=== PATIENT | male | born 1965 | race Caucasian/White ===

== ENCOUNTER 2021-09-01 22:22 | Inpatient (IN) ==
--- NOTE | 2021-09-01 23:35 | Emergency Department Note ---
History of Present Illness General Chief complaint: Fall Stated complaint: SHAKING, FALLING, NOT EATING Time Seen by Provider: 09/01/21 22:58 Source: patient and family Mode of arrival: wheelchair Limitations: no limitations History of Present Illness Provider complaint: Weakness, multiple falls Onset (ago): month(s) Maximum Pain Intensity: 7 Relieved By: + none Exacerbated By: + movement Associated symptoms: + headaches, + loss of appetite, + malaise, + nausea/vomiting, + syncope and + weakness; no chest pain, no fever/chills or no shortness of breath Treatments prior to arrival: NSAID This is a 56-year-old male presents emergency department complaining of [facility] ed weakness, multiple falls, back pain, poor appetite, abdominal pain. Family bedside states believe the symptoms began about a month ago, patient states he initially began to not feel well 3 months ago however got much worse a month ago. Patient relates he has low back pain in addition and falls frequently because his legs feel weak and "give out". Patient denies any prior history of back problems or prior surgery. Patient states he has struck his head on falling, is unsure if he has lost consciousness because he is fallen so many times he cannot recall. Patient denies any recent change in medications. Patient states he is also having accompanying diarrhea, he states he has seen blood once otherwise no recurrent bloody bowel movements. Denies melena. Patient states he is intermittently nauseated, however has not vomited. Family bedside states he has had diminishing oral intake which they felt was contributing to the weakness. Patient denies chest pain or trouble breathing. He states he has mild paresthesias in the lower extremities also, denies incontinence. Patient states he feels his low back pain radiates forward into the abdomen. Family states he has multiple bruises from falling. Patient states he feels that is making his knee pain worse. Pt seen during a time of high acuity and national emergency pandemic while wearing PPE. Home Medications Medication Instructions Recorded Confirmed Type No Known Home Medications 09/02/21 09/02/21 History Allergies Allergy/AdvReac Type Severity Reaction Status Date / Time No Known Allergies Allergy Verified 09/02/21 00:01 Past Med/Surg History Medical History Alcohol abuse Family History Mother Diabetes Father Diabetes Social History Smoking Status: Current every day smoker Preferred Language: Mongolian Communication Ability: confused [employer] Specialist Required: No Feels Safe at Home: Yes Assistive Devices: Glasses Review of Systems A total of 10 systems reviewed and were otherwise negative All systems reviewed & are unremarkable except as noted in HPI & below Physical Exam Vital Signs Vital Signs - 24 hr 09/02/21 05:59 Pulse Rate [Right Finger] 84 Respiratory Rate 18 Respiratory Effort / Characteristics Non-Labored Spontaneous Respiratory Depth Normal Respiratory Pattern Regular Blood Pressure [Right Arm] 130/79 Blood Pressure Mean [Right Arm] 96 Pulse Oximetry 96 Oxygen Delivery Method Room Air GENERAL: alert, ill appearing, well nourished, no distress, non-toxic, laying left lateral recumbent EYE EXAM: normal conjunctiva, PERRL and EOM's grossly intact OROPHARYNX: no exudate, no erythema, lips, buccal mucosa, and tongue normal and mucous membranes are dry NECK: supple, no nuchal rigidity, no adenopathy, non-tender LUNGS: Clear to auscultation. Normal chest wall mechanics, no w/r/r HEART: no murmurs, S1 normal and S2 normal ABDOMEN: abdomen soft, non-tender, normo-active bowel sounds, no masses, no rebound or guarding. Dull to percussion. BACK: Back is symmetrical on inspection and there is no deformity, midline tenderness at superior lumbar region, no CVA tenderness. No pain with palpation over the sacrum or PSIS bilaterally. SKIN: no rashes and no bruising UPPER EXTREMITIES: upper extremities are grossly normal. FROM, nml pulses b/l. LOWER EXTREMITIES: No pitting edema. FROM, nml pulses b/l. Multiple contusions noted bilateral knees and distal lower extremities. Ecchymotic areas in various stages of healing. Healing abrasion noted to the left anterior knee. Patient is able to raise his legs up off the bed without ataxia although states this makes his back pain worse and causes pain in bilateral thighs. NEURO EXAM: Normal sensorium, cranial nerves II-XII grossly intact, normal speec h, no gross weakness of arms, no gross weakness of legs. Gross sensation intact. Course Course 0420: Updated on results. States he has previously had hepatitis and was treated. Denies current alcohol use or frequent use of tylenol. 07: Discussed with Dr. Reid. Administered Medications Folic Acid (Folic Acid 1 Mg Tab) 1 mg PO QAM DEVON Stop: 10/02/21 08:59 Last Admin: 09/02/21 10:41 Dose: 1 mg Documented by: [id number] Thiamine HCl 500 mg/ Sodium (Chloride) 55 mls @ 220 mls/hr IV Q8H DEVON Stop: 09/04/21 09:44 Last Admin: 09/03/21 01:53 Dose: 220 mls/hr Documented by: [id number] Infusion: 09/02/21 19:16 Dose: 220 mls/hr Documented by: [id number] Admin: 09/02/21 18:41 Dose: 220 mls/hr Documented by: [id number] Infusion: 09/02/21 11:21 Dose: 0 mls/hr Documented by: [id number] Admin: 09/02/21 10:42 Dose: 220 mls/hr Documented by: [id number] Lorazepam (Ativan) 1 mg in 2 mls @ 2 mls/min IV ONE PRN; Protocol PRN Reason: EtoH Withdrawal AWSS 6-10 Stop: 10/02/21 09:32 Last Admin: 09/02/21 15:55 Dose: 2 mls/min Documented by: [id number] Nicotine (Nicotine 21 Mg/24 Hr Tdsy) 21 mg TD QAM DEVON Stop: 10/02/21 15:06 Last Admin: 09/02/21 16:02 Dose: 21 mg Documented by: [id number] Discontinued Medications Lactated Ringer's (Lr) 1,000 mls @ 250 mls/hr IV .Q4H DEVON Stop: 10/01/21 23:44 Last Admin: 09/02/21 16:09 Dose: Not Given Documented by: [id number] Infusion: 09/02/21 16:08 Dose: 0 mls/hr Documented by: [id number] Admin: 09/02/21 10:41 Dose: 250 mls/hr Documented by: [id number] Infusion: 09/02/21 08:58 Dose: 250 mls/hr Documented by: [id number] Admin: 09/02/21 04:58 Dose: 250 mls/hr Documented by: [id number] Infusion: 09/02/21 04:07 Dose: 0 mls/hr Documented by: [id number] Admin: 09/02/21 00:00 Dose: 250 mls/hr Documented by: [id number] Ceftriaxone Sodium (Rocephin) 2,000 mg in 70 mls @ 140 mls/hr IV NOW STA Stop: 09/02/21 01:52 Last Infusion: 09/02/21 04:08 Dose: 0 mls/hr Documented by: [id number] Admin: 09/02/21 01:45 Dose: 140 mls/hr Documented by: [id number] Folic Acid 1 mg/ Syringe 10 mls @ 5 mls/min IV NOW STA Stop: 09/02/21 14:36 Last Admin: 09/02/21 16:02 Dose: 5 mls/min Documented by: [id number] Ioversol (Optiray 320 100ml) 99 ml IV ONCE ONE Stop: 09/02/21 01:54 Last Admin: 09/02/21 01:53 Dose: 1 ml Documented by: [id number] Medical Decision Making Differential Diagnosis Differential Diagnosis includes but is not limited to dehydration, stroke, anemia, hypoglycemia, hyponatremia, hypernatremia, urinary tract infection, pneumonia, bronchitis, sepsis, gastroenteritis, additional abdominal pathology, metabolic abnormalities and infections. Medical Records Attestation: I reviewed the patient's medical records. Home Medications Current Medication List: was personally reviewed by me Laboratory Data Attestation: I reviewed the patient's lab results. Result diagrams: 09/01/21 22:55 09/01/21 22:55 Lab Results 09/01/21 09/01/21 09/01/21 Range/Units 22:55 22:55 22:55 WBC 8.37 (4.8-10.8) K/uL RBC 3.44 L (4.7-6.1) M/uL Hgb 14.1 (14.0-18.0) g/dL Hct 40.5 L (42-52) % MCV 117.7 H (80-100) fL MCH 41.0 H (25-34) pg MCHC 34.8 (32-36) g/dL RDW Std Deviation 59.5 H (36.4-46.3) fL RDW Coeff of Chrissy 13.9 (11.5-14.5) % Plt Count 137 (130-400) K/uL MPV 12.0 H (7.4-10.4) fL Immature Gran % (Auto) 0.4 % Neut % (Auto) 67.6 % Lymph % (Auto) 22.2 % [place] % (Auto) 8.6 % Eos % (Auto) 0.7 % Baso % (Auto) 0.5 % Neut # (Auto) 5.66 (1.4-6.5) K/uL Lymph # (Auto) 1.86 (1.2-3.4) K/uL [place] # (Auto) 0.72 H (0.11-0.59) K/uL Eos # (Auto) 0.06 (0-0.5) K/uL Baso # (Auto) 0.04 (0-0.2) K/uL Immature Gran # (Auto) 0.03 H (0.00-0.02) K/uL Macrocytosis Present PT 13.1 H (9.0-12.0) Seconds INR 1.3 H (0.9-1.1) Sodium 136 (136-145) mmol/L Potassium 3.2 L (3.5-5.1) mmol/L Chloride 93 L (98-107) mmol/L Carbon Dioxide 31 (21-32) mmol/L Anion Gap 12.0 H (3-11) BUN 15 (7-18) mg/dl Creatinine 1.36 (0.6-1.4) mg/dl Est Cr Clr Drug Dosing 63.1 ml/min Est GFR ( Amer) 66.0 ml/min Est GFR (Non-Af Amer) 57.0 ml/min BUN/Creatinine Ratio 11.3 (10-20) Glucose 112 H (70-99) mg/dl Calcium 8.3 L (8.5-10.1) mg/dl Magnesium 2.2 (1.8-2.4) mg/dl Total Bilirubin 3.2 H (0.2-1) mg/dl AST 115 H (15-37) U/L ALT 43 (12-78) U/L Alkaline Phosphatase 107 (45-117) U/L Troponin I < 0.015 (0-0.045) ng/ml NT-Pro-B Natriuret Pep 1739 H (0-900) pg/ml Total Protein 6.3 L (6.4-8.2) gm/dl Albumin 1.6 L (3.4-5.0) gm/dl Globulin 4.7 H (2.5-4.0) gm/dl Albumin/Globulin Ratio 0.3 L (0.9-2) Lipase 594 H (73-393) U/L TSH 3.780 (0.300-4.500) uIu/ml Urine Color Urine Appearance (Clear) Urine pH (4.5-7.5) Ur Specific [place] (1.000-1.030) Urine Protein (Negative) Urine Glucose (UA) (Negative) Urine Ketones (Negative) Urine Blood (Negative) Urine Nitrite (Negative) Urine Bilirubin (Negative) Urine Urobilinogen (Negative) Ur Leukocyte Esterase (Negative) Urine WBC (Auto) (0-5) /hpf Urine RBC (Auto) (0-4) /hpf U Hyaline Cast (Auto) (0-5) /lpf U Epithel Cells (Auto) (0-5) /lpf Urine Bacteria (Auto) (Negative) Urine Mucus (None Prsent) Urine Yeast Lyme Disease IgG Ab (Negative) Lyme Disease IgM Ab (Negative) SARS-CoV-2 (PCR) (Negative) 09/01/21 09/02/21 09/02/21 Range/Units 23:30 00:11 00:31 WBC (4.8-10.8) K/uL RBC (4.7-6.1) M/uL Hgb (14.0-18.0) g/dL Hct (42-52) % MCV (80-100) fL MCH (25-34) pg MCHC (32-36) g/dL RDW Std Deviation (36.4-46.3) fL RDW Coeff of Chrissy (11.5-14.5) % Plt Count (130-400) K/uL MPV (7.4-10.4) fL Immature Gran % (Auto) % Neut % (Auto) % Lymph % (Auto) % [place] % (Auto) % Eos % (Auto) % Baso % (Auto) % Neut # (Auto) (1.4-6.5) K/uL Lymph # (Auto) (1.2-3.4) K/uL [place] # (Auto) (0.11-0.59) K/uL Eos # (Auto) (0-0.5) K/uL Baso # (Auto) (0-0.2) K/uL Immature Gran # (Auto) (0.00-0.02) K/uL Macrocytosis PT (9.0-12.0) Seconds INR (0.9-1.1) Sodium (136-145) mmol/L Potassium (3.5-5.1) mmol/L Chloride (98-107) mmol/L Carbon Dioxide (21-32) mmol/L Anion Gap (3-11) BUN (7-18) mg/dl Creatinine (0.6-1.4) mg/dl Est Cr Clr Drug Dosing ml/min Est GFR ( Amer) ml/min Est GFR (Non-Af Amer) ml/min BUN/Creatinine Ratio (10-20) Glucose (70-99) mg/dl Calcium (8.5-10.1) mg/dl Magnesium (1.8-2.4) mg/dl Total Bilirubin (0.2-1) mg/dl AST (15-37) U/L ALT (12-78) U/L Alkaline Phosphatase (45-117) U/L Troponin I (0-0.045) ng/ml NT-Pro-B Natriuret Pep (0-900) pg/ml Total Protein (6.4-8.2) gm/dl Albumin (3.4-5.0) gm/dl Globulin (2.5-4.0) gm/dl Albumin/Globulin Ratio (0.9-2) Lipase (73-393) U/L TSH (0.300-4.500) uIu/ml Urine Color [place] Urine Appearance Cloudy A (Clear) Urine pH 5.5 (4.5-7.5) Ur Specific [place] 1.026 (1.000-1.030) Urine Protein 1+ H (Negative) Urine Glucose (UA) Negative (Negative) Urine Ketones Trace H (Negative) Urine Blood Negative (Negative) Urine Nitrite Positive A (Negative) Urine Bilirubin 3+ H (Negative) Urine Urobilinogen Positive H (Negative) Ur Leukocyte Esterase 1+ H (Negative) Urine WBC (Auto) 1-5 (0-5) /hpf Urine RBC (Auto) 0-4 (0-4) /hpf U Hyaline Cast (Auto) 10-30 H (0-5) /lpf U Epithel Cells (Auto) 10-20 H (0-5) /lpf Urine Bacteria (Auto) Negative (Negative) Urine Mucus Present A (None Prsent) Urine Yeast Not Reportable Lyme Disease IgG Ab Negative (Negative) Lyme Disease IgM Ab Negative (Negative) SARS-CoV-2 (PCR) NEGATIVE (Negative) Imaging Data Radiologist's Impression: Lumbar Spine CT 09/01/21 23:28 CT lumbar spine w con HISTORY: back pain, recent trauma TECHNIQUE: Multiaxial CT images the lumbar spine performed and reformatted in the sagittal and coronal plane following the intravenous administration of contrast COMPARISON STUDY: None. FINDINGS: There is no fracture or subluxation. No high-grade central canal stenosis by CT technique. Paraspinal soft tissues are unremarkable. Disc spaces are preserved for age. IMPRESSION: No fractures within the lumbar spine. ACT 112: Negative or not required by law. Electronically signed by: Layo Kapoor M.D. 09/02/2021 8:44 AM Lumbar Spine MRI 09/02/21 04:10 MRI OF THE LUMBAR SPINE WITHOUT CONTRAST CLINICAL HISTORY: leg weakness, incontinence COMPARISON STUDY: Lumbar spine CT September 02, 2021. TECHNIQUE: Utilizing a 1.5 Bhavna magnet and dedicated coil, multiplanar, multiecho imaging of the lumbar spine was performed without IV contrast. FINDINGS: For purposes of numbering on this exam, the L5-S1 disc space is assigned to axial image 23 of 25. Alignment of the lumbar spine is anatomic. Vertebral body heights are maintained. There is no marrow edema or marrow replacement. There is no fracture. Several small Schmorl's nodes are noted. There is no intracanalicular mass or fluid collection. The conus terminates at the L1-L2 level. Exam is mildly compromised by motion artifact but is diagnostic. Paravertebral soft tissues are unremarkable. L1-2: The central canal and neural foramen are patent. L2-3: The central canal and neural foramen are patent. L3-4: There is mild facet arthrosis. Central canal and neural foramen are patent L4-5: There is mild disc bulge with facet arthrosis. There is mild narrowing of the central canal, lateral recesses and neural foramen. L5-S1: There is mild disc bulge and mild facet arthrosis. Central canal is patent. There is mild narrowing of the left neural foramen. Right neural foramen is patent. IMPRESSION: 1. No acute process within the lumbar spine. 2. Mild multilevel degenerative disc disease and facet arthrosis, as described above. ACT 112: Negative or not required by law. Electronically signed by: William Anderson M.D. 09/02/2021 7:[address] head: No intracranial hemorrhage. No significant mass-effect or midline shift. No skull fracture. Incidental minimal parenchymal involutional changes and periventricular deep white matter hypodense changes noted. No significant overlying acute traumatic soft tissue abnormality. No radiopaque foreign body. The paranasal sinuses and mastoid air cells are well aerated. Radiologist: Sampson Baltazar MD CT C-spine: Motion artifact despite repeated imaging attempts. No definite acute osseous traumatic injury. No abnormal alignment. Incidental multilevel disc and facet hypertrophic changes results in minimal encroachment on the central canal and chronic appearing osseous neuroforaminal encroachment. Radiologist: Sampson Baltazar MD CT abdomen and pelvis with contrast: The intra-abdominal solid organs demonstrate no evidence for significant acute traumatic injury. Incidental similar hepatic steatosis when compared to the examination 01/27/2014. No traumatic bowel injury. No free intra peritoneal fluid or pneumoperitoneum. The retroperitoneal vascular structures are intact. No retroperitoneal hematoma. The bladder is mildly distended with diffuse mucosal prominence. No bladder stones. No acute osseous or significant overlying acute traumatic soft tissue abnormality. Radiologist: Sampson Baltazar MD CT L-spine: No acute osseous traumatic injury or abnormal alignment. Radiologist: Sampson Baltazar MD ECG Data Attestation: I personally reviewed and interpreted this ECG as follows: Indication: + weakness Rate (beats per minute): 77 Rhythm: + normal sinus ECG Intervals/blocks: + First degree AV block, + Normal QRS and + Prolonged QT ECG [place]: + Normal MDM Narrative This is an ill-appearing 56-year-old male brought in due to multiple falls, decreased oral intake, and worsening weakness. Patient with multiple complaints and positive symptoms on a review of systems. Patient was afebrile and hemodynamically stable. Labs drawn and sent with several abnormalities noted. Due to the various complaints patient sent for multiple images via CT as well as an accompanying chest x-ray. Due to additional consideration given his weakness and recurrent falls as well as increased low back pain, patient ultimately sent for a lumbar spine MRI as well. No evidence of cauda equina or acute spine pathology. Imaging reassuring, no acute trauma noted. Lyme and Covid negative. Patient states he did have a prior history of hepatitis that was treated. A repeat hepatitis panel was added. Ammonia level was added in addition although patient was oriented and conversational here. He was rehydrated as a precaution. Due to concern for worsening symptoms, inability to care for self, and concern for safety given the recurrent falls, case was discussed with hospitalist for additional evaluation and management. An order was placed for continuous cardiac monitoring. The monitor shows a rate of _86_ with _normal sinus__ rhythm. Impression & Plan Weakness, Abnormal LFTs, Acute UTI (urinary tract infection), Back pain Discharge Plan Visit Data Chief Complaint: Fall Stated Complaint: SHAKING, FALLING, NOT EATING ED Provider: Germaine Garcia Discharge Problem: Weakness, Abnormal LFTs, Acute UTI (urinary tract infection), Back pain Patient Disposition: Admitted As Inpatient Condition: Fair Discharge Instructions Interventions: ED Discharge Assessment Last Done: 09/02/21 09:04
[2021-09-01 23:42] LABS: Basophils # (auto) 0.04 K/uL (0-0.2); Basophils % (auto) 0.5 %; Eosinophils # (auto) 0.06 K/uL (0-0.5); Eosinophils % (auto) 0.7 %; Hematocrit (blood only) 40.5 % (42-52); Hemoglobin 14.1 g/dL (14.0-18.0); Immature Granulocytes # (auto) 0.03 K/uL (0.00-0.02); Immature Granulocytes % (auto) 0.4 %; Lymphocytes # (auto) 1.86 K/uL (1.2-3.4); Lymphocytes % (auto) 22.2 %; Mean Corpuscular Hgb Conc 34.8 g/dL (32-36); Mean Corpuscular Volume 117.7 fL (80-100); Monocytes # (auto) 0.72 K/uL (0.11-0.59); Monocytes % (auto) 8.6 %; Neutrophils # (auto) 5.66 K/uL (1.4-6.5); Neutrophils % (auto) 67.6 %; Platelet Count 137 K/uL (130-400); RDW Coefficient of Variation 13.9 % (11.5-14.5); RDW Standard Deviation 59.5 fL (36.4-46.3); Red Blood Count 3.44 M/uL (4.7-6.1); White Blood Count 8.37 K/uL (4.8-10.8)
[2021-09-01 23:50] LABS: Alanine Aminotransferase 43 U/L (12-78); Albumin Level 1.6 gm/dl (3.4-5.0); Aspartate Aminotransferase 115 U/L (15-37); BUN Creatinine Ratio 11.3 (10-20); Blood Urea Nitrogen 15 mg/dl (7-18); Calcium 8.3 mg/dl (8.5-10.1); Carbon Dioxide 31 mmol/L (21-32); Chloride 93 mmol/L (98-107); Creatinine Clr Calc Pharmacy 63.1 ml/min; Glucose 112 mg/dl (70-99); Lipase 594 U/L (73-393); Magnesium 2.2 mg/dl (1.8-2.4); Potassium 3.2 mmol/L (3.5-5.1); Sodium 136 mmol/L (136-145)
[2021-09-01 23:52] LABS: INR 1.3 (0.9-1.1); Prothrombin Time 13.1 Seconds (9.0-12.0)
[2021-09-02 00:01] LABS: Albumin Globulin Ratio 0.3 (0.9-2); Alkaline Phosphatase 107 U/L (45-117); Bilirubin,Total 3.2 mg/dl (0.2-1); Globulin 4.7 gm/dl (2.5-4.0); NT Pro B Type Natriuretic Pept 1739 pg/ml (0-900); Total Protein 6.3 gm/dl (6.4-8.2); Troponin I < 0.015 ng/ml (0-0.045)
[2021-09-02 00:05] LABS: Macrocytosis Present
[2021-09-02 00:46] LABS: Appearance Urine Cloudy (Clear); Bacteria Urine Automated Negative (Negative); Blood Urine Negative (Negative); Color Urine Orange; Glucose Urine UA Negative (Negative); Ketones Urine Trace (Negative); Leukocyte Esterase Urine 1+ (Negative); Nitrite Urine Positive (Negative); Protein Urine 1+ (Negative); RBC Urine Automated 0-4 /hpf (0-4); Specific Gravity Urine 1.026 (1.000-1.030); Urobilinogen Urine Positive (Negative); pH Urine 5.5 (4.5-7.5)
[2021-09-02 00:57] LABS: Bilirubin Urine 3+ (Negative)
[2021-09-02 00:58] LABS: Mucus Urine Present (None Prsent)
[2021-09-02] MEDS ORDERED: cefTRIAXone SODIUM 2,000 MG/70 ML BAG IV STA (01:23)
[2021-09-02] MEDS ORDERED: OPTIRAY 320 100ml IV ONE (01:53)
[2021-09-02 01:57] LABS: Lyme Ab IgG w/WB Rflx Negative (Negative); Lyme Ab IgM w/WB Rflx Negative (Negative)
[2021-09-02] MEDS: LACTATED RINGER'S 1,000 ML IV SCH ×4 (04:58→16:09)
--- NOTE | 2021-09-02 07:51 | Magnetic Resonance Report ---
MRI OF THE LUMBAR SPINE WITHOUT CONTRAST CLINICAL HISTORY: leg weakness, incontinence COMPARISON STUDY: Lumbar spine CT September 02, 2021. TECHNIQUE: Utilizing a 1.5 Bhavna magnet and dedicated coil, multiplanar, multiecho imaging of the [facility] spine was performed without IV contrast. FINDINGS: For purposes of numbering on this exam, the L5-S1 disc space is assigned to axial image 23 of 25. Ali gnment of the lumbar spine is anatomic. Vertebral body heights are maintained. There is no marrow reno ma or marrow replacement. There is no fracture. Several small Schmorl's nodes are noted. There is no intracanalicular mass or fluid collection. The conus terminates at the L1-L2 level. Exam is mildly co mpromised by motion artifact but is diagnostic. Paravertebral soft tissues are unremarkable. L1-2: The central canal and neural foramen are patent. L2-3: The central canal and neural foramen are patent. L3-4: There is mild facet arthrosis. Central canal and neural foramen are patent L4-5: There is mild disc bulge with facet arthrosis. There is mild narrowing of the central canal, la teral recesses and neural foramen. L5-S1: There is mild disc bulge and mild facet arthrosis. Central canal is patent. There is mild narr owing of the left neural foramen. Right neural foramen is patent. IMPRESSION: 1. No acute process within the lumbar spine. 2. Mild multilevel degenerative disc disease and facet arthrosis, as described above. ACT 112: Negative or not required by law. Electronically signed by: William Anderson M.D. 09/02/2021 7:49 AM
--- NOTE | 2021-09-02 08:45 | CT Scan Report ---
CT lumbar spine w con HISTORY: back pain, recent trauma TECHNIQUE: Multiaxial CT images the lumbar spine performed and reformatted in the sagittal and [place] l plane following the intravenous administration of contrast COMPARISON STUDY: None. FINDINGS: There is no fracture or subluxation. No high-grade central canal stenosis by CT technique. Paraspinal soft tissues are unremarkable. Disc spaces are preserved for age. IMPRESSION: No fractures within the lumbar spine. ACT 112: Negative or not required by law. Electronically signed by: Layo Kapoor M.D. 09/02/2021 8:44 AM
--- NOTE | 2021-09-02 09:13 | CT Scan Report ---
ABDOMEN AND PELVIS CT WITH IV CONTRAST CT DOSE: HISTORY: Generalized abdominal pain. Recent trauma. TECHNIQUE: Multiaxial CT images of the abdomen and pelvis were performed following the use of intrave nous contrast. A dose lowering technique was utilized adhering to the principles of ALARA. COMPARISON STUDY: Abdomen and pelvis CT 01/27/2014. FINDINGS: The lung bases are clear. No pneumoperitoneum. No pneumatosis. No acute fractures within th e visualized osseous structures. Hepatic steatosis. The gallbladder, pancreas, spleen, and right adre nal gland are unremarkable. The main portal vein is patent. There is a 1.5 cm cyst within the upper p ole the right kidney. There are are a few additional subcentimeter hypodense lesions within the kidne ys which are technically too small to characterize. A 1.5 cm left adrenal gland nodule. This remains stable and likely represents a benign adrenal adenoma. There is a 1.6 cm hypodense lesion within the upper pole the left kidney. This does not clearly represent a simple cyst. No retroperitoneal lymphad enopathy. Mild calcified plaque within the normal caliber abdominal aorta. Bladder wall thickening is likely due to underdistention. No pelvic free fluid. No bowel wall thickening or obstruction. Normal appendix. IMPRESSION: 1. No acute traumatic process within the abdomen or pelvis. 2. Hepatic steatosis. 3. A 1.5 cm hypodense lesion within the upper pole the left kidney. This does not clearly represent a simple cyst but could represent a hyperdense cyst. Dedicated follow-up nonemergent renal ultrasound or renal MRI is recommended for further evaluation. 4. Bladder wall thickening. This is likely due to underdistention. ACT 112: Positive. There are findings on this exam that require communication between the performing entity and the patient following Patient Test Result Information Act ([place] Act 112) guidelines. Electronically signed by: Layo Kapoor M.D. 09/02/2021 9:12 AM
[2021-09-02] MEDS ORDERED: LORazepam 1 MG/2 ML VIAL IV PRN (09:33)
--- NOTE | 2021-09-02 09:34 | Ultrasound Report ---
ABDOMINAL ULTRASOUND, RIGHT UPPER QUADRANT HISTORY: Abdominal pain. COMPARISON: Abdominal ultrasound January 28, 2014. CT of the abdomen and pelvis performed earlier toda y. FINDINGS: Hepatic echogenicity is increased. No hepatic lesions are identified although sensitivity i s diminished given suboptimal penetration. Gallbladder is largely filled with sludge. No definite gal lstones are noted. There is no gallbladder wall thickening. No pericholecystic fluid is present. No s onographic Menendez sign was elicited. There is no biliary ductal dilatation. Common bile duct measures 6 mm in caliber. The pancreas is largely obscured. There is no right hydronephrosis. IMPRESSION: 1. Hepatic steatosis. 2. Sludge within the gallbladder. No evidence for acute cholecystitis. 2. No biliary ductal dilatation. 4. Exam compromised by suboptimal penetration. Obscured pancreas. ACT 112: Negative or not required by law. Electronically signed by: William Anderson M.D. 09/02/2021 9:32 AM
[2021-09-02 09:49] LABS: Vitamin B12 > 2000 pg/ml (193-986)
--- NOTE | 2021-09-02 10:16 | CT Scan Report ---
HEAD CT NONCONTRAST CT DOSE: HISTORY: Fall. trauma TECHNIQUE: Multiaxial CT images of the head were performed without the use of intravenous contrast. A utomated exposure control was utilized for this study. A dose lowering technique was utilized adheri ng to the principles of ALARA. Comparison: Head CT 01/26/2014. Findings: The paranasal sinuses and mastoid air cells are clear. The calvarium and skull base are int act. There is no mass, hematoma, midline shift, acute infarct. White matter hypodensity is nonspecifi c but suggestive of microvascular ischemic change. The ventricles and sulci demonstrate mild age-rela kurtis involutional changes. Impression: No acute intracranial abnormality. ACT 112: Negative or not required by law. Electronically signed by: Layo Kapoor M.D. 09/02/2021 10:15 AM
--- NOTE | 2021-09-02 10:26 | CT Scan Report ---
CERVICAL SPINE CT CT DOSE: HISTORY: Fall. Neck pain. trauma TECHNIQUE: Multiaxial CT images of the cervical spine were performed and reformatted in the sagittal and coronal plane without the use of contrast. A dose lowering technique was utilized adhering to th e principles of ALARA. COMPARISON: None. FINDINGS: No fractures. No subluxation. Prevertebral soft tissues and the C1-C2 interval are intact. No pneumothorax. IMPRESSION: No fractures within the cervical spine. ACT 112: Negative or not required by law. Electronically signed by: Layo Kapoor M.D. 09/02/2021 10:25 AM
[2021-09-02] MEDS ORDERED: ONDANSETRON INJ 2 MG/ML 2 ML VIAL IV PRN (10:30)
[2021-09-02] MEDS: FOLIC ACID 1 MG TAB PO SCH (10:41)
[2021-09-02] MEDS: THIAMINE HCL 500 MG in SODIUM CHLORIDE 0.9% 50 ML IV SCH ×2 (10:42→18:41)
--- NOTE | 2021-09-02 10:57 | XRay Report ---
XR chest 1V portable CLINICAL HISTORY: trauma COMPARISON STUDY: Chest radiograph February 03, 2014. FINDINGS: Lung volumes are normal. Lungs are clear. There is no pneumothorax or pleural effusion. Car diac size is normal. Mediastinal contours are normal. There is no evidence for pulmonary edema. Sever al old left anterior rib fractures are noted. IMPRESSION: No acute cardiopulmonary findings. ACT 112: Negative or not required by law. Electronically signed by: William Anderson M.D. 09/02/2021 10:55 AM
--- NOTE | 2021-09-02 12:28 | Electrocardiogram Report ---
Test Reason : Blood Pressure : / mmHG Vent. Rate : 075 BPM Atrial Rate : 075 BPM P-R Int : 196 ms QRS Dur : 110 ms QT Int : 496 ms P-R-T Axes : 070 -11 044 degrees QTc Int : 553 ms Normal sinus rhythm Prolonged QT Abnormal ECG When compared with ECG of 01-SEP-2021 22:59, (unconfirmed) No significant change was found Confirmed by Mike Meneses ([id number]) on 09/02/2021 12:28:13 PM Referred By: REFERRED SELF Confirmed By:Jaswant Meneses
--- NOTE | 2021-09-02 12:28 | Electrocardiogram Report ---
Test Reason : Blood Pressure : / mmHG Vent. Rate : 077 BPM Atrial Rate : 077 BPM P-R Int : 204 ms QRS Dur : 106 ms QT Int : 486 ms P-R-T Axes : 053 -26 052 degrees QTc Int : 549 ms Normal sinus rhythm Nonspecific ST abnormality Prolonged QT Abnormal ECG When compared with ECG of 27-JAN-2014 07:11, ST no longer elevated in Anterior leads Nonspecific T wave abnormality now evident in Inferior leads T wave inversion now evident in Anterior leads QT has lengthened Confirmed by Mike Meneses ([id number]) on 09/02/2021 12:28:07 PM Referred By: REFERRED SELF Confirmed By:Jaswant Meneses
[2021-09-02] MEDS ORDERED: FOLIC ACID 1 MG in SYRINGE 9.8 ML IV STA (14:35)
--- NOTE | 2021-09-02 14:39 | History & Physical Report ---
Date of Service September 02, 2021 Assessment & Plan (1) Alcohol abuse: Plan: Only reports drinking ~4 drinks/day, but I do suspect that it could be more given his falls throughout the day. RUQ u/s on 09/02 showed hepatic steatosis. - JESSENIA protocol with PRN Ativan. -> Per patient, no present withdrawals and has been abstinent for 3-4 days, so hopefully will have fairly mild withdrawals. - Will give thiamine IV TID x 2 days, then switch to PO to avoid Wernicke's - Supplement folate as well given low level (2) Alcoholic hepatitis: Plan: AST/ALT only 115/43. Tbili 3.2. INR 1.3. Maddrey's DF is only 8 on admission. - Monitor; no role for steroids at present (3) Failure to thrive: Plan: Due to malnutrition and drinking. Lumbar MRI on 09/02 did not show any acute process. - PT/OT (4) Depression: Plan: Depressed over loss of job. - Consider SSRI if patient willing - Encourage outpatient therapy/counseling/AA (5) Urinary retention: Plan: On medical hx list. - Monitor (6) DVT prophylaxis: Plan: Lovenox 40 mg SQ daily Admission and Anticipated Discharge Date Admission Date: September 02, 2021 History of Present Illness Primary Care Provider: NO PCP 56yo M w/ [facility] of [facility] issue who presents with failure to thrive and falls due to alcohol use. He reports he lost his job about 6 months ago and has been eating less and drinking more over that time. He and family report poor PO intake as well as increased alcohol use. He reports he drinks 2 "[employer] [place]" beers per day which would be equivalent to ~4 alcoholic beverages (larger cans and ABV ~8%). Over the last few weeks, his falls have been worse, and he fell at least 3 times yesterday with one time striking his head. He has also been losing weight at home. He was brought in by family for evaluation for failure to thrive. He reports about 1 year prior he went through alcohol detox. He reports he "was told" he had a seizure at that time, but does not recall it. He reports his last drink was 3 days ago and denies any present withdrawal symptoms. He denies other substance use. Allergies Allergy/AdvReac Type Severity Reaction Status Date / Time No Known Allergies Allergy Verified 09/02/21 00:01 Home Medications Medication Instructions Recorded Confirmed Type No Known Home Medications 09/02/21 09/02/21 History Past Med/Surg History Medical History Alcohol abuse Family History Mother Diabetes Father Diabetes Social History Smoking Status: Current every day smoker Preferred Language: Panamanian Communication Ability: confused Special Education Case Manager Required: No Feels Safe at Home: Yes Review of Systems Review of Systems: All systems reviewed & are unremarkable except as noted in HPI & below Physical Exam Constitutional: WD/WN, vitals as above + thin Eyes: EOM intact bilaterally; no conjunctival abnormality ENMT: external ear and nose normal, oropharynx normal Neck: trachea midline, no thyromegaly normal visual inspection Respiratory: normal respiratory effort, lungs clear to auscultation no respiratory distress Cardiovascular: RRR, no murmur, no edema Gastrointestinal (Abdomen): Inspection/Auscultation: abdomen normal to inspection; abdomen not distended Musculoskeletal: no cyanosis or clubbing, extremities motor strength 5/5 Skin: no rashes, warm and dry Neurologic: moves all extremities and awake Psychiatric: Orientation: alert, oriented to person and cooperative Results & Data Results & Data ([facility]) Vital Signs (Past 12 Hours) Vital Signs Temp Pulse Resp BP Pulse Ox 09/02/21 10:30 36.3 C L 78 20 132/87 98 09/02/21 07:37 79 18 125/81 96 09/02/21 05:59 84 18 130/79 96 Code Status & VTE Plan VTE Prophylaxis Plan VTE Prophylaxis will be ordered: Yes PG Care Time/CCT Total # of Minutes Spent Total Time Spent with Patient: Total time spent is greater than 50% in coordination of care (as documented) at patient's floor/unit and/or counseling patient: Coding Level of Care Code 92334 Initial Inpt Care Lvl 3 Diagnoses Alcohol abuse F10.10 Alcoholic hepatitis K70.10 Depression F32.9 Urinary retention R33.9 DVT prophylaxis Z29.9 Failure to thrive
[2021-09-02] MEDS: NICOTINE 21 MG/24 HR TDSY TD SCH (16:02)
[2021-09-03] MEDS: THIAMINE HCL 500 MG in SODIUM CHLORIDE 0.9% 50 ML IV SCH ×3 (01:53→18:10)
[2021-09-03 09:04] LABS: Hepatitis B Surf Ag Rflx Conf Neg (Neg)
[2021-09-03 09:40] LABS: Hematocrit (blood only) 42.1 % (42-52); Hemoglobin 14.5 g/dL (14.0-18.0); Mean Corpuscular Hemoglobin 40.1 pg (25-34); Mean Corpuscular Hgb Conc 34.4 g/dL (32-36); Mean Corpuscular Volume 116.3 fL (80-100); Mean Platelet Volume 11.4 fL (7.4-10.4); Platelet Count 131 K/uL (130-400); RDW Coefficient of Variation 13.9 % (11.5-14.5); RDW Standard Deviation 59.5 fL (36.4-46.3); Red Blood Count 3.62 M/uL (4.7-6.1); White Blood Count 5.15 K/uL (4.8-10.8)
[2021-09-03] MEDS: NICOTINE 21 MG/24 HR TDSY TD SCH (09:51)
[2021-09-03] MEDS: FOLIC ACID 1 MG TAB PO SCH (09:52)
[2021-09-03] MEDS: ENOXAPARIN INJ 40 MG/0.4 ML SYR SQ SCH (09:53)
[2021-09-03 10:42] LABS: Albumin Globulin Ratio 0.3 (0.9-2); Albumin Level 1.7 gm/dl (3.4-5.0); BUN Creatinine Ratio 13.3 (10-20); Bilirubin,Total 3.2 mg/dl (0.2-1); Calcium 8.6 mg/dl (8.5-10.1); Creatinine Clr Calc Pharmacy 95.3 ml/min; Est GFR (African American) 108.7 ml/min; Est GFR (Non-African American) 93.8 ml/min; Globulin 5.1 gm/dl (2.5-4.0); Phosphorus 2.8 mg/dl (2.5-4.9); Total Protein 6.8 gm/dl (6.4-8.2)
[2021-09-03 11:39] LABS: Magnesium 2.2 mg/dl (1.8-2.4); Potassium 2.1 mmol/L (3.5-5.1)
--- NOTE | 2021-09-03 11:45 | Hospitalist Progress Note ---
Date of Service September 03, 2021 Assessment & Plan (1) Alcohol abuse: Plan: Only reports drinking ~4 drinks/day, but I do suspect that it could be more given his falls throughout the day. RUQ u/s on 09/02 showed hepatic steatosis. - JESSENIA protocol with PRN Ativan. -> Per patient, no present withdrawals and has been abstinent for 3-4 days, so hopefully will have fairly mild withdrawals. Has only needed a single dose of Ativan and no withdrawals this morning. - Will give thiamine IV TID x 2 days, then switch to PO to avoid Wernicke's - Supplement folate as well given low level - Encourage CM and rehab. (2) Alcoholic hepatitis: Plan: AST/ALT only 115/43. Tbili 3.2. INR 1.3. Maddrey's DF is only 8 on admission. - Monitor; no role for steroids at present. Improving. (3) Failure to thrive: Plan: Due to malnutrition and drinking. Lumbar MRI on 09/02 did not show any acute process. - PT/OT (4) Depression: Plan: Depressed over loss of job. - Consider SSRI if patient willing - Encourage outpatient therapy/counseling/AA (5) Urinary retention: Plan: On medical hx list. - Monitor (6) DVT prophylaxis: Plan: Lovenox 40 mg SQ daily Admission and Anticipated Discharge Date Admission Date: September 02, 2021 Subjective Doing well today. No major issues. No major withdrawal symptoms. Reports no fevers/chills, chest pain, shortness of breath, abdominal pain, nausea, or vomiting. Physical Exam Constitutional: WD/WN, vitals as above + thin Eyes: EOM intact bilaterally; no conjunctival abnormality ENMT: external ear and nose normal, oropharynx normal Neck: trachea midline, no thyromegaly normal visual inspection Respiratory: normal respiratory effort, lungs clear to auscultation no respiratory distress Cardiovascular: RRR, no murmur, no edema Gastrointestinal (Abdomen): Inspection/Auscultation: abdomen normal to inspection; abdomen not distended Musculoskeletal: no cyanosis or clubbing, extremities motor strength 5/5 Skin: no rashes, warm and dry Neurologic: moves all extremities and awake Psychiatric: Orientation: alert, oriented to person and cooperative Results & Data Results & [facility] ([facility]) Vital Signs (Past 12 Hours) Vital Signs Temp Pulse Resp BP Pulse Ox 09/03/21 07:54 36.8 C 76 19 142/87 H 100 09/03/21 04:56 36.1 C L 80 16 155/93 H 97 09/03/21 01:36 36.5 C 78 16 154/99 H 98 PG Care Time/CCT Total # of Minutes Spent Total Time Spent with Patient: Total time spent is greater than 50% in coordination of care (as documented) at patient's floor/unit and/or counseling patient: Coding Level of Care Code 73842 Subseq Hosp Care Lvl 2 Diagnoses Alcohol abuse F10.10 Alcoholic hepatitis K70.10 Failure to thrive Depression F32.9 Urinary retention R33.9 DVT prophylaxis Z29.9
[2021-09-03] MEDS: POTASSIUM CHLORIDE CRTAB 20 MEQ TABCR PO SCH ×2 (13:15→21:42)
[2021-09-03 18:09] LABS: BUN Creatinine Ratio 13.2 (10-20); Calcium 7.8 mg/dl (8.5-10.1); Creatinine Clr Calc Pharmacy 90.3 ml/min; Est GFR (African American) 101.9 ml/min; Est GFR (Non-African American) 87.9 ml/min; Potassium 2.4 mmol/L (3.5-5.1)
[2021-09-03] MEDS ORDERED: POTASSIUM CHLORIDE CRTAB 20 MEQ TABCR PO STA (18:32)
[2021-09-03 18:50] LABS: Magnesium 2.2 mg/dl (1.8-2.4); Phosphorus 2.2 mg/dl (2.5-4.9)
[2021-09-03] MEDS ORDERED: POTASSIUM PHOS 3 MMOL/1 ML INFUSION IV STA (20:51)
[2021-09-03] MEDS ORDERED: POTASSIUM PHOSPHATE 30 MMOL in SODIUM CHLORIDE 0.9% 500 ML IV ONE (21:00)
[2021-09-04] MEDS: THIAMINE HCL 500 MG in SODIUM CHLORIDE 0.9% 50 ML IV SCH (01:36)
[2021-09-04] MEDS: ACETAMINOPHEN 325 MG TAB PO PRN (02:03)
[2021-09-04 04:36] LABS: Hepatitis A Antibody IgM NON-REACTIVE (NON-REACTIVE); Hepatitis B Core Antibody IgM NON-REACTIVE (NON-REACTIVE)
[2021-09-04 07:40] LABS: Hematocrit (blood only) 35.7 % (42-52); Hemoglobin 12.1 g/dL (14.0-18.0); Mean Corpuscular Hemoglobin 40.3 pg (25-34); Mean Corpuscular Hgb Conc 33.9 g/dL (32-36); Mean Platelet Volume 11.8 fL (7.4-10.4); Platelet Count 107 K/uL (130-400); RDW Coefficient of Variation 14.2 % (11.5-14.5); White Blood Count 5.71 K/uL (4.8-10.8)
[2021-09-04 08:06] LABS: Albumin Globulin Ratio 0.3 (0.9-2); Albumin Level 1.2 gm/dl (3.4-5.0); BUN Creatinine Ratio 12.6 (10-20); Bilirubin,Total 2.2 mg/dl (0.2-1); Calcium 7.4 mg/dl (8.5-10.1); Creatinine Clr Calc Pharmacy 92.2 ml/min; Est GFR (African American) 104.5 ml/min; Est GFR (Non-African American) 90.2 ml/min; Globulin 4.1 gm/dl (2.5-4.0); Magnesium 2.2 mg/dl (1.8-2.4); Phosphorus 3.4 mg/dl (2.5-4.9); Total Protein 5.3 gm/dl (6.4-8.2)
[2021-09-04] MEDS: FOLIC ACID 1 MG TAB PO SCH (09:17)
[2021-09-04] MEDS: ENOXAPARIN INJ 40 MG/0.4 ML SYR SQ SCH (09:18)
[2021-09-04] MEDS: NICOTINE 21 MG/24 HR TDSY TD SCH (09:18)
[2021-09-04] MEDS: POTASSIUM CHLORIDE CRTAB 20 MEQ TABCR PO SCH ×2 (09:59→20:34)
--- NOTE | 2021-09-04 10:44 | Hospitalist Progress Note ---
Date of Service September 04, 2021 Assessment & Plan (1) Alcohol abuse: Plan: Only reports drinking ~4 drinks/day, but I do suspect that it could be more given his falls throughout the day. RUQ u/s on 09/02 showed hepatic steatosis. - No major withdrawal symptoms. He only needed a single dose of Ativan. - Will give thiamine IV TID x 2 days, then switch to PO to avoid Wernicke's - Supplement folate as well given low level - Encourage CM and rehab. (2) Alcoholic hepatitis: Plan: AST/ALT only 115/43. Tbili 3.2. INR 1.3. Maddrey's DF is only 8 on admission. - Monitor; no role for steroids at present. Improving. (3) Failure to thrive: Plan: Due to malnutrition and drinking. Lumbar MRI on 09/02 did not show any acute process. - PT/OT -> Plan for rehab. Patient willing today. (4) Depression: Plan: Depressed over loss of job. - Consider SSRI if patient willing - Encourage outpatient therapy/counseling/AA (5) Urinary retention: Plan: On medical hx list. - Monitor (6) DVT prophylaxis: Plan: Lovenox 40 mg SQ daily Admission and Anticipated Discharge Date Admission Date: September 02, 2021 Subjective Doing well. No major issues. Reports no fevers/chills, chest pain, shortness of breath, abdominal pain, nausea, or vomiting. Physical Exam Constitutional: WD/WN, vitals as above + thin Eyes: EOM intact bilaterally; no conjunctival abnormality ENMT: external ear and nose normal, oropharynx normal Neck: trachea midline, no thyromegaly normal visual inspection Respiratory: normal respiratory effort, lungs clear to auscultation no respiratory distress Cardiovascular: RRR, no murmur, no edema Gastrointestinal (Abdomen): Inspection/Auscultation: abdomen normal to inspection; abdomen not distended Musculoskeletal: no cyanosis or clubbing, extremities motor strength 5/5 Skin: no rashes, warm and dry Neurologic: moves all extremities and awake Psychiatric: Orientation: alert, oriented to person and cooperative Results & Data Results & Data ([facility]) Vital Signs (Past 12 Hours) Vital Signs Temp Pulse Resp BP Pulse Ox 09/04/21 07:40 36.7 C 78 18 118/74 95 09/03/21 23:04 36.9 C 86 18 115/73 96 PG Care Time/CCT Total # of Minutes Spent Total Time Spent with Patient: Total time spent is greater than 50% in coordination of care (as documented) at patient's floor/unit and/or counseling patient: Coding Level of Care Code 26696 Subseq Hosp Care Lvl 2 Diagnoses Alcohol abuse F10.10 Alcoholic hepatitis K70.10 Failure to thrive Depression F32.9 Urinary retention R33.9 DVT prophylaxis Z29.9
[2021-09-05 06:50] LABS: Hematocrit (blood only) 36.9 % (42-52); Hemoglobin 12.2 g/dL (14.0-18.0); Mean Corpuscular Hemoglobin 40.3 pg (25-34); Mean Corpuscular Hgb Conc 33.1 g/dL (32-36); Mean Corpuscular Volume 121.8 fL (80-100); Mean Platelet Volume 11.7 fL (7.4-10.4); Platelet Count 108 K/uL (130-400); RDW Coefficient of Variation 14.3 % (11.5-14.5); RDW Standard Deviation 63.6 fL (36.4-46.3); Red Blood Count 3.03 M/uL (4.7-6.1); White Blood Count 5.79 K/uL (4.8-10.8)
[2021-09-05 07:05] LABS: INR 1.3 (0.9-1.1); Partial Thromboplastin Time 27.6 Seconds (21.0-31.0); Prothrombin Time 12.6 Seconds (9.0-12.0)
[2021-09-05 07:22] LABS: Albumin Level 1.3 gm/dl (3.4-5.0); BUN Creatinine Ratio 12.9 (10-20); Calcium 7.8 mg/dl (8.5-10.1); Creatinine Clr Calc Pharmacy 92.2 ml/min; Est GFR (African American) 104.5 ml/min; Est GFR (Non-African American) 90.2 ml/min; Magnesium 2.1 mg/dl (1.8-2.4); Potassium 3.3 mmol/L (3.5-5.1)
[2021-09-05 07:25] LABS: Albumin Globulin Ratio 0.3 (0.9-2); Globulin 4.3 gm/dl (2.5-4.0); Phosphorus 2.5 mg/dl (2.5-4.9); Total Protein 5.6 gm/dl (6.4-8.2)
[2021-09-05] MEDS: ENOXAPARIN INJ 40 MG/0.4 ML SYR SQ SCH (08:23)
[2021-09-05] MEDS: NICOTINE 21 MG/24 HR TDSY TD SCH (08:24)
[2021-09-05] MEDS: FOLIC ACID 1 MG TAB PO SCH (08:24)
[2021-09-05] MEDS: POTASSIUM CHLORIDE CRTAB 20 MEQ TABCR PO SCH ×2 (08:24→20:51)
--- NOTE | 2021-09-05 13:41 | Hospitalist Progress Note ---
Date of Service September 05, 2021 Assessment & Plan (1) Alcohol abuse: Plan: Only reports drinking ~4 drinks/day, but I do suspect that it could be more given his falls throughout the day. RUQ u/s on 09/02 showed hepatic steatosis. - No major withdrawal symptoms. He only needed a single dose of Ativan. - Gave thiamine IV TID x 2 days, then switch to PO to avoid Wernicke's - Supplement folate as well given low level - Encourage CM and rehab. (2) Alcoholic hepatitis: Plan: AST/ALT only 115/43. Tbili 3.2. INR 1.3. Maddrey's DF is only 8 on admission. - Monitor; no role for steroids at present. Improving. (3) Failure to thrive: Plan: Due to malnutrition and drinking. Lumbar MRI on 09/02 did not show any acute process. - PT/OT -> Plan for rehab. Patient willing today. (4) Depression: Plan: Depressed over loss of job. - Consider SSRI if patient willing - Encourage outpatient therapy/counseling/AA (5) Urinary retention: Plan: On medical hx list. - Monitor (6) DVT prophylaxis: Plan: Lovenox 40 mg SQ daily Admission and Anticipated Discharge Date Admission Date: September 02, 2021 Subjective Doing well today. Had a BM today. Reports no fevers/chills, chest pain, shortness of breath, abdominal pain, nausea, or vomiting. Physical Exam Constitutional: WD/WN, vitals as above + thin Eyes: EOM intact bilaterally; no conjunctival abnormality ENMT: external ear and nose normal, oropharynx normal Neck: trachea midline, no thyromegaly normal visual inspection Respiratory: normal respiratory effort, lungs clear to auscultation no respiratory distress Cardiovascular: RRR, no murmur, no edema Gastrointestinal (Abdomen): Inspection/Auscultation: abdomen normal to inspection; abdomen not distended Musculoskeletal: no cyanosis or clubbing, extremities motor strength 5/5 Skin: no rashes, warm and dry Neurologic: moves all extremities and awake Psychiatric: Orientation: alert, oriented to person and cooperative Results & Data Results & Data ([facility]) Vital Signs (Past 12 Hours) Vital Signs Temp Pulse Resp BP Pulse Ox 09/05/21 07:52 36.7 C 94 H 19 100/63 94 PG Care Time/CCT Total # of Minutes Spent Total Time Spent with Patient: Total time spent is greater than 50% in coordination of care (as documented) at patient's floor/unit and/or counseling patient: Coding Level of Care Code 33536 Subseq Hosp Care Lvl 2 Diagnoses Alcohol abuse F10.10 Alcoholic hepatitis K70.10 Failure to thrive Depression F32.9 Urinary retention R33.9 DVT prophylaxis Z29.9
[2021-09-05] MEDS: ACETAMINOPHEN 325 MG TAB PO PRN (20:51)
[2021-09-06] MEDS: ENOXAPARIN INJ 40 MG/0.4 ML SYR SQ SCH (08:17)
[2021-09-06] MEDS: NICOTINE 21 MG/24 HR TDSY TD SCH (08:17)
[2021-09-06] MEDS: FOLIC ACID 1 MG TAB PO SCH (08:18)
[2021-09-06] MEDS: THIAMINE HCL 100 MG TAB PO SCH (08:18)
[2021-09-06 09:52] LABS: Hematocrit (blood only) 38.6 % (42-52); Mean Corpuscular Hgb Conc 33.7 g/dL (32-36); Mean Corpuscular Volume 121.8 fL (80-100); Mean Platelet Volume 12.1 fL (7.4-10.4); Platelet Count 129 K/uL (130-400); RDW Standard Deviation 62.6 fL (36.4-46.3); Red Blood Count 3.17 M/uL (4.7-6.1); White Blood Count 5.65 K/uL (4.8-10.8)
[2021-09-06 09:53] LABS: Platelet Estimate Decreased (Normal)
[2021-09-06 10:08] LABS: Albumin Globulin Ratio 0.3 (0.9-2); Albumin Level 1.4 gm/dl (3.4-5.0); BUN Creatinine Ratio 15.2 (10-20); Bilirubin,Total 2.4 mg/dl (0.2-1); Calcium 8.2 mg/dl (8.5-10.1); Creatinine Clr Calc Pharmacy 115.9 ml/min; Est GFR (African American) 117.8 ml/min; Est GFR (Non-African American) 101.7 ml/min; Globulin 4.7 gm/dl (2.5-4.0); Magnesium 2.1 mg/dl (1.8-2.4); Phosphorus 2.6 mg/dl (2.5-4.9); Potassium 4.6 mmol/L (3.5-5.1); Total Protein 6.1 gm/dl (6.4-8.2)
--- NOTE | 2021-09-06 22:15 | Hospitalist Progress Note ---
Date of Service September 06, 2021 Assessment & Plan (1) Alcohol abuse: Plan: Only reports drinking ~4 drinks/day, but I do suspect that it could be more given his falls throughout the day. RUQ u/s on 09/02 showed hepatic steatosis. - No major withdrawal symptoms. He only needed a single dose of Ativan. - Gave thiamine IV TID x 2 days, then switch to PO to avoid Wernicke's - Supplement folate as well given low level - Encourage CM and rehab. (2) Alcoholic hepatitis: Plan: AST/ALT only 115/43. Tbili 3.2. INR 1.3. Maddrey's DF is only 8 on admission. - Monitor; no role for steroids at present. Improving. (3) Failure to thrive: Plan: Due to malnutrition and drinking. Lumbar MRI on 09/02 did not show any acute process. - PT/OT -> Plan for rehab. Patient willing today. (4) Depression: Plan: Depressed over loss of job. - Consider SSRI if patient willing - Encourage outpatient therapy/counseling/AA (5) Urinary retention: Plan: On medical hx list. - Monitor (6) DVT prophylaxis: Plan: Lovenox 40 mg SQ daily Admission and Anticipated Discharge Date Admission Date: September 02, 2021 Subjective Patient reports no new symptoms. Review of Systems Review of Systems: All systems reviewed & are unremarkable except as noted in HPI & below Physical Exam Physical Exam: Constitutional: WD/WN, vitals as above + thin Eyes: EOM intact bilaterally; no conjunctival abnormality ENMT: external ear and nose normal, oropharynx normal Neck: trachea midline, no thyromegaly normal visual inspection Respiratory: normal respiratory effort, lungs clear to auscultation no respiratory distress Cardiovascular: RRR, no murmur, no edema Gastrointestinal (Abdomen): Inspection/Auscultation: abdomen normal to inspection; abdomen not distended Musculoskeletal: no cyanosis or clubbing, extremities motor strength 5/5 Skin: no rashes, warm and dry Neurologic: moves all extremities and awake Psychiatric: Orientation: alert, oriented to person and cooperative Results & Data Results & Data ([facility]) Vital Signs (Past 12 Hours) Vital Signs Temp Pulse Resp BP Pulse Ox 09/06/21 14:55 36.4 C L 92 H 17 115/75 97 PG Care Time/CCT Total # of Minutes Spent Total Time Spent with Patient: Total time spent is greater than 50% in coordination of care (as documented) at patient's floor/unit and/or counseling patient: Coding Level of Care Code 06063 Subseq Hosp Care Lvl 2 Diagnoses Alcohol abuse F10.10 Alcoholic hepatitis K70.10 Failure to thrive Depression F32.9 Urinary retention R33.9 DVT prophylaxis Z29.9
[2021-09-07] MEDS: THIAMINE HCL 100 MG TAB PO SCH (09:11)
[2021-09-07] MEDS: FOLIC ACID 1 MG TAB PO SCH (09:11)
[2021-09-07] MEDS: ENOXAPARIN INJ 40 MG/0.4 ML SYR SQ SCH ×2 (09:12→09:52)
[2021-09-07] MEDS: NICOTINE 21 MG/24 HR TDSY TD SCH (09:12)
--- NOTE | 2021-09-07 21:02 | Hospitalist Progress Note ---
Date of Service September 07, 2021 Assessment & Plan (1) Alcohol abuse: Plan: Only reports drinking ~4 drinks/day, but I do suspect that it could be more given his falls throughout the day. RUQ u/s on 09/02 showed hepatic steatosis. - No major withdrawal symptoms. He only needed a single dose of Ativan. - Gave thiamine IV TID x 2 days, then switched to PO to avoid Wernicke's - Supplement folate as well given low level - Encourage CM and rehab. (2) Alcoholic hepatitis: Plan: AST/ALT only 115/43. Tbili 3.2. INR 1.3. Maddrey's DF is only 8 on admission. - Monitor; no role for steroids at present. Improving. (3) Failure to thrive: Plan: Due to malnutrition and drinking. Lumbar MRI on 09/02 did not show any acute process. - PT/OT -> Plan for rehab. Patient willing today. (4) Depression: Plan: Depressed over loss of job. - Consider SSRI if patient willing - Encourage outpatient therapy/counseling/AA (5) Urinary retention: Plan: On medical hx list. - Monitor (6) DVT prophylaxis: Plan: Lovenox 40 mg SQ daily Admission and Anticipated Discharge Date Admission Date: September 02, 2021 Subjective 56 yo m reports no new symptoms. Review of Systems Review of Systems: All systems reviewed & are unremarkable except as noted in HPI & below Physical Exam Physical Exam: Constitutional: WD/WN, vitals as above + thin Eyes: EOM intact bilaterally; no conjunctival abnormality ENMT: external ear and nose normal, oropharynx normal Neck: trachea midline, no thyromegaly normal visual inspection Respiratory: normal respiratory effort, lungs clear to auscultation no respiratory distress Cardiovascular: RRR, no murmur, no edema Gastrointestinal (Abdomen): Inspection/Auscultation: abdomen normal to inspection; abdomen not distended Musculoskeletal: no cyanosis or clubbing, extremities motor strength 5/5 Skin: no rashes, warm and dry Neurologic: moves all extremities and awake Psychiatric: Orientation: alert, oriented to person and cooperative Results & Data Results & Data ([facility]) Vital Signs (Past 12 Hours) Vital Signs Temp Pulse Resp BP Pulse Ox 09/07/21 15:41 36.4 C L 85 18 138/88 95 PG Care Time/CCT Total # of Minutes Spent Total Time Spent with Patient: Total time spent is greater than 50% in coordination of care (as documented) at patient's floor/unit and/or counseling patient: Coding Level of Care Code 50279 Subseq Hosp Care Lvl 1 Diagnoses Alcohol abuse F10.10 Alcoholic hepatitis K70.10 Failure to thrive Depression F32.9 Urinary retention R33.9 DVT prophylaxis Z29.9
[2021-09-07] MEDS: ACETAMINOPHEN 325 MG TAB PO PRN (22:48)
[2021-09-08] MEDS: ALUMINUM/MAGNESIUM SUSP 30 ML UDC PO PRN ×2 (00:15→16:07)
[2021-09-08] MEDS: NICOTINE 21 MG/24 HR TDSY TD SCH (09:04)
[2021-09-08] MEDS: THIAMINE HCL 100 MG TAB PO SCH (09:05)
[2021-09-08] MEDS: ENOXAPARIN INJ 40 MG/0.4 ML SYR SQ SCH (09:05)
[2021-09-08] MEDS: FOLIC ACID 1 MG TAB PO SCH (09:05)
[2021-09-08 09:30] LABS: Hematocrit (blood only) 39.5 % (42-52); Mean Corpuscular Hgb Conc 32.9 g/dL (32-36); Mean Corpuscular Volume 121.5 fL (80-100); Mean Platelet Volume 11.5 fL (7.4-10.4); Platelet Count 140 K/uL (130-400); RDW Coefficient of Variation 13.9 % (11.5-14.5); RDW Standard Deviation 62.4 fL (36.4-46.3); Red Blood Count 3.25 M/uL (4.7-6.1); White Blood Count 5.08 K/uL (4.8-10.8)
[2021-09-08 10:00] LABS: Albumin Globulin Ratio 0.3 (0.9-2); Albumin Level 1.6 gm/dl (3.4-5.0); BUN Creatinine Ratio 15.6 (10-20); Bilirubin,Total 1.9 mg/dl (0.2-1); Calcium 8.4 mg/dl (8.5-10.1); Creatinine Clr Calc Pharmacy 114.3 ml/min; Est GFR (African American) 117.2 ml/min; Est GFR (Non-African American) 101.1 ml/min; Globulin 4.6 gm/dl (2.5-4.0); Potassium 3.9 mmol/L (3.5-5.1); Total Protein 6.2 gm/dl (6.4-8.2)
--- NOTE | 2021-09-08 22:53 | Hospitalist Progress Note ---
Date of Service September 08, 2021 Assessment & Plan (1) Alcohol abuse: Plan: Only reports drinking ~4 drinks/day, but I do suspect that it could be more given his falls throughout the day. RUQ u/s on 09/02 showed hepatic steatosis. - No major withdrawal symptoms. He only needed a single dose of Ativan. - Gave thiamine IV TID x 2 days, then switched to PO to avoid Wernicke's - Supplement folate as well given low level - Encourage CM and rehab. (2) Alcoholic hepatitis: Plan: AST/ALT only 115/43. Tbili 3.2. INR 1.3. Maddrey's DF is only 8 on admission. - Monitor; no role for steroids at present. Improving. (3) Failure to thrive: Plan: Due to malnutrition and drinking. Lumbar MRI on 09/02 did not show any acute process. - PT/OT -> Plan for rehab. Patient willing today. (4) Depression: Plan: Depressed over loss of job. - Consider SSRI if patient willing - Encourage outpatient therapy/counseling/AA (5) Urinary retention: Plan: On medical hx list. - Monitor (6) DVT prophylaxis: Plan: Lovenox 40 mg SQ daily Admission and Anticipated Discharge Date Admission Date: September 02, 2021 Subjective 56 yo male is reports no new symptoms. Review of Systems Review of Systems: All systems reviewed & are unremarkable except as noted in HPI & below Physical Exam Physical Exam: Constitutional: WD/WN, vitals as above + thin Eyes: EOM intact bilaterally; no conjunctival abnormality ENMT: external ear and nose normal, oropharynx normal Neck: trachea midline, no thyromegaly normal visual inspection Respiratory: normal respiratory effort, lungs clear to auscultation no respiratory distress Cardiovascular: RRR, no murmur, no edema Gastrointestinal (Abdomen): Inspection/Auscultation: abdomen normal to inspection; abdomen not distended Musculoskeletal: no cyanosis or clubbing, extremities motor strength 5/5 Skin: no rashes, warm and dry Neurologic: moves all extremities and awake Psychiatric: Orientation: alert, oriented to person and cooperative Results & Data Results & Data ([facility]) Vital Signs (Past 12 Hours) Vital Signs Temp Pulse Resp BP Pulse Ox 09/08/21 18:35 130/83 09/08/21 17:57 36.3 C L 93 H 18 141/91 H 97 PG Care Time/CCT Total # of Minutes Spent Total Time Spent with Patient: Total time spent is greater than 50% in coordination of care (as documented) at patient's floor/unit and/or counseling patient: Coding Level of Care Code 95260 Subseq Hosp Care Lvl 1 Diagnoses Alcohol abuse F10.10 Alcoholic hepatitis K70.10 Failure to thrive Depression F32.9 Urinary retention R33.9 DVT prophylaxis Z29.9
[2021-09-09] MEDS: ENOXAPARIN INJ 40 MG/0.4 ML SYR SQ SCH (08:45)
[2021-09-09] MEDS: NICOTINE 21 MG/24 HR TDSY TD SCH (08:46)
[2021-09-09] MEDS: THIAMINE HCL 100 MG TAB PO SCH (08:46)
[2021-09-09] MEDS: FOLIC ACID 1 MG TAB PO SCH (08:46)
[2021-09-11 09:56] LABS: Hepatitis C Vira RNA (Log) PCR 3.96 Log IU/mL (NOT DETECTED)
--- NOTE | 2021-09-12 21:12 | Discharge Summary ---
Date of Service September 09, 2021 Admission HPI Per Admitting Provider 56yo M w/ hx of [facility] [place] who presents with failure to thrive and falls due to alcohol use. He reports he lost his job about 6 months ago and has been eating less and drinking more over that time. He and family report poor PO intake as well as increased alcohol use. He reports he drinks 2 "[employer]" beers per day which would be equivalent to ~4 alcoholic beverages (larger cans and ABV ~8%). Over the last few weeks, his falls have been worse, and he fell at least 3 times yesterday with one time striking his head. He has also been losing weight at home. He was brought in by family for evaluation for failure to thrive. He reports about 1 year prior he went through alcohol detox. He reports he "was told" he had a seizure at that time, but does not recall it. He reports his last drink was 3 days ago and denies any present withdrawal symptoms. He denies other substance use. Principal Diagnosis Alcohol abuse Discharge Exam Constitutional: WD/WN, vitals as above + thin Eyes: EOM intact bilaterally; no conjunctival abnormality ENMT: external ear and nose normal, oropharynx normal Neck: trachea midline, no thyromegaly normal visual inspection Respiratory: normal respiratory effort, lungs clear to auscultation no respiratory distress Cardiovascular: RRR, no murmur, no edema Gastrointestinal (Abdomen): Inspection/Auscultation: abdomen normal to inspection; abdomen not distended Musculoskeletal: no cyanosis or clubbing, extremities motor strength 5/5 Skin: no rashes, warm and dry Neurologic: moves all extremities and awake Psychiatric: Orientation: alert, oriented to person and cooperative Discharge Data Allergies Allergy/AdvReac Type Severity Reaction Status Date / Time No Known Allergies Allergy Verified 09/02/21 00:01 Consultations 09/02/21 07:23 ED Decision to Admit Stat Ordered Studies 09/01/21 23:28 CT abd pelvis IV con only Urgent CT cervical spine wo con Urgent CT head/brain wo con Urgent CT lumbar spine w con Urgent 09/02/21 04:10 MR lumbar spine wo con Stat 09/02/21 07:26 US abdomen limited Urgent Hospital Course (1) Alcohol abuse: Only reports drinking ~4 drinks/day, but I do suspect that it could be more given his falls throughout the day. RUQ u/s on 09/02 showed hepatic steatosis. - No major withdrawal symptoms. He only needed a single dose of Ativan. - Gave thiamine IV TID x 2 days, then switched to PO to avoid Wernicke's - Supplement folate as well given low level - Encourage CM and rehab. Patient refusing alcohol rehab. Patient wants to be discharged home, as patient refuses alcohol rehab and cannot go to (regular) rehab due to lack of insurance, and patient does not want to pay out of pocket. Patient will be discharged home. Information of alcohol support systems given to patient. (2) Alcoholic hepatitis: AST/ALT only 115/43. Tbili 3.2. INR 1.3. Maddrey's DF is only 8 on admission. - Monitor; no role for steroids at present. Improving. (3) Failure to thrive: Due to malnutrition and drinking. Lumbar MRI on 09/02 did not show any acute process. - PT/OT -> Plan for rehab. Patient willing today. (4) Depression: Depressed over loss of job. - Consider SSRI if patient willing - Encourage outpatient therapy/counseling/AA (5) Urinary retention: On medical hx list. - Monitor (6) DVT prophylaxis: Lovenox 40 mg SQ daily Total Time Total Time Spent Total Time Spent (In Minutes): 32 Discharge Plan Discharge Items Patient Disposition: Home - Self-Care Reason For Visit: WEAKNESS Discharge Diagnosis: al Condition on Discharge: Fair Activity: Resume your previous activity Non-emergency contact: Primary Care Provider Call non-emergency contact if: you have any medication questions Follow-up/Referrals: PCP,NO [Primary Care Provider] - (MANNY REID WILL SET UP APPT A NEW PATIENT WITH [facility] PROVIDERS; THE PATIENT HAS REQUESTED.) Diet: Regular Addtl Attending Provider Instructions: Please followup with PCP in 1-2 weeks. Please limit alcohol intake. Alcohol rehabs and education on quitting was provided to you while you were here. Pending Studies at Discharge: No Stand-Alone Forms: My [employer], Smoking Cessation Medications and DC Order Prescriptions: New thiamine HCl (vitamin B1) [Vitamin B-1] 100 mg Tablet 100 mg PO QAM Qty: 30 RF: 0 nicotine [Nicoderm CQ] 21 mg/24 hr Patch 24 Hour 21 mg transdermal QAM Qty: 30 RF: 0 folic acid 1 mg Tablet 1 mg PO QAM Qty: 30 RF: 0 Discharge Orders: Discharge Order (Routine); Ordered 09/09/21 Ordered By: Esvin Tobias Admission Data Admit Date/Time: 09/02/21 07:24 Attending Provider: Esvin Tobias Admit Provider: Marcio Reid Primary Care Provider: PCP,NO Other Providers: Marcio Reid ; [facility] Other Interventions: Discharge Summary Assessment (RN) Last Done: 09/09/21 13:20 Coding Level of Care Code D/C DAY MANAGEMENT >30 MINS Diagnoses Alcohol abuse F10.10 Alcoholic hepatitis K70.10 Failure to thrive Depression F32.9 Urinary retention R33.9 DVT prophylaxis Z29.9
== END 2021-09-09 15:55 | disposition home or self-care (01) | DRG 897 ==
LOC: ED 22:22 → SUATTDRO 09-02 07:24 → 3N 09-02 07:24

== ENCOUNTER 2022-01-25 15:41 | Inpatient (IN) ==
[~2022-01-25 15:41] MED LIST: FOLIC ACID 1 MG TAB PO SCH
[2022-01-25] MEDS ORDERED: FAMOTIDINE 20MG IV PUSH 20 MG/5 ML SYR IV STA (16:14)
[2022-01-25] MEDS ORDERED: THIAMINE HCL 200 MG in SODIUM CHLORIDE 0.9% 50 ML IV STA (16:14)
[2022-01-25] MEDS ORDERED: PANTOprazole 40 MG in SYRINGE 0 ML IV ONE (16:14)
[2022-01-25] MEDS ORDERED: SODIUM CHLORIDE 0.9% 500 ML IV STA (16:14)
--- NOTE | 2022-01-25 16:21 | Emergency Department Note ---
Impression & Plan Chest pain, Esophagitis, Acute upper gastrointestinal bleeding, Abdominal ascites ED Provider Note NAME: MUSTAPHA GARCES AGE: 56 SEX: M : 1965 ARRIVES VIA: Walk-In INFORMANT: Patient, ED PROVIDER(S): Gonzalo Bates DO CHIEF COMPLAINT: Chest pain HPI: The patient is a 56-year-old male who has a history of chronic alcohol abuse who presented to the emergency department for an evaluation of chest pain nausea and vomiting. The patient states he started having symptoms over the last few days. He has a history of alcoholic hepatitis and is noticed that his abdomen is becoming very distended. He denies having any fever. He has had no black or bloody bowel movements. He has noticed that his abdomen is very swolle n and he has noticed swelling in his legs. He has been having shortness of breath especially with exertion. He denies having any fever. He has no changes to his medications. He tried to see his family doctor but was unable to get an appointment so he came to the emergency department today. He states he has not had an alcoholic drink in over a month. ROS: See above HPI for pertinent positives & negatives. A total of 10 systems reviewed and were otherwise negative. PAST MEDICAL HISTORY: See Below PAST SURGICAL HISTORY: See Below FAMILY HISTORY: See Below SOCIAL HISTORY: See Below HOME MEDICATIONS: See Below ALLERGIES: See Below VITALS: See Below PHYSICAL EXAMINATION: GENERAL: Patient is awake and alert. He is somewhat anxious appearing. EYES: The conjunctivae are clear. The pupils are round and reactive. EARS, NOSE, MOUTH AND THROAT: The nose is without any evidence of any deformity. Mucous members are dry. NECK: The neck is nontender and supple. RESPIRATORY: Diminished breath sounds are noted at both bases. There is mild tachypnea. CARDIOVASCULAR: Tachycardic rate with regular rhythm was noted. There is no definite murmur. GASTROINTESTINAL: The abdomen was very distended and diffusely tender. MUSCULOSKELETAL/EXTREMITIES: There is no evidence of gross deformity full range of motion is noted in the hips and shoulders. SKIN: Skin is warm and dry. Pedal edema is noted bilaterally. NEUROLOGIC: Patient is awake alert and oriented x3. MEDICAL DECISION MAKING: The patient is a 56-year-old male who presented to the emergency department for an evaluation of chest pain. The patient was having episodes of emesis. The patient does have a history of chronic alcohol use but he is not use any alcohol in approximately a month. He started noticing abdominal distention and appears to have significant ascites on physical exam as well as radiographic studies. I discussed patient's laboratory and radiographic studies with him. He appears to have some signs of esophagitis noted on CT. Because of his tachycardia it is possible this represents an early mediastinitis so the patient was treated with IV antibiotics. I discussed his condition with the on-call [facility] hospitalist. They have agreed to evaluate the patient in the emergency department for further management and disposition. Triage Nursing notes reviewed. Prior medical records reviewed Vital Signs: reviewed and remarkable for tachycardia. Differential diagnosis: Gastroenteritis, food borne illness, infections, appendicitis, diverticulitis, inflammatory bowel disease, obstruction, GI bleed, biliary pathology, volvulus, as well as other pathologies. ER treatment provided: See below Diagnostics interpreted by me: ECG: EKG was obtained in the emergency department. My interpretation is sinus tachycardia 113 bpm. Anterior and inferior Q waves are noted. Poor R wave progression was noted. Low voltage was noted throughout. This was compared to a tracing from August 29, 2021. EKG changes are new compared to previous tracing. Cardiac Monitoring: An order was placed for continuous cardiac monitoring. The monitor shows a rate of 118 bpm with sinus tachycardia. Laboratory studies: As stated above and show below. Imaging studies: See below Consultation(s): I discussed this case with Dr. Gaspar who is on-call for the [facility]. Past Med/Surg History Medical History (Updated 01/26/22 @ 08:49 by RHEA Vieyra) Abnormal LFTs Alcohol abuse Alcoholic hepatitis Back pain Depression Failure to thrive Reflux esophagitis Seizure Urinary retention Surgical History H/O rotator cuff surgery Family History Mother Diabetes Father Diabetes Social History Smoking Status: Current every day smoker Tobacco Type: Cigarettes Hx Alcohol Use: Yes Alcohol type: beer Alcohol Intake Frequency: 4 or More x per/Week Alcohol Intake Frequency Comment: 6 pack per day Hx Substance Use: No Preferred Language: Indonesian Communication Ability: Effective Manager Community Outreach Required: No Beliefs That Will Affect Care: None Current Living Situation: Family Other Information That Helps Us Care for You: No Feels Safe at Home: Yes Safety Concerns: Feels Safe At This Time Assistive Devices: None Allergies Allergies Allergy/AdvReac Type Severity Reaction Status Date / Time No Known Allergies Allergy Verified 01/25/22 16:26 Home Meds Home Medications Medication Instructions Recorded Confirmed No Known Home Medications 01/25/22 01/25/22 Results & Data (ED) Vital Signs Vital Signs - 24 hr 01/25/22 15:43 01/25/22 16:14 01/25/22 18:00 Temperature 37.0 C Temperature Source Temporal Artery Scan Pulse Rate 128 H 120 H Pulse Rate [Apical] 110 H 118 H Pulse Rhythm [Apical] Regular Pulse Strength [Apical] Normal Respiratory Rate 20 22 20 Respiratory Effort / Characteristics Non-Labored Spontaneous Respiratory Depth Normal Normal Respiratory Pattern Regular Blood Pressure 137/103 H Blood Pressure [Right Arm] 124/81 125/75 Blood Pressure Mean 114 Blood Pressure Mean [Right Arm] 95 91 Blood Pressure Position Sitting Pulse Oximetry 96 98 98 Oxygen Delivery Method Room Air Room Air Room Air Fraction of Inspired Oxygen 96 Sepsis Recent Fever Within 48 Hours No Sepsis New/Unexplained Change in Mental Status No Sepsis Action Taken by Nursing No Action Required Home Medications Current Medication List: was personally reviewed by me Laboratory Data Attestation: I reviewed the patient's lab results. Result diagrams: 01/27/22 07:02 01/27/22 07:02 Lab Results 01/25/22 01/25/22 01/25/22 Range/Units 16:50 16:50 16:50 WBC 12.55 H (4.8-10.8) K/uL RBC 4.27 L (4.7-6.1) M/uL Hgb 14.4 (14.0-18.0) g/dL Hct 42.9 (42-52) % MCV 100.5 H (80-100) fL MCH 33.7 (25-34) pg MCHC 33.6 (32-36) g/dL RDW Std Deviation 52.8 H (36.4-46.3) fL RDW Coeff of Chrissy 14.5 (11.5-14.5) % Plt Count 350 (130-400) K/uL MPV 10.8 H (7.4-10.4) fL Immature Gran % (Auto) 0.2 % Neut % (Auto) 78.0 % Lymph % (Auto) 9.6 % Glades % (Auto) 11.6 % Eos % (Auto) 0.4 % Baso % (Auto) 0.2 % Neut # (Auto) 9.79 H (1.4-6.5) K/uL Lymph # (Auto) 1.21 (1.2-3.4) K/uL Glades # (Auto) 1.45 H (0.11-0.59) K/uL Eos # (Auto) 0.05 (0-0.5) K/uL Baso # (Auto) 0.03 (0-0.2) K/uL Immature Gran # (Auto) 0.02 (0.00-0.02) K/uL PT 12.2 H (9.0-12.0) Seconds INR 1.2 H (0.9-1.1) APTT 24.5 (21.0-31.0) Seconds PTT Ratio 0.9 Sodium 139 (136-145) mmol/L Potassium TNP Chloride 104 (98-107) mmol/L Carbon Dioxide 23 (21-32) mmol/L Anion Gap 12 H (3-11) BUN 6 (6-23) mg/dl Creatinine 0.68 (0.6-1.4) mg/dl Est Cr Clr Drug Dosing 126.1 ml/min Est GFR ( Amer) 122.0 ml/min Est GFR (Non-Af Amer) 105.3 ml/min BUN/Creatinine Ratio 8.8 L (10-20) Glucose 118 H (70-99(Fasting)) mg/dl Calcium 8.8 (8.5-10.1) mg/dl Total Bilirubin 1.2 H (0.2-1.0) mg/dl Direct Bilirubin TNP AST TNP ALT 11 (7-52) U/L Alkaline Phosphatase 61 (34-104) U/L Troponin I High Sens 5.6 (0-20) pg/ml Total Protein 7.7 (6.0-8.3) gm/dl Albumin 2.5 L (3.4-5.0) gm/dl Globulin 5.2 H (2.5-4.0) gm/dl Albumin/Globulin Ratio 0.5 L (0.9-2) Lipase 36 (11-82) U/L Ethyl Alcohol mg/dL (<10.0) mg/dl SARS-CoV-2, RNA, NAAT (NEGATIVE) 01/25/22 01/25/22 01/25/22 Range/Units 17:21 17:21 20:31 WBC (4.8-10.8) K/uL RBC (4.7-6.1) M/uL Hgb (14.0-18.0) g/dL Hct (42-52) % MCV (80-100) fL MCH (25-34) pg MCHC (32-36) g/dL RDW Std Deviation (36.4-46.3) fL RDW Coeff of Chrissy (11.5-14.5) % Plt Count (130-400) K/uL MPV (7.4-10.4) fL Immature Gran % (Auto) % Neut % (Auto) % Lymph % (Auto) % Glades % (Auto) % Eos % (Auto) % Baso % (Auto) % Neut # (Auto) (1.4-6.5) K/uL Lymph # (Auto) (1.2-3.4) K/uL Glades # (Auto) (0.11-0.59) K/uL Eos # (Auto) (0-0.5) K/uL Baso # (Auto) (0-0.2) K/uL Immature Gran # (Auto) (0.00-0.02) K/uL PT (9.0-12.0) Seconds INR (0.9-1.1) APTT (21.0-31.0) Seconds PTT Ratio Sodium (136-145) mmol/L Potassium 3.2 L Chloride (98-107) mmol/L Carbon Dioxide (21-32) mmol/L Anion Gap (3-11) BUN (6-23) mg/dl Creatinine (0.6-1.4) mg/dl Est Cr Clr Drug Dosing ml/min Est GFR ( Amer) ml/min Est GFR (Non-Af Amer) ml/min BUN/Creatinine Ratio (10-20) Glucose (70-99(Fasting)) mg/dl Calcium (8.5-10.1) mg/dl Total Bilirubin (0.2-1.0) mg/dl Direct Bilirubin 0.4 H AST 24 ALT (7-52) U/L Alkaline Phosphatase (34-104) U/L Troponin I High Sens (0-20) pg/ml Total Protein (6.0-8.3) gm/dl Albumin (3.4-5.0) gm/dl Globulin (2.5-4.0) gm/dl Albumin/Globulin Ratio (0.9-2) Lipase (11-82) U/L Ethyl Alcohol mg/dL < 10.0 (<10.0) mg/dl SARS-CoV-2, RNA, NAAT NEGATIVE (NEGATIVE) Administered Medications Al Hydrox/Mg Hydrox/Simethicone (Aluminum/Magnesium/Simeth (Maalox Max) 30 Ml Udc) 30 ml PO Q6H PRN PRN Reason: severe heartburn Stop: 02/24/22 22:43 Last Admin: 01/25/22 23:03 Dose: 30 ml Documented by: [id number] Folic Acid (Folic Acid 1 Mg Tab) 1 mg PO [facility] Stop: 02/24/22 22:59 Last Admin: 01/27/22 12:30 Dose: 1 mg Documented by: [id number] Admin: 01/26/22 10:42 Dose: 1 mg Documented by: [id number] Admin: 01/26/22 00:10 Dose: 1 mg Documented by: [id number] Furosemide (Furosemide 40 Mg Tab) 40 mg PO [facility] Stop: 02/26/22 08:59 Last Admin: 01/27/22 12:31 Dose: 40 mg Documented by: [id number] Ceftriaxone Sodium 1,000 mg/ (Dextrose) 50 mls @ 100 mls/hr IV Q24H [facility]; Protocol Stop: 02/05/22 00:00 Last Infusion: 01/27/22 23:58 Dose: 0 mls/hr Documented by: [id number] Admin: 01/27/22 23:25 Dose: 100 mls/hr Documented by: [id number] Infusion: 01/27/22 03:05 Dose: 0 mls/hr Documented by: [id number] Admin: 01/27/22 02:32 Dose: 100 mls/hr Documented by: [id number] Infusion: 01/25/22 23:27 Dose: 0 mls/hr Documented by: [id number] Admin: 01/25/22 23:00 Dose: 100 mls/hr Documented by: [id number] Melatonin (Melatonin 3 Mg Tab) 3 mg PO HS PRN PRN Reason: Sleep Stop: 02/25/22 20:00 Last Admin: 01/26/22 21:29 Dose: 3 mg Documented by: [id number] Miscellaneous (Remove Nicoderm Patch) 1 ea N/A DAILY@[id number] [facility] Stop: 02/25/22 08:58 Last Admin: 01/27/22 08:16 Dose: 1 ea Documented by: [id number] Admin: 01/26/22 10:42 Dose: Not Given Documented by: [id number] Nicotine (Nicotine 21 Mg/24 Hr Tdsy) 21 mg TD QAM [facility] Stop: 02/25/22 08:59 Last Admin: 01/27/22 08:16 Dose: Not Given Documented by: [id number] Admin: 01/26/22 10:43 Dose: 21 mg Documented by: [id number] Ondansetron HCl (Ondansetron Inj 2 Mg/Ml 2 Ml Vial) 4 mg IV Q6H PRN PRN Reason: Nausea Stop: 02/24/22 21:55 Last Admin: 01/25/22 23:28 Dose: 4 mg Documented by: [id number] Pantoprazole Sodium (Pantoprazole 40 Mg Tab) 40 mg PO BID [facility] Stop: 02/26/22 08:59 Last Admin: 01/27/22 19:50 Dose: 40 mg Documented by: [id number] Admin: 01/27/22 12:30 Dose: 40 mg Documented by: [id number] Propranolol HCl (Propranolol Hcl 20 Mg Tab) 20 mg PO BID [facility] Stop: 02/24/22 22:59 Last Admin: 01/27/22 19:50 Dose: 20 mg Documented by: [id number] Admin: 01/27/22 12:31 Dose: 20 mg Documented by: [id number] Admin: 01/26/22 20:08 Dose: Not Given Documented by: [id number] Admin: 01/26/22 10:45 Dose: Not Given Documented by: [id number] Admin: 01/26/22 00:09 Dose: 20 mg Documented by: [id number] Saccharomyces Boulardii (Saccharomyces Boulardii 250 Mg Cap) 250 mg PO BID [facility] Stop: 02/26/22 20:59 Last Admin: 01/27/22 21:27 Dose: 250 mg Documented by: [id number] Spironolactone (Spironolactone 100 Mg Tab) 100 mg PO [facility] Stop: 02/26/22 08:59 Last Admin: 01/27/22 12:31 Dose: 100 mg Documented by: [id number] Thiamine HCl (Thiamine Hcl 100 Mg Tab) [facility] Stop: 02/24/22 22:59 Last Admin: 01/27/22 12:30 Dose: 100 mg Documented by: [id number] Admin: 01/26/22 10:45 Dose: 100 mg Documented by: [id number] Admin: 01/26/22 00:09 Dose: 100 mg Documented by: [id number] Discontinued Medications Al Hydrox/Mg Hydrox/Simethicone (Aluminum/Magnesium Susp 30 Ml Udc) 30 ml PO NOW STA Stop: 01/25/22 20:22 Last Admin: 01/25/22 20:31 Dose: 30 ml Documented by: [id number] Glycopyrrolate (Glycopyrrolate 0.2 Mg/Ml Vial) Confirm Administered Dose 0.4 mg .ROUTE .STK-MED ONE Stop: 01/27/22 10:58 Last Admin: 01/27/22 12:12 Dose: Not Given Documented by: [id number] Sodium Chloride (Nss) 500 mls @ 999 mls/hr IV .Q31M STA Stop: 01/25/22 16:44 Last Infusion: 01/25/22 17:53 Dose: 0 mls/hr Documented by: [id number] Admin: 01/25/22 17:25 Dose: 999 mls/hr Documented by: [id number] Pantoprazole Sodium 40 mg/ (Syringe) 10 mls @ 5 mls/min IV NOW ONE Stop: 01/25/22 16:15 Last Admin: 01/25/22 17:37 Dose: 5 mls/min Documented by: [id number] Famotidine (Pepcid 20mg Iv Push) 20 mg in 5 mls @ 2.5 mls/min IV NOW STA Stop: 01/25/22 16:15 Last Admin: 01/25/22 17:24 Dose: 2.5 mls/min Documented by: [id number] Thiamine HCl 200 mg/ Sodium (Chloride) 52 mls @ 208 mls/hr IV NOW STA Stop: 01/25/22 16:15 Last Infusion: 04/19/22 17:53 Dose: 0 mls/hr Documented by: [id number] Admin: 01/25/22 17:37 Dose: 208 mls/hr Documented by: [id number] Piperacillin Sod/Tazobactam Sod (Zosyn) 4.5 gm in 120 mls @ 240 mls/hr IV NOW ONE Stop: 01/25/22 20:50 Last Infusion: 01/25/22 21:12 Dose: 0 mls/hr Documented by: [id number] Admin: 01/25/22 20:31 Dose: 240 mls/hr Documented by: [id number] Pantoprazole Sodium 40 mg/ (Dextrose) 100 mls @ 20 mls/hr IV Q5H [facility] Stop: 02/24/22 22:59 Last Infusion: 01/27/22 01:03 Dose: 0 mg/hr, 0 mls/hr Documented by: [id number] Admin: 01/26/22 23:41 Dose: 8 mg/hr, 20 mls/hr Documented by: [id number] Infusion: 01/26/22 23:41 Dose: 8 mg/hr, 20 mls/hr Documented by: [id number] Admin: 01/26/22 19:15 Dose: 8 mg/hr, 20 mls/hr Documented by: [id number] Infusion: 01/26/22 18:57 Dose: 8 mg/hr, 20 mls/hr Documented by: [id number] Admin: 01/26/22 13:57 Dose: 8 mg/hr, 20 mls/hr Documented by: [id number] Infusion: 01/26/22 13:11 Dose: 8 mg/hr, 20 mls/hr Documented by: [id number] Admin: 01/26/22 08:11 Dose: 8 mg/hr, 20 mls/hr Documented by: [id number] Infusion: 01/26/22 08:11 Dose: 8 mg/hr, 20 mls/hr Documented by: [id number] Admin: 01/26/22 03:44 Dose: 8 mg/hr, 20 mls/hr Documented by: [id number] Infusion: 01/26/22 03:44 Dose: 8 mg/hr, 20 mls/hr Documented by: [id number] Admin: 01/25/22 23:42 Dose: 8 mg/hr, 20 mls/hr Documented by: [id number] Octreotide Acetate 500 mcg/ (Dextrose) 100.5 mls @ 10.05 mls/hr IV .Q10H [facility] Stop: 02/24/22 23:14 Last Infusion: 01/27/22 01:03 Dose: 0 mcg/hr, 0 mls/hr Documented by: [id number] Admin: 01/26/22 19:43 Dose: 50 mcg/hr, 10.1 mls/hr Documented by: [id number] Infusion: 01/26/22 18:16 Dose: 0 mcg/hr, 0 mls/hr Documented by: [id number] Admin: 01/26/22 08:11 Dose: 50 mcg/hr, 10.1 mls/hr Documented by: [id number] Infusion: 01/26/22 08:11 Dose: 50 mcg/hr, 10.1 mls/hr Documented by: [id number] Admin: 01/25/22 23:33 Dose: 50 mcg/hr, 10.1 mls/hr Documented by: [id number] Sodium Chloride (Nss 1000ml) 500 mls @ 999 mls/hr IV .Q31M ONE Stop: 01/25/22 23:24 Last Infusion: 01/25/22 23:45 Dose: 0 mls/hr Documented by: [id number] Admin: 01/25/22 23:10 Dose: 999 mls/hr Documented by: [id number] Albumin Human (Albumin 25% 100 Ml) 25 gm in 100 mls @ 50 mls/hr IV ONE ONE Stop: 01/26/22 11:29 Last Infusion: 01/26/22 12:50 Dose: 0 mls/hr Documented by: [id number] Admin: 01/26/22 10:50 Dose: 50 mls/hr Documented by: [id number] Albumin Human (Albumin 25% 100 Ml) 25 gm in 100 mls @ 50 mls/hr IV ONE ONE Stop: 01/26/22 17:59 Last Infusion: 01/26/22 19:16 Dose: 0 mls/hr Documented by: [id number] Admin: 01/26/22 17:26 Dose: 50 mls/hr Documented by: [id number] Albumin Human (Albumin 25% 100 Ml) 25 gm in 100 mls @ 50 mls/hr IV ONE ONE Stop: 01/27/22 07:59 Last Infusion: 01/27/22 07:58 Dose: 0 mls/hr Documented by: [id number] Admin: 01/27/22 05:55 Dose: 50 mls/hr Documented by: [id number] Albumin Human (Albumin 25% 100 Ml) 25 gm in 100 mls @ 50 mls/hr IV ONE ONE Stop: 01/27/22 17:29 Last Infusion: 01/27/22 17:26 Dose: 0 mls/hr Documented by: [id number] Admin: 01/27/22 15:12 Dose: 50 mls/hr Documented by: [id number] Albumin Human (Albumin 25% 100 Ml) 25 gm in 100 mls @ 50 mls/hr IV ONE ONE Stop: 01/27/22 01:48 Last Infusion: 01/27/22 02:28 Dose: 0 mls/hr Documented by: [id number] Admin: 01/27/22 00:15 Dose: 50 mls/hr Documented by: [id number] Magnesium Sulfate/Dextrose (Magnesium Sulfate / D5w) 1 gm in 100 mls @ 50 mls/hr IV ONE ONE Stop: 01/27/22 01:49 Last Infusion: 01/27/22 02:28 Dose: 0 mls/hr Documented by: [id number] Admin: 01/27/22 00:15 Dose: 50 mls/hr Documented by: [id number] Lidocaine HCl (Lidocaine 2% 2 Ml Vial/Amp(20mg/Ml)) Confirm Administered Dose 4 ml INFIL .STK-MED ONE Stop: 01/27/22 10:58 Last Admin: 01/27/22 12:12 Dose: Not Given Documented by: [id number] Ondansetron HCl (Ondansetron Inj 2 Mg/Ml 2 Ml Vial) Confirm Administered Dose 4 mg .ROUTE .STK-MED ONE Stop: 01/27/22 10:58 Last Admin: 01/27/22 12:12 Dose: Not Given Documented by: [id number] Phenylephrine HCl (Phenylephrine Hcl 10 Mg/Ml Vial) Confirm Administered Dose 10 mg .ROUTE .STK-MED ONE Stop: 01/27/22 11:12 Last Admin: 01/27/22 12:12 Dose: Not Given Documented by: [id number] Potassium Chloride (Potassium Chloride Crtab 20 Meq Tabcr) 40 meq PO NOW STA Stop: 01/25/22 23:08 Last Admin: 01/26/22 00:09 Dose: 20 meq Documented by: [id number] Potassium Chloride (Potassium Chloride Crtab 20 Meq Tabcr) 40 meq PO NOW STA Stop: 01/26/22 13:20 Last Admin: 01/26/22 13:54 Dose: 40 meq Documented by: [id number] Potassium Chloride (Potassium Chloride Crtab 20 Meq Tabcr) 40 meq PO NOW STA Stop: 01/26/22 23:51 Last Admin: 01/27/22 00:30 Dose: 20 meq Documented by: [id number] Potassium Chloride (Potassium Chloride Crtab 20 Meq Tabcr) 40 meq PO NOW STA Stop: 01/27/22 00:48 Last Admin: 01/27/22 00:59 Dose: Not Given Documented by: [id number] Propofol (Propofol Iv Emulsion 10 Mg/Ml 20 Ml Vial) Confirm Administered Dose 200 mg IV .STK-MED ONE Stop: 01/27/22 10:58 Last Admin: 01/27/22 12:12 Dose: Not Given Documented by: [id number] Imaging Data Radiologist's Impression: Chest X-Ray 01/25/22 16:14 XR chest 1V portable CLINICAL HISTORY: Atypical chest pain. COMPARISON STUDY: Chest radiograph September 01, 2021. FINDINGS: Linear bibasilar opacities favor atelectasis. There is moderate elevation the right hemidiaphragm. No evidence for pulmonary edema or pneumonia. Cardiac size is normal. Mediastinal contours are normal. IMPRESSION: Moderate elevation of the right hemidiaphragm. Bibasilar opacities favor atelectasis. ACT 112: Negative or not required by law. Electronically signed by: William Anderson M.D. 01/25/2022 5:21 PM KUB X-Ray 01/25/22 16:14 KUB CLINICAL HISTORY: Abdominal pain. COMPARISON STUDY: CT of the abdomen and pelvis September 02, 2021. FINDINGS: Single loop of mildly dilated gas-filled small bowel is noted. Abdomen and pelvis is relatively gasless. No urinary calculi are identified. Although suboptimally assessed by radiography, there is possible ascites. IMPRESSION: 1. Single loop of mildly dilated gas-filled small bowel. Although nonspecific, the findings are not highly suggestive of a small bowel obstruction. 2. Possible ascites, suboptimally assessed by radiography. Ultrasound could be obtained. ACT 112: Negative or not required by law. Electronically signed by: William Anderson M.D. 01/25/2022 5:24 PM Abdomen/Pelvis CT 01/25/22 19:09 CT OF THE ABDOMEN AND PELVIS WITHOUT CONTRAST CLINICAL HISTORY: Vomiting. COMPARISON STUDY: CT of the abdomen and pelvis and right upper quadrant ultrasound September 02, 2021. TECHNIQUE: Axial images of the abdomen and pelvis were obtained without IV contrast. Images were reviewed in the axial, sagittal, and coronal planes. Automated exposure control was utilized for the study. A dose lowering technique was utilized adhering to the principles of ALARA. FINDINGS: Please note that the chest CT will be reported separately. Distal esophageal wall thickening with adjacent stranding and fluid is better depicted on that exam. Please see that report for further description. There is moderate elevation the right hemidiaphragm. Evaluation of the abdomen and pelvis is suboptimal on this unenhanced exam. No pneumatosis, free air or portal venous gas is present. The liver is somewhat small. The liver is decreased in size since CT. There may be slight nodularity of the liver surface. Findings suggest cirrhosis. No hepatic lesions are identified although sensitivity is diminished on this unenhanced exam. There is hyperdense material within the gallbladder. No biliary or pancreatic ductal dilatation is present. Size of the spleen is normal. Unenhanced images of the adrenal glands, kidneys and pancreas are unremarkable. No peripancreatic infiltration. Multiple mildly enlarged upper abdominal lymph nodes measure up to 1.5 cm in short axis diameter. These may be related to liver disease. Large volume abdominal and pelvic ascites is noted. No evidence for a bowel obstruction. There is no hydronephrosis. No acute fracture or suspicious lesion is identified within the visualized skeletal structures. Ascites within a ventral hernia is incidentally noted. IMPRESSION: 1. Large volume abdominal and pelvic ascites. 2. Suspected cirrhosis. Suboptimal evaluation of the liver on this unenhanced exam. 3. Distal esophageal wall thickening which is nonspecific but may reflect esophagitis. Trace adjacent stranding and fluid. 4. Several mildly enlarged upper abdominal lymph nodes which are nonspecific although may be related to liver disease. ACT 112: Negative or not required by law. Electronically signed by: William Anderson M.D. 01/25/2022 8:[address] 01/25/22 19:09 CT OF THE CHEST WITHOUT IV CONTRAST CLINICAL HISTORY: Chest pain. Vomiting. COMPARISON STUDY: Chest CT January 30, 2014. Chest radiograph performed earlier today. TECHNIQUE: Axial images of the chest were obtained without IV contrast. Images were reviewed in the axial, sagittal, and coronal planes. IV contrast was not administered for this examination. Automated exposure control was utilized for the study. A dose lowering technique was utilized adhering to the principles of ALARA. FINDINGS: Size of the heart is normal. There is no pericardial effusion. There are multiple prominent mediastinal nodes. Index right paratracheal lymph node measures 8 mm in short axis to a rib. These are slightly increased in size since CT of January 30, 2014. There is moderate circumferential wall thickening of the distal esophagus with adjacent stranding and trace fluid. There is no pneumomediastinum. The esophagus is mildly dilated and fluid-filled. Abdomen and pelvis will be reported separately. Large volume ascites is better depicted on that exam. Moderate elevation the right hemidiaphragm is present. Subpleural opacities within lungs favor atelectasis. No consolidation to suggest pneumonia. No pneumothorax or pleural effusion is present. IMPRESSION: 1. Moderate circumferential wall thickening of the distal esophagus with adjacent stranding and trace fluid. This wall thickening is nonspecific although may reflect esophagitis. Nonemergent endoscopy is recommended to exclude the possibility of an underlying mucosal lesion. 2. Large volume ascites, better depicted on the CT of the abdomen and pelvis. Moderate elevation of the right hemidiaphragm. 3. Subpleural opacities within lungs consistent with atelectasis. No consolidation to suggest pneumonia. 4. Prominent mediastinal lymph nodes, slightly increased in size since CT of January 30, 2014. These are probably benign. A follow-up chest CT in 6 months to ensure stability is recommended. ACT 112: Negative or not required by law. Electronically signed by: William Anderson M.D. 01/25/2022 8:21 PM Discharge Plan Visit Data Chief Complaint: Chest Pain Stated Complaint: CHEST PAINS, SWOLLEN ABDOMEN ED Provider: Gonzalo Bates Discharge Problem: Chest pain, Esophagitis, Acute upper gastrointestinal bleeding, Abdominal asc ites Patient Disposition: Admitted As Inpatient Discharge Instructions Interventions: ED Discharge Assessment Last Done: 01/25/22 21:42 Discharge Problem: Chest pain Qualifiers: Chest pain type: unspecified Qualified Code(s): R07.9 - Chest pain, unspecified Abdominal ascites Qualifiers: Ascites type: due to alcoholic hepatitis Qualified Code(s): K70.11 - Alcoholic hepatitis with ascites
[2022-01-25 17:06] LABS: Basophils # (auto) 0.03 K/uL (0-0.2); Basophils % (auto) 0.2 %; Eosinophils # (auto) 0.05 K/uL (0-0.5); Eosinophils % (auto) 0.4 %; Hematocrit (blood only) 42.9 % (42-52); Hemoglobin 14.4 g/dL (14.0-18.0); Immature Granulocytes # (auto) 0.02 K/uL (0.00-0.02); Immature Granulocytes % (auto) 0.2 %; Lymphocytes # (auto) 1.21 K/uL (1.2-3.4); Lymphocytes % (auto) 9.6 %; Mean Corpuscular Hemoglobin 33.7 pg (25-34); Mean Corpuscular Hgb Conc 33.6 g/dL (32-36); Mean Corpuscular Volume 100.5 fL (80-100); Mean Platelet Volume 10.8 fL (7.4-10.4); Monocytes # (auto) 1.45 K/uL (0.11-0.59); Monocytes % (auto) 11.6 %; Neutrophils # (auto) 9.79 K/uL (1.4-6.5); Platelet Count 350 K/uL (130-400); RDW Coefficient of Variation 14.5 % (11.5-14.5); RDW Standard Deviation 52.8 fL (36.4-46.3); Red Blood Count 4.27 M/uL (4.7-6.1); White Blood Count 12.55 K/uL (4.8-10.8)
--- NOTE | 2022-01-25 17:22 | XRay Report ---
XR chest 1V portable CLINICAL HISTORY: Atypical chest pain. COMPARISON STUDY: Chest radiograph September 01, 2021. FINDINGS: Linear bibasilar opacities favor atelectasis. There is moderate elevation the right hemidia phragm. No evidence for pulmonary edema or pneumonia. Cardiac size is normal. Mediastinal contours ar e normal. IMPRESSION: Moderate elevation of the right hemidiaphragm. Bibasilar opacities favor atelectasis. ACT 112: Negative or not required by law. Electronically signed by: William Anderson M.D. 01/25/2022 5:21 PM
--- NOTE | 2022-01-25 17:25 | XRay Report ---
KUB CLINICAL HISTORY: Abdominal pain. COMPARISON STUDY: CT of the abdomen and pelvis September 02, 2021. FINDINGS: Single loop of mildly dilated gas-filled small bowel is noted. Abdomen and pelvis is relati vely gasless. No urinary calculi are identified. Although suboptimally assessed by radiography, ther e is possible ascites. IMPRESSION: 1. Single loop of mildly dilated gas-filled small bowel. Although nonspecific, the findings are not h ighly suggestive of a small bowel obstruction. 2. Possible ascites, suboptimally assessed by radiography. Ultrasound could be obtained. ACT 112: Negative or not required by law. Electronically signed by: William Anderson M.D. 01/25/2022 5:24 PM
[2022-01-25 17:36] LABS: Troponin I High Sensitivity 5.6 pg/ml (0-20)
[2022-01-25 17:42] LABS: INR 1.2 (0.9-1.1); Partial Thromboplastin Ratio 0.9; Partial Thromboplastin Time 24.5 Seconds (21.0-31.0); Prothrombin Time 12.2 Seconds (9.0-12.0)
[2022-01-25 17:54] LABS: Alanine Aminotransferase 11 U/L (7-52); Albumin Globulin Ratio 0.5 (0.9-2); Albumin Level 2.5 gm/dl (3.4-5.0); Alkaline Phosphatase 61 U/L (34-104); Anion Gap 12 (3-11); BUN Creatinine Ratio 8.8 (10-20); Bilirubin,Total 1.2 mg/dl (0.2-1.0); Blood Urea Nitrogen 6 mg/dl (6-23); Calcium 8.8 mg/dl (8.5-10.1); Carbon Dioxide 23 mmol/L (21-32); Chloride 104 mmol/L (98-107); Creatinine Clr Calc Pharmacy 126.1 ml/min; Est GFR (Non-African American) 105.3 ml/min; Globulin 5.2 gm/dl (2.5-4.0); Glucose 118 mg/dl (70-99(Fasting)); Lipase 36 U/L (11-82); Sodium 139 mmol/L (136-145); Total Protein 7.7 gm/dl (6.0-8.3)
[2022-01-25 19:15] LABS: Bilirubin Direct 0.4 mg/dl (0-0.2); Potassium 3.2 mmol/L (3.5-5.1)
[2022-01-25] MEDS ORDERED: PIPERACILLIN/TAZOBACTAM 4.5 GM/120 ML BAG IV ONE (20:21)
[2022-01-25] MEDS ORDERED: ALUMINUM/MAGNESIUM SUSP 30 ML UDC PO STA (20:21)
[2022-01-25] MEDS ORDERED: PIPERACILL/TAZOBAC CONSULT ACTIVE PRN (20:21)
--- NOTE | 2022-01-25 20:23 | CT Scan Report ---
CT OF THE CHEST WITHOUT IV CONTRAST CLINICAL HISTORY: Chest pain. Vomiting. COMPARISON STUDY: Chest CT January 30, 2014. Chest radiograph performed earlier today. TECHNIQUE: Axial images of the chest were obtained without IV contrast. Images were reviewed in the axial, sagittal, and coronal planes. IV contrast was not administered for this examination. Automat ed exposure control was utilized for the study. A dose lowering technique was utilized adhering to t he principles of ALARA. FINDINGS: Size of the heart is normal. There is no pericardial effusion. There are multiple prominen t mediastinal nodes. Index right paratracheal lymph node measures 8 mm in short axis to a rib. These are slightly increased in size since CT of January 30, 2014. There is moderate circumferential wall thi ckening of the distal esophagus with adjacent stranding and trace fluid. There is no pneumomediastinu m. The esophagus is mildly dilated and fluid-filled. Abdomen and pelvis will be reported separately. Large volume ascites is better depicted on that exam. Moderate elevation the right hemidiaphragm is p resent. Subpleural opacities within lungs favor atelectasis. No consolidation to suggest pneumonia. N o pneumothorax or pleural effusion is present. IMPRESSION: 1. Moderate circumferential wall thickening of the distal esophagus with adjacent stranding and trace fluid. This wall thickening is nonspecific although may reflect esophagitis. Nonemergent endoscopy i s recommended to exclude the possibility of an underlying mucosal lesion. 2. Large volume ascites, better depicted on the CT of the abdomen and pelvis. Moderate elevation of t he right hemidiaphragm. 3. Subpleural opacities within lungs consistent with atelectasis. No consolidation to suggest pneumon ia. 4. Prominent mediastinal lymph nodes, slightly increased in size since CT of January 30, 2014. These ar e probably benign. A follow-up chest CT in 6 months to ensure stability is recommended. ACT 112: Negative or not required by law. Electronically signed by: William Anderson M.D. 01/25/2022 8:21 PM
--- NOTE | 2022-01-25 20:56 | CT Scan Report ---
CT OF THE ABDOMEN AND PELVIS WITHOUT CONTRAST CLINICAL HISTORY: Vomiting. COMPARISON STUDY: CT of the abdomen and pelvis and right upper quadrant ultrasound September 02, 2021 . TECHNIQUE: Axial images of the abdomen and pelvis were obtained without IV contrast. Images were revi ewed in the axial, sagittal, and coronal planes. Automated exposure control was utilized for the chen dy. A dose lowering technique was utilized adhering to the principles of ALARA. FINDINGS: Please note that the chest CT will be reported separately. Distal esophageal wall thickenin g with adjacent stranding and fluid is better depicted on that exam. Please see that report for furth er description. There is moderate elevation the right hemidiaphragm. Evaluation of the abdomen and pe lvis is suboptimal on this unenhanced exam. No pneumatosis, free air or portal venous gas is present. The liver is somewhat small. The liver is decreased in size since CT. There may be slight nodularity of the liver surface. Findings suggest cirrhosis. No hepatic lesions are identified although sensiti vity is diminished on this unenhanced exam. There is hyperdense material within the gallbladder. No b iliary or pancreatic ductal dilatation is present. Size of the spleen is normal. Unenhanced images of the adrenal glands, kidneys and pancreas are unremarkable. No peripancreatic infiltration. Multiple mildly enlarged upper abdominal lymph nodes measure up to 1.5 cm in short axis diameter. These may be related to liver disease. Large volume abdominal and pelvic ascites is noted. No evidence for a gabriella l obstruction. There is no hydronephrosis. No acute fracture or suspicious lesion is identified withi n the visualized skeletal structures. Ascites within a ventral hernia is incidentally noted. IMPRESSION: 1. Large volume abdominal and pelvic ascites. 2. Suspected cirrhosis. Suboptimal evaluation of the liver on this unenhanced exam. 3. Distal esophageal wall thickening which is nonspecific but may reflect esophagitis. Trace adjacent stranding and fluid. 4. Several mildly enlarged upper abdominal lymph nodes which are nonspecific although may be related to liver disease. ACT 112: Negative or not required by law. Electronically signed by: William Anderson M.D. 01/25/2022 8:53 PM
--- NOTE | 2022-01-25 21:38 | History & Physical Report ---
Date of Service January 25, 2022 Assessment & Plan (1) Esophageal bleeding: Plan: Patient presented with dark red vomitus and has resting tachycardia. He is a chronic drinker of alcohol and smokers cigarettes daily. He takes NSAIDs consistently for chronic back pain. There is a concern for variceal bleeding here given this presentation, and he has not yet been evaluated with endoscopy. H/H is normal, however, CT chest reveals concerning wall thickening at the d istal esophagus with adjacent stranding and trace fluid. Differential diagnosis includes but not limited to bleeding, neoplasm, ulceration and esophagitis. Further evaluation with endoscopy may be warranted. Given the presentation he was placed on a protonix and octreotide infusion as well as started on propranolol pending GI consultation in am. Small additional bolus of IVF was given to improve hemodynamics. Cont monitoring on telemetry. (2) Decompensation of cirrhosis of liver: Plan: Ascites present--therapeutic/diag paracentesis ordered for am under us guidance. Radiology aware of this request. Would continue to monitor urinary and bowel habits once this pressure is relieved. Additional important screenings were discussed with him such as aFP screening and RUQ US every 6 months. May consider spironolactone 50mg daily and Furosemide 20 daily at time of discharge to keep ascites down. With current possible infection and hypokalemia, this was not added now. (3) Alcohol abuse: Plan: chronic, long-standing drinker of beer. Tachycardia may be reflective of some component of withdrawal from alcohol, however, patient states that he has not drank in two weeks. (4) Chronic back pain: Plan: chronic, with progressive weakness of legs. This was not seen on limited exam at bedside. Further evaluation with PT/OT may be helpful. Noted reviewed MRI L- Spine last Aug 29 with some degenerative changes noted. (5) Urinary retention: Plan: able to spontaneously void this evening, hope this to improve after paracentesis. (6) Smoker: Plan: nitocitne patch, encouraged to quit. (7) DVT prophylaxis: Plan: SCDs-holding chemoprophylaxis given possible bleed and procedures in am. Full code Dispo-PCU, pending further GI consultation and plans and clinical improvement post-paracentesis. Pt states that he lives with his and son and both are aware he is here. Gwen Gaspar DO [facility] History of Present Illness Chief Complaint: abdominal pain Primary Care Provider: David Adler The patient is a 56 yo alcoholic cirrhotic who is still drinking, with last drink reported two weeks ago. He reports presenting to the [facility] of vomiting a dark red substance and having worsening severe pain throughout the day today. He reports a new diagnosis of cirrhosis approximately 3 months ago and has significant ascites that is making him very uncomfortable. He reports difficulty urinating and bowel incontinence in the last month, possibly related to the pressure from his protuberant abdomen. He does have chronic back pain and reports progressive subjective leg weakness especially when trying to move upstairs. He was a farm laborer lifelong and reports chronic back pain and shoulder cuff injuries related to repetitive heavy lifitng throughout his life. He smokes actively and reports taking NSAIDs OTC for his back consistently but not daily. He continues to drink a 6 pack per day. He has not been to see a GI doctor yet and denies ever using diuretics. He reports taking no medications. He reports improvement in his symptoms from the Maalox given to him in the ER. He otherwise denies any fevers, chill, chest pain, SOB. He reports a daily cough and an occasional headache when he awakens that goes away spontaneously. He reports typically being a good eater but lately has early satiety where he can drink one glass of water and feel full. Labwork reveals a mild leukocytosis with a WBC 12K, normal H/H (14.4/43), elevated MCV, INR 1.2, K 3.2, normal creat, tot bili 1.2, AST 24, ALT 11, alb 2.5, lipase 36. CT imaging reveals large volume abdominal and pelvic ascites, distal esophageal wall thickening with trace adjacent stranding and gluid and several mildly enlarged upper abdominal lymph nodes which are nonspecific although may be related to liver disease. Allergies Allergy/AdvReac Type Severity Reaction Status Date / Time No Known Allergies Allergy Verified 01/25/22 16:26 Home Medications Medication Instructions Recorded Confirmed Type No Known Home Medications 01/25/22 01/25/22 History Past Med/Surg History Medical History (Updated 01/25/22 @ 23:16 by Gwen Gaspar, ) Abnormal LFTs Alcohol abuse Alcoholic hepatitis Back pain Depression Failure to thrive Reflux esophagitis Seizure Urinary retention Surgical History H/O rotator cuff surgery Family History Mother Diabetes Father Diabetes Social History Smoking Status: Current every day smoker Tobacco Type: Cigarettes Hx Alcohol Use: Yes Alcohol type: beer Alcohol Intake Frequency: 4 or More x per/Week Alcohol Intake Frequency Comment: 6 pack per day Preferred Language: Maltese Communication Ability: Effective Terminal Clerk Required: No Feels Safe at Home: Yes Assistive Devices: None Review of Systems Review of Systems: All systems were reviewed and negative except as indicated above. Physical Exam Physical Exam: CONSTITUTIONAL: thin, appears malnourished, vitals as above, generally NAD EYES: normal conjunctivae, no scleral icterus ENT: external ear and nose normal, MMM NECK: trachea midline RESPIRATORY: clear to auscultation bilaterally, no crackles, rales or wheezes, normal respiratory effort CARDIOVASCULAR: tachy rate and rhythm, S1 and 2 heard without murmurs, gallops or rubs, no JVD, no peripheral edema CHEST: inspection of chest was normal GASTROINTESTINAL: protuberant, soft, nontender, no guarding. MUSCULOSKELETAL: strength 5/5 in bilateral legs, gait not assessed 2/2 fall ri sk and patient discomfort, head is normocephalic and atraumatic SKIN: warm and dry NEUROLOGIC: patellar DTRs 2+ bilat. CN 2-12 grossly intact aside from strabismus in left eye, no sensory deficit, normal cognition, normal speech, no tremor PSYCHIATRIC: alert cooperative and oriented to person, place and time. Results & Data Results & Data ([facility]) Vital Signs (Past 12 Hours) Vital Signs Temp Pulse Pulse Resp BP BP Pulse Ox 01/25/22 18:00 118 H 20 125/75 98 01/25/22 16:14 120 H 110 H 22 124/81 98 01/25/22 15:43 37.0 C 128 H 20 137/103 H 96 Laboratory Results Short CBC 01/25/22 Range/Units 16:50 WBC 12.55 H (4.8-10.8) K/uL Hgb 14.4 (14.0-18.0) g/dL Hct 42.9 (42-52) % Plt Count 350 (130-400) K/uL BMP 01/25/22 01/25/22 16:50 17:21 Sodium 139 Potassium TNP 3.2 L Chloride 104 Carbon Dioxide 23 BUN 6 Creatinine 0.68 Glucose 118 H Calcium 8.8 Liver Function 01/25/22 01/25/22 Range/Units 16:50 17:21 Total Bilirubin 1.2 H (0.2-1.0) mg/dl Direct Bilirubin TNP 0.4 H AST TNP 24 ALT 11 (7-52) U/L Alkaline Phosphatase 61 (34-104) U/L Albumin 2.5 L (3.4-5.0) gm/dl Diagnostic Findings Chest X-Ray 01/25/22 16:14 XR chest 1V portable CLINICAL HISTORY: Atypical chest pain. COMPARISON STUDY: Chest radiograph September 01, 2021. FINDINGS: Linear bibasilar opacities favor atelectasis. There is moderate elevation the right hemidiaphragm. No evidence for pulmonary edema or pneumonia. Cardiac size is normal. Mediastinal contours are normal. IMPRESSION: Moderate elevation of the right hemidiaphragm. Bibasilar opacities favor atelectasis. ACT 112: Negative or not required by law. Electronically signed by: William Anderson M.D. 01/25/2022 5:21 PM KUB X-Ray 01/25/22 16:14 KUB CLINICAL HISTORY: Abdominal pain. COMPARISON STUDY: CT of the abdomen and pelvis September 02, 2021. FINDINGS: Single loop of mildly dilated gas-filled small bowel is noted. Abdomen and pelvis is relatively gasless. No urinary calculi are identified. Although suboptimally assessed by radiography, there is possible ascites. IMPRESSION: 1. Single loop of mildly dilated gas-filled small bowel. Although nonspecific, the findings are not highly suggestive of a small bowel obstruction. 2. Possible ascites, suboptimally assessed by radiography. Ultrasound could be obtained. ACT 112: Negative or not required by law. Electronically signed by: William Anderson M.D. 01/25/2022 5:24 PM Abdomen/Pelvis CT 01/25/22 19:09 CT OF THE ABDOMEN AND PELVIS WITHOUT CONTRAST CLINICAL HISTORY: Vomiting. COMPARISON STUDY: CT of the abdomen and pelvis and right upper quadrant ultrasound September 02, 2021. TECHNIQUE: Axial images of the abdomen and pelvis were obtained without IV contrast. Images were reviewed in the axial, sagittal, and coronal planes. Automated exposure control was utilized for the study. A dose lowering liza hnique was utilized adhering to the principles of ALARA. FINDINGS: Please note that the chest CT will be reported separately. Distal esophageal wall thickening with adjacent stranding and fluid is better depicted on that exam. Please see that report for further description. There is moderate elevation the right hemidiaphragm. Evaluation of the abdomen and pelvis is suboptimal on this unenhanced exam. No pneumatosis, free air or portal venous gas is present. The liver is somewhat small. The liver is decreased in size since CT. There may be slight nodularity of the liver surface. Findings suggest cirrhosis. No hepatic lesions are identified although sensitivity is diminished on this unenhanced exam. There is hyperdense material within the gallbladder. No biliary or pancreatic ductal dilatation is present. Size of the spleen is normal. Unenhanced images of the adrenal glands, kidneys and pancreas are unremarkable. No peripancreatic infiltration. Multiple mildly enlarged upper abdominal lymph nodes measure up to 1.5 cm in short axis diameter. These may be related to liver disease. Large volume abdominal and pelvic ascites is noted. No evidence for a bowel obstruction. There is no hydronephrosis. No acute fracture or suspicious lesion is identified within the visualized skeletal structures. Ascites within a ventral hernia is incidentally noted. IMPRESSION: 1. Large volume abdominal and pelvic ascites. 2. Suspected cirrhosis. Suboptimal evaluation of the liver on this unenhanced exam. 3. Distal esophageal wall thickening which is nonspecific but may reflect esopha gitis. Trace adjacent stranding and fluid. 4. Several mildly enlarged upper abdominal lymph nodes which are nonspecific although may be related to liver disease. ACT 112: Negative or not required by law. Electronically signed by: William Anderson M.D. 01/25/2022 8:[address] 01/25/22 19:09 CT OF THE CHEST WITHOUT IV CONTRAST CLINICAL HISTORY: Chest pain. Vomiting. COMPARISON STUDY: Chest CT January 30, 2014. Chest radiograph performed earlier today. TECHNIQUE: Axial images of the chest were obtained without IV contrast. Images were reviewed in the axial, sagittal, and coronal planes. IV contrast was not administered for this examination. Automated exposure control was utilized for the study. A dose lowering technique was utilized adhering to the principles of ALARA. FINDINGS: Size of the heart is normal. There is no pericardial effusion. There are multiple prominent mediastinal nodes. Index right paratracheal lymph node measures 8 mm in short axis to a rib. These are slightly increased in size since CT of January 30, 2014. There is moderate circumferential wall thickening of the distal esophagus with adjacent stranding and trace fluid. There is no pneumomediastinum. The esophagus is mildly dilated and fluid-filled. Abdomen and pelvis will be reported separately. Large volume ascites is better depicted on that exam. Moderate elevation the right hemidiaphragm is present. Subpleural opacities within lungs favor atelectasis. No consolidation to suggest pneumonia. No pneumothorax or pleural effusion is present. IMPRESSION: 1. Moderate circumferential wall thickening of the distal esophagus with adjacent stranding and trace fluid. This wall thickening is nonspecific although may reflect esophagitis. Nonemergent endoscopy is recommended to exclude the possibility of an underlying mucosal lesion. 2. Large volume ascites, better depicted on the CT of the abdomen and pelvis. Moderate elevation of the right hemidiaphragm. 3. Subpleural opacities within lungs consistent with atelectasis. No consolidation to suggest pneumonia. 4. Prominent mediastinal lymph nodes, slightly increased in size since CT of Ap 2013. These are probably benign. A follow-up chest CT in 6 months to ensure stability is recommended. ACT 112: Negative or not required by law. Electronically signed by: William Anderson M.D. 01/25/2022 8:21 PM Code Status & VTE Plan VTE Prophylaxis Plan VTE Prophylaxis will be ordered: Yes
[2022-01-25] MEDS ORDERED: ACETAMINOPHEN 500 MG TAB PO PRN (21:56)
[2022-01-25] MEDS ORDERED: ONDANSETRON INJ 2 MG/ML 2 ML VIAL IV PRN (21:56)
[2022-01-25] MEDS ORDERED: POLYETHYLENE (MIRALAX) 17 GM PACK PO PRN (21:56)
[2022-01-25] MEDS ORDERED: ALUMINUM/MAGNESIUM/SIMETH (MAALOX MAX) 30 ML UDC PO PRN (22:44)
[2022-01-25] MEDS ORDERED: STAT IV STA (22:45)
[2022-01-25] MEDS ORDERED: SODIUM CHLORIDE 0.9% 1000ML 500 ML IV ONE (22:54)
[2022-01-25] MEDS ORDERED: LORazepam 1 MG TAB PO PRN (22:54)
[2022-01-25] MEDS: cefTRIAXone SODIUM 1,000 MG in DEXTROSE 5% 50 ML IV SCH (23:00)
[2022-01-25] MEDS ORDERED: POTASSIUM CHLORIDE CRTAB 20 MEQ TABCR PO STA (23:07)
[2022-01-25] MEDS: OCTREOTIDE ACETATE 500 MCG in DEXTROSE 5% 100 ML IV SCH (23:33)
[2022-01-25] MEDS: PANTOprazole 40 MG in DEXTROSE 5% 100 ML IV SCH (23:42)
[2022-01-26] MEDS: THIAMINE HCL 100 MG TAB PO SCH ×2 (00:09→10:45)
[2022-01-26] MEDS: PROPRANOLOL HCL 20 MG TAB PO SCH ×3 (00:09→20:08)
[2022-01-26] MEDS: FOLIC ACID 1 MG TAB PO SCH ×2 (00:10→10:42)
[2022-01-26] MEDS: PANTOprazole 40 MG in DEXTROSE 5% 100 ML IV SCH ×5 (03:44→23:41)
[2022-01-26 03:52] LABS: Appearance Urine Clear (Clear); Bilirubin Urine Negative (Negative); Blood Urine Negative (Negative); Color Urine Yellow; Glucose Urine UA Negative (Negative); Ketones Urine Negative (Negative); Leukocyte Esterase Urine Negative (Negative); Nitrite Urine Negative (Negative); Protein Urine Negative (Negative); Specific Gravity Urine 1.014 (1.000-1.030); Urobilinogen Urine Negative (Negative)
[2022-01-26 04:33] LABS: Amphetamines+Metham, Urine Neg (Neg); Barbiturates, Urine Neg (Neg); Benzodiazepine, Urine Neg (Neg); Cocaine, Urine Neg (Neg); MDMA (Ecstacy), Urine Neg (Neg); Methadone, Urine Neg (Neg); Opiate, Urine Neg (Neg); Phencyclidine, Urine Neg (Neg)
--- NOTE | 2022-01-26 07:31 | Hospitalist Progress Note ---
Date of Service January 26, 2022 Assessment & Plan (1) Esophageal bleeding: Plan: Patient presented with dark red vomitus and resting tachycardia. He is a chronic drinker of alcohol and smokers cigarettes daily. He takes NSAIDs consistently for chronic back pain. There is a concern for variceal bleeding here given this presentation, and he has not yet been evaluated with endoscopy. H/H normal initially on admission, now Hgb down to 10 - will repeat H&H now CT chest on admission reveals concerning wall thickening at the distal esophagus with adjacent stranding and trace fluid. Differential diagnosis includes but not limited to bleeding, neoplasm, ulcera tion and esophagitis. Further evaluation with endoscopy may be warranted. Given the presentation he was placed on a protonix and octreotide infusion as well as started on propranolol pending GI consultation in am. Cont monitoring on telemetry. GI consulted, plan for EGD tomorrow (01/27) (2) Decompensation of cirrhosis of liver: Plan: Ascites present--therapeutic/diag paracentesis ordered for under us guidance. Continue to monitor urinary and bowel habits once this pressure is relieved. Additional important screenings were discussed with him such as aFP screening and RUQ US every 6 months. May consider spironolactone 50mg daily and Furosemide 20 daily at time of discharge to keep ascites down. 01/26 -patient status post paracentesis, 5 L of fluid removed. Albumin given. Per GI, recommend hepatic Doppler 1. Exam mildly compromised but main portal vein patent with appropriately directed flow. 2. Cirrhosis. Perihepatic ascites. 3. Sludge or nonshadowing stones within the gallbladder. No evidence for acute cholecystitis. May need to remove additional fluid by paracentesis prior to EGD Diuretics ordered by GI Urine prot/ Cr ratio ordered w/ AM labs (3) Alcohol abuse: Plan: chronic, long-standing drinker of beer. Tachycardia may be reflective of some component of withdrawal from alcohol, however, patient states that he has not drank in two weeks. (4) Chronic back pain: Plan: chronic, with progressive weakness of legs. This was not seen on limited exam at bedside. Further evaluation with PT/OT may be helpful. Noted reviewed MRI L- Spine last Aug 29 with some degenerative changes noted. (5) Urinary retention: Plan: able to spontaneously void , this should also improve after paracentesis. (6) Smoker: Plan: nitocitne patch, encouraged to quit. (7) DVT prophylaxis: Plan: SCDs-holding chemoprophylaxis given possible bleed and procedures in am. Full code Dispo-PCU, pending further GI consultation and plans and clinical improvement post-paracentesis. Pt states that he lives with his and son and both are aware he is here. Admission and Anticipated Discharge Date Admission Date: January 25, 2022 Subjective Pt seen in follow up of abd. pain/ distention, ? hematemesis Pt underwent paracentesis earlier today w/ removal of 5L of fluid Currently laying in bed and reports feeling much better Abd. discomfort much improved Denies any fever, chills. chest pain, shortness of breath Review of Systems Review of Systems: All systems reviewed & are unremarkable except as noted in Subjective Physical Exam Physical Exam: CONSTITUTIONAL: thin, appears malnourished, in NAD EYES: normal conjunctivae, no scleral icterus ENT: external ear and nose normal, MMM NECK: supple RESPIRATORY: clear to auscultation bilaterally, no crackles, rales or wheezes, normal respiratory effort CARDIOVASCULAR: rrr, S1 and 2 heard without murmurs, gallops or rubs, no JVD, no peripheral edema CHEST: inspection of chest was normal GASTROINTESTINAL: protuberant, soft, nontender, no guarding. MUSCULOSKELETAL: strength 5/5 in bilateral legs, head is normocephalic and atraumatic SKIN: warm and dry NEURO/PSYCH:alert and oriented and answering questions appropriately, speech fluent, no facial asymmetry, moves extremities Results & Data Results & Data ([facility]) Vital Signs (Past 12 Hours) Vital Signs Temp Pulse Pulse Resp BP Pulse Ox 01/26/22 07:28 81 01/26/22 03:46 36.5 C 78 18 95/61 L 93 01/25/22 23:35 109 H 01/25/22 22:20 37.1 C 116 H 18 131/75 95 Laboratory Results 01/26/22 01/26/22 01/26/22 Range/Units Unknown Unknown 06:56 WBC (4.8-10.8) K/uL RBC (4.7-6.1) M/uL Hgb (14.0-18.0) g/dL Hct (42-52) % MCV (80-100) fL MCH (25-34) pg MCHC (32-36) g/dL RDW Std Deviation (36.4-46.3) fL RDW Coeff of Chrissy (11.5-14.5) % Plt Count (130-400) K/uL MPV (7.4-10.4) fL Immature Gran % (Auto) % Neut % (Auto) % Lymph % (Auto) % Wake % (Auto) % Eos % (Auto) % Baso % (Auto) % Neut # (Auto) (1.4-6.5) K/uL Lymph # (Auto) (1.2-3.4) K/uL Wake # (Auto) (0.11-0.59) K/uL Eos # (Auto) (0-0.5) K/uL Baso # (Auto) (0-0.2) K/uL Immature Gran # (Auto) (0.00-0.02) K/uL PT (9.0-12.0) Seconds INR (0.9-1.1) APTT (21.0-31.0) Seconds PTT Ratio Sodium (136-145) mmol/L Potassium Chloride (98-107) mmol/L Carbon Dioxide (21-32) mmol/L Anion Gap (3-11) BUN (6-23) mg/dl Creatinine (0.6-1.4) mg/dl Est Cr Clr Drug Dosing ml/min Est GFR ( Amer) ml/min Est GFR (Non-Af Amer) ml/min BUN/Creatinine Ratio (10-20) Glucose (70-99(Fasting)) mg/dl Calcium (8.5-10.1) mg/dl Magnesium (1.7-2.4) mg/dl Total Bilirubin (0.2-1.0) mg/dl Direct Bilirubin AST ALT (7-52) U/L Alkaline Phosphatase (34-104) U/L Troponin I High Sens (0-20) pg/ml Total Protein (6.0-8.3) gm/dl Albumin (3.4-5.0) gm/dl Globulin (2.5-4.0) gm/dl Albumin/Globulin Ratio (0.9-2) Lipase (11-82) U/L Urine Color Urine Appearance (Clear) Urine pH (4.5-7.5) Ur Specific [place] (1.000-1.030) Urine Protein (Negative) Urine Glucose (UA) (Negative) Urine Ketones (Negative) Urine Blood (Negative) Urine Nitrite (Negative) Urine Bilirubin (Negative) Urine Urobilinogen (Negative) Ur Leukocyte Esterase (Negative) Fluid Neutrophils % 15 % Fluid Lymphocytes % 24 % Fluid Eosinophils % 2 % Fluid Basophils % 0 % Fluid Meso/Macro/Wake % 59 % Fluid Comment Peritoneal Color PALE YELLOW Peritoneal Appearance CLEAR Peritoneal WBC 145 (0-300) /ul Peritoneal RBC < 3000 /uL Peritoneal Tot Protein < 3.0 gm/dl Peritoneal Albumin < 1.5 gm/dl Urine Opiates Screen (Neg) Ur Methadone, Qual (Neg) Urine Barbiturates (Neg) Ur Phencyclidine (PCP) (Neg) U Amphetamin/Meth Scrn (Neg) MDMA (Ecstasy) Screen (Neg) U Benzodiazepines Scrn (Neg) Ur Cocaine Metabolite (Neg) U Marijuana (THC) Screen (Neg) Ethyl Alcohol mg/dL (<10.0) mg/dl Hepatitis C Ab (EIA) Pending Hep C Ab Signal/Cutoff Pending SARS-CoV-2, RNA, NAAT (NEGATIVE) 01/26/22 01/26/22 01/26/22 Range/Units 06:56 06:56 06:56 WBC 12.70 H (4.8-10.8) K/uL RBC 3.15 L (4.7-6.1) M/uL Hgb 10.4 L D (14.0-18.0) g/dL Hct 32.0 L (42-52) % MCV 101.6 H (80-100) fL MCH 33.0 (25-34) pg MCHC 32.5 (32-36) g/dL RDW Std Deviation 53.7 H (36.4-46.3) fL RDW Coeff of Chrissy 14.6 H (11.5-14.5) % Plt Count 321 (130-400) K/uL MPV 10.4 (7.4-10.4) fL Immature Gran % (Auto) % Neut % (Auto) % Lymph % (Auto) % Wake % (Auto) % Eos % (Auto) % Baso % (Auto) % Neut # (Auto) (1.4-6.5) K/uL Lymph # (Auto) (1.2-3.4) K/uL Wake # (Auto) (0.11-0.59) K/uL Eos # (Auto) (0-0.5) K/uL Baso # (Auto) (0-0.2) K/uL Immature Gran # (Auto) (0.00-0.02) K/uL PT 13.5 H (9.0-12.0) Seconds INR 1.3 H (0.9-1.1) APTT (21.0-31.0) Seconds PTT Ratio Sodium 140 (136-145) mmol/L Potassium 3.3 L Chloride 110 H (98-107) mmol/L Carbon Dioxide 25 (21-32) mmol/L Anion Gap 5 (3-11) BUN 6 (6-23) mg/dl Creatinine 0.80 (0.6-1.4) mg/dl Est Cr Clr Drug Dosing 107.2 ml/min Est GFR ( Amer) 114.1 ml/min Est GFR (Non-Af Amer) 98.5 ml/min BUN/Creatinine Ratio 7.5 L (10-20) Glucose 117 H (70-99(Fasting)) mg/dl Calcium 7.7 L (8.5-10.1) mg/dl Magnesium 1.8 (1.7-2.4) mg/dl Total Bilirubin 1.0 (0.2-1.0) mg/dl Direct Bilirubin AST 16 ALT 7 (7-52) U/L Alkaline Phosphatase 45 (34-104) U/L Troponin I High Sens (0-20) pg/ml Total Protein 5.4 L D (6.0-8.3) gm/dl Albumin 1.8 L (3.4-5.0) gm/dl Globulin 3.6 (2.5-4.0) gm/dl Albumin/Globulin Ratio 0.5 L (0.9-2) Lipase (11-82) U/L Urine Color Urine Appearance (Clear) Urine pH (4.5-7.5) Ur Specific [place] (1.000-1.030) Urine Protein (Negative) Urine Glucose (UA) (Negative) Urine Ketones (Negative) Urine Blood (Negative) Urine Nitrite (Negative) Urine Bilirubin (Negative) Urine Urobilinogen (Negative) Ur Leukocyte Esterase (Negative) Fluid Neutrophils % % Fluid Lymphocytes % % Fluid Eosinophils % % Fluid Basophils % % Fluid Meso/Macro/Wake % % Fluid Comment Peritoneal Color Peritoneal Appearance Peritoneal WBC (0-300) /ul Peritoneal RBC /uL Peritoneal Tot Protein gm/dl Peritoneal Albumin gm/dl Urine Opiates Screen (Neg) Ur Methadone, Qual (Neg) Urine Barbiturates (Neg) Ur Phencyclidine (PCP) (Neg) U Amphetamin/Meth Scrn (Neg) MDMA (Ecstasy) Screen (Neg) U Benzodiazepines Scrn (Neg) Ur Cocaine Metabolite (Neg) U Marijuana (THC) Screen (Neg) Ethyl Alcohol mg/dL (<10.0) mg/dl Hepatitis C Ab (EIA) Hep C Ab Signal/Cutoff SARS-CoV-2, RNA, NAAT (NEGATIVE) 01/26/22 01/26/22 01/25/22 Range/Units 03:19 03:19 20:31 WBC (4.8-10.8) K/uL RBC (4.7-6.1) M/uL Hgb (14.0-18.0) g/dL Hct (42-52) % MCV (80-100) fL MCH (25-34) pg MCHC (32-36) g/dL RDW Std Deviation (36.4-46.3) fL RDW Coeff of Chrissy (11.5-14.5) % Plt Count (130-400) K/uL MPV (7.4-10.4) fL Immature Gran % (Auto) % Neut % (Auto) % Lymph % (Auto) % Wake % (Auto) % Eos % (Auto) % Baso % (Auto) % Neut # (Auto) (1.4-6.5) K/uL Lymph # (Auto) (1.2-3.4) K/uL Wake # (Auto) (0.11-0.59) K/uL Eos # (Auto) (0-0.5) K/uL Baso # (Auto) (0-0.2) K/uL Immature Gran # (Auto) (0.00-0.02) K/uL PT (9.0-12.0) Seconds INR (0.9-1.1) APTT (21.0-31.0) Seconds PTT Ratio Sodium (136-145) mmol/L Potassium Chloride (98-107) mmol/L Carbon Dioxide (21-32) mmol/L Anion Gap (3-11) BUN (6-23) mg/dl Creatinine (0.6-1.4) mg/dl Est Cr Clr Drug Dosing ml/min Est GFR ( Amer) ml/min Est GFR (Non-Af Amer) ml/min BUN/Creatinine Ratio (10-20) Glucose (70-99(Fasting)) mg/dl Calcium (8.5-10.1) mg/dl Magnesium (1.7-2.4) mg/dl Total Bilirubin (0.2-1.0) mg/dl Direct Bilirubin AST ALT (7-52) U/L Alkaline Phosphatase (34-104) U/L Troponin I High Sens (0-20) pg/ml Total Protein (6.0-8.3) gm/dl Albumin (3.4-5.0) gm/dl Globulin (2.5-4.0) gm/dl Albumin/Globulin Ratio (0.9-2) Lipase (11-82) U/L Urine Color Yellow Urine Appearance Clear (Clear) Urine pH 5.0 (4.5-7.5) Ur Specific [place] 1.014 (1.000-1.030) Urine Protein Negative (Negative) Urine Glucose (UA) Negative (Negative) Urine Ketones Negative (Negative) Urine Blood Negative (Negative) Urine Nitrite Negative (Negative) Urine Bilirubin Negative (Negative) Urine Urobilinogen Negative (Negative) Ur Leukocyte Esterase Negative (Negative) Fluid Neutrophils % % Fluid Lymphocytes % % Fluid Eosinophils % % Fluid Basophils % % Fluid Meso/Macro/Wake % % Fluid Comment Peritoneal Color Peritoneal Appearance Peritoneal WBC (0-300) /ul Peritoneal RBC /uL Peritoneal Tot Protein gm/dl Peritoneal Albumin gm/dl Urine Opiates Screen Neg (Neg) Ur Methadone, Qual Neg (Neg) Urine Barbiturates Neg (Neg) Ur Phencyclidine (PCP) Neg (Neg) U Amphetamin/Meth Scrn Neg (Neg) MDMA (Ecstasy) Screen Neg (Neg) U Benzodiazepines Scrn Neg (Neg) Ur Cocaine Metabolite Neg (Neg) U Marijuana (THC) Screen Neg (Neg) Ethyl Alcohol mg/dL (<10.0) mg/dl Hepatitis C Ab (EIA) Hep C Ab Signal/Cutoff SARS-CoV-2, RNA, NAAT NEGATIVE (NEGATIVE) 01/25/22 01/25/22 01/25/22 Range/Units 17:21 17:21 16:50 WBC (4.8-10.8) K/uL RBC (4.7-6.1) M/uL Hgb (14.0-18.0) g/dL Hct (42-52) % MCV (80-100) fL MCH (25-34) pg MCHC (32-36) g/dL RDW Std Deviation (36.4-46.3) fL RDW Coeff of Chrissy (11.5-14.5) % Plt Count (130-400) K/uL MPV (7.4-10.4) fL Immature Gran % (Auto) % Neut % (Auto) % Lymph % (Auto) % Wake % (Auto) % Eos % (Auto) % Baso % (Auto) % Neut # (Auto) (1.4-6.5) K/uL Lymph # (Auto) (1.2-3.4) K/uL Wake # (Auto) (0.11-0.59) K/uL Eos # (Auto) (0-0.5) K/uL Baso # (Auto) (0-0.2) K/uL Immature Gran # (Auto) (0.00-0.02) K/uL PT 12.2 H (9.0-12.0) Seconds INR 1.2 H (0.9-1.1) APTT 24.5 (21.0-31.0) Seconds PTT Ratio 0.9 Sodium (136-145) mmol/L Potassium 3.2 L Chloride (98-107) mmol/L Carbon Dioxide (21-32) mmol/L Anion Gap (3-11) BUN (6-23) mg/dl Creatinine (0.6-1.4) mg/dl Est Cr Clr Drug Dosing ml/min Est GFR ( Amer) ml/min Est GFR (Non-Af Amer) ml/min BUN/Creatinine Ratio (10-20) Glucose (70-99(Fasting)) mg/dl Calcium (8.5-10.1) mg/dl Magnesium (1.7-2.4) mg/dl Total Bilirubin (0.2-1.0) mg/dl Direct Bilirubin 0.4 H AST 24 ALT (7-52) U/L Alkaline Phosphatase (34-104) U/L Troponin I High Sens (0-20) pg/ml Total Protein (6.0-8.3) gm/dl Albumin (3.4-5.0) gm/dl Globulin (2.5-4.0) gm/dl Albumin/Globulin Ratio (0.9-2) Lipase (11-82) U/L Urine Color Urine Appearance (Clear) Urine pH (4.5-7.5) Ur Specific [place] (1.000-1.030) Urine Protein (Negative) Urine Glucose (UA) (Negative) Urine Ketones (Negative) Urine Blood (Negative) Urine Nitrite (Negative) Urine Bilirubin (Negative) Urine Urobilinogen (Negative) Ur Leukocyte Esterase (Negative) Fluid Neutrophils % % Fluid Lymphocytes % % Fluid Eosinophils % % Fluid Basophils % % Fluid Meso/Macro/Wake % % Fluid Comment Peritoneal Color Peritoneal Appearance Peritoneal WBC (0-300) /ul Peritoneal RBC /uL Peritoneal Tot Protein gm/dl Peritoneal Albumin gm/dl Urine Opiates Screen (Neg) Ur Methadone, Qual (Neg) Urine Barbiturates (Neg) Ur Phencyclidine (PCP) (Neg) U Amphetamin/Meth Scrn (Neg) MDMA (Ecstasy) Screen (Neg) U Benzodiazepines Scrn (Neg) Ur Cocaine Metabolite (Neg) U Marijuana (THC) Screen (Neg) Ethyl Alcohol mg/dL < 10.0 (<10.0) mg/dl Hepatitis C Ab (EIA) Hep C Ab Signal/Cutoff SARS-CoV-2, RNA, NAAT (NEGATIVE) 01/25/22 01/25/22 Range/Units 16:50 16:50 WBC 12.55 H (4.8-10.8) K/uL RBC 4.27 L (4.7-6.1) M/uL Hgb 14.4 (14.0-18.0) g/dL Hct 42.9 (42-52) % MCV 100.5 H (80-100) fL MCH 33.7 (25-34) pg MCHC 33.6 (32-36) g/dL RDW Std Deviation 52.8 H (36.4-46.3) fL RDW Coeff of Chrissy 14.5 (11.5-14.5) % Plt Count 350 (130-400) K/uL MPV 10.8 H (7.4-10.4) fL Immature Gran % (Auto) 0.2 % Neut % (Auto) 78.0 % Lymph % (Auto) 9.6 % Wake % (Auto) 11.6 % Eos % (Auto) 0.4 % Baso % (Auto) 0.2 % Neut # (Auto) 9.79 H (1.4-6.5) K/uL Lymph # (Auto) 1.21 (1.2-3.4) K/uL Wake # (Auto) 1.45 H (0.11-0.59) K/uL Eos # (Auto) 0.05 (0-0.5) K/uL Baso # (Auto) 0.03 (0-0.2) K/uL Immature Gran # (Auto) 0.02 (0.00-0.02) K/uL PT (9.0-12.0) Seconds INR (0.9-1.1) APTT (21.0-31.0) Seconds PTT Ratio Sodium 139 (136-145) mmol/L Potassium TNP Chloride 104 (98-107) mmol/L Carbon Dioxide 23 (21-32) mmol/L Anion Gap 12 H (3-11) BUN 6 (6-23) mg/dl Creatinine 0.68 (0.6-1.4) mg/dl Est Cr Clr Drug Dosing 126.1 ml/min Est GFR ( Amer) 122.0 ml/min Est GFR (Non-Af Amer) 105.3 ml/min BUN/Creatinine Ratio 8.8 L (10-20) Glucose 118 H (70-99(Fasting)) mg/dl Calcium 8.8 (8.5-10.1) mg/dl Magnesium (1.7-2.4) mg/dl Total Bilirubin 1.2 H (0.2-1.0) mg/dl Direct Bilirubin TNP AST TNP ALT 11 (7-52) U/L Alkaline Phosphatase 61 (34-104) U/L Troponin I High Sens 5.6 (0-20) pg/ml Total Protein 7.7 (6.0-8.3) gm/dl Albumin 2.5 L (3.4-5.0) gm/dl Globulin 5.2 H (2.5-4.0) gm/dl Albumin/Globulin Ratio 0.5 L (0.9-2) Lipase 36 (11-82) U/L Urine Color Urine Appearance (Clear) Urine pH (4.5-7.5) Ur Specific [place] (1.000-1.030) Urine Protein (Negative) Urine Glucose (UA) (Negative) Urine Ketones (Negative) Urine Blood (Negative) Urine Nitrite (Negative) Urine Bilirubin (Negative) Urine Urobilinogen (Negative) Ur Leukocyte Esterase (Negative) Fluid Neutrophils % % Fluid Lymphocytes % % Fluid Eosinophils % % Fluid Basophils % % Fluid Meso/Macro/Wake % % Fluid Comment Peritoneal Color Peritoneal Appearance Peritoneal WBC (0-300) /ul Peritoneal RBC /uL Peritoneal Tot Protein gm/dl Peritoneal Albumin gm/dl Urine Opiates Screen (Neg) Ur Methadone, Qual (Neg) Urine Barbiturates (Neg) Ur Phencyclidine (PCP) (Neg) U Amphetamin/Meth Scrn (Neg) MDMA (Ecstasy) Screen (Neg) U Benzodiazepines Scrn (Neg) Ur Cocaine Metabolite (Neg) U Marijuana (THC) Screen (Neg) Ethyl Alcohol mg/dL (<10.0) mg/dl Hepatitis C Ab (EIA) Hep C Ab Signal/Cutoff SARS-CoV-2, RNA, NAAT (NEGATIVE)
[2022-01-26] MEDS: OCTREOTIDE ACETATE 500 MCG in DEXTROSE 5% 100 ML IV SCH ×2 (08:11→19:43)
[2022-01-26 08:45] LABS: Albumin Globulin Ratio 0.5 (0.9-2); Albumin Level 1.8 gm/dl (3.4-5.0); BUN Creatinine Ratio 7.5 (10-20); Calcium 7.7 mg/dl (8.5-10.1); Creatinine Clr Calc Pharmacy 107.2 ml/min; Est GFR (African American) 114.1 ml/min; Est GFR (Non-African American) 98.5 ml/min; Globulin 3.6 gm/dl (2.5-4.0); Magnesium 1.8 mg/dl (1.7-2.4); Potassium 3.3 mmol/L (3.5-5.1); Total Protein 5.4 gm/dl (6.0-8.3)
--- NOTE | 2022-01-26 08:50 | Gastrointestinal Consultation ---
Date of Consultation January 26, 2022 Assessment & Plan (1) Coffee ground emesis: (2) Cirrhosis: 56 year old male with history of ETOH abuse, ongoing use, admitted with nausea/vomiting, report of coffee ground emesis at ?hematemesis. Imaging concerning for both cirrhosis and esophagitis. NPO EGD today Oral twice daily PPI ETOH withdrawal protocol ETOH cessation Diagnosed and therapeutic paracentesis OP Follow up to establish for cirrhosis management No NSAIDs Less than 2g sodium Less than 2g tylenol Thank you for allowing us to participate in the care of this patient. Please call with any acute changes, questions or concerns. Please see addendum below with additional recommendation from my supervising physician. Supervising Physician Co-Signing Physician Notes Attg add: Pt is 56 yo M with h/o alcohol abuse admit with ? hematemesis, ascites. Pt reports 1 month h/o of vomiting of coffee ground material. He reports abd distention for [address] on imaging showed marked ascites. Hgb 15 --> 10, BUn WNL, MCV 102, transaminases WNL, plts WNL albumin 1.8. F/u studies from tap, r/o PVT. Echo. UA and urine prot/creat r/o nephrosis, given marked hypoalbuminemia Begin diuretics - lasix 40 + aldactone 100 mg. Likely esophagitis is a cause of bleeding, plan EGD tomorrow. Oral twice daily PPI. History of Present Illness Reason for Consultation: upper gi bleed Requesting Physician: Albert Attending Physician: Festus Price MD History of Present Illness 56 year old male with history of cirrhosis on imaging, ETOH abuse, depression others below admitted through the ED w/ chest pain, nausea/vomiting - GI asked to evaluate for report of hematemesis. He is a poor historian. Suggestst hat he has had upper abd pain/pressure nausea/vomiting x 1 week or so. He had seen intermittent small volume coffee ground appearing emesis. In the ED it was reported he had olu colored emesis. Pt does not recall this and thought his emesis was green. Today, no pain, further vomiting. His HGB is 14. BUN 6 CTAP 2021: Large volume abdominal and pelvic ascites.Suspected cirrhosis. Suboptimal evaluation of the liver on this unenhanced exam. Distal esophageal wall thickening which is nonspecific but may reflect esophagitis. Trace adjacent stranding and fluid. Several mildly enlarged upper abdominal lymph nodes which are nonspecific although may be related to liver disease. Allergies Allergy/AdvReac Type Severity Reaction Status Date / Time No Known Allergies Allergy Verified 01/25/22 16:26 Home Medications Medication Instructions Recorded Confirmed Type No Known Home Medications 01/25/22 01/25/22 History Patient History Medical History (Updated 01/26/22 @ 08:49 by RHEA Vieyra) Abnormal LFTs Alcohol abuse Alcoholic hepatitis Back pain Depression Failure to thrive Reflux esophagitis Seizure Urinary retention Surgical History H/O rotator cuff surgery Family History Mother Diabetes Father Diabetes Social History Smoking Status: Current every day smoker Tobacco Type: Cigarettes Hx Alcohol Use: Yes Alcohol type: beer Alcohol Intake Frequency: 4 or More x per/Week Alcohol Intake Frequency Comment: 6 pack per day Hx Substance Use: No Preferred Language: [place] Communication Ability: Effective 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 Beliefs That Will Affect Care: None Current Living Situation: Family Other Information That Helps Us Care for You: No Feels Safe at Home: Yes Safety Concerns: Feels Safe At This Time Assistive Devices: None Review of Systems Review of Systems: All systems reviewed & are unremarkable except as noted in HPI & below Physical Exam Constitutional: WD/WN, vitals as above Neck: trachea midline, no thyromegaly Respiratory: normal respiratory effort, lungs clear to auscultation Cardiovascular: Rate/Rhythm: regular rate and regular rhythm Gastrointestinal (Abdomen): normal bowel sounds, soft, nontender, no hepatosplenomegaly Skin: no rashes, warm and dry Results & Data ([facility]) Vital Signs (Past 12 Hours) Vital Signs Temp Pulse Pulse Resp BP Pulse Ox 01/26/22 07:55 97/63 L 01/26/22 07:28 81 01/26/22 07:20 36.8 C 75 18 90 01/26/22 03:46 36.5 C 78 18 95/61 L 93 01/25/22 23:35 109 H 01/25/22 22:20 37.1 C 116 H 18 131/75 95 Laboratory Results 01/26/22 01/26/22 01/26/22 Range/Units 06:56 06:56 06:56 WBC (4.8-10.8) K/uL RBC (4.7-6.1) M/uL Hgb (14.0-18.0) g/dL Hct (42-52) % MCV (80-100) fL MCH (25-34) pg MCHC (32-36) g/dL RDW Std Deviation (36.4-46.3) fL RDW Coeff of Chrissy (11.5-14.5) % Plt Count (130-400) K/uL MPV (7.4-10.4) fL Immature Gran % (Auto) % Neut % (Auto) % Lymph % (Auto) % Amelia % (Auto) % Eos % (Auto) % Baso % (Auto) % Neut # (Auto) (1.4-6.5) K/uL Lymph # (Auto) (1.2-3.4) K/uL Amelia # (Auto) (0.11-0.59) K/uL Eos # (Auto) (0-0.5) K/uL Baso # (Auto) (0-0.2) K/uL Immature Gran # (Auto) (0.00-0.02) K/uL PT Pending (9.0-12.0) Seconds INR Pending (0.9-1.1) APTT (21.0-31.0) Seconds PTT Ratio Sodium 140 (136-145) mmol/L Potassium 3.3 L Chloride 110 H (98-107) mmol/L Carbon Dioxide 25 (21-32) mmol/L Anion Gap 5 (3-11) BUN 6 (6-23) mg/dl Creatinine 0.80 (0.6-1.4) mg/dl Est Cr Clr Drug Dosing 107.2 ml/min Est GFR ( Amer) 114.1 ml/min Est GFR (Non-Af Amer) 98.5 ml/min BUN/Creatinine Ratio 7.5 L (10-20) Glucose 117 H (70-99(Fasting)) mg/dl Calcium 7.7 L (8.5-10.1) mg/dl Magnesium 1.8 (1.7-2.4) mg/dl Total Bilirubin 1.0 (0.2-1.0) mg/dl Direct Bilirubin AST 16 ALT 7 (7-52) U/L Alkaline Phosphatase 45 (34-104) U/L Troponin I High Sens (0-20) pg/ml Total Protein 5.4 L D (6.0-8.3) gm/dl Albumin 1.8 L (3.4-5.0) gm/dl Globulin 3.6 (2.5-4.0) gm/dl Albumin/Globulin Ratio 0.5 L (0.9-2) Lipase (11-82) U/L Urine Color Urine Appearance (Clear) Urine pH (4.5-7.5) Ur Specific [place] (1.000-1.030) Urine Protein (Negative) Urine Glucose (UA) (Negative) Urine Ketones (Negative) Urine Blood (Negative) Urine Nitrite (Negative) Urine Bilirubin (Negative) Urine Urobilinogen (Negative) Ur Leukocyte Esterase (Negative) Urine Opiates Screen (Neg) Ur Methadone, Qual (Neg) Urine Barbiturates (Neg) Ur Phencyclidine (PCP) (Neg) U Amphetamin/Meth Scrn (Neg) MDMA (Ecstasy) Screen (Neg) U Benzodiazepines Scrn (Neg) Ur Cocaine Metabolite (Neg) U Marijuana (THC) Screen (Neg) Ethyl Alcohol mg/dL (<10.0) mg/dl Hepatitis C Ab (EIA) Pending Hep C Ab Signal/Cutoff Pending SARS-CoV-2, RNA, NAAT (NEGATIVE) 01/26/22 01/26/22 01/26/22 Range/Units 06:56 03:19 03:19 WBC Pending (4.8-10.8) K/uL RBC Pending (4.7-6.1) M/uL Hgb Pending (14.0-18.0) g/dL Hct Pending (42-52) % MCV Pending (80-100) fL MCH Pending (25-34) pg MCHC Pending (32-36) g/dL RDW Std Deviation (36.4-46.3) fL RDW Coeff of Chrissy (11.5-14.5) % Plt Count Pending (130-400) K/uL MPV (7.4-10.4) fL Immature Gran % (Auto) % Neut % (Auto) % Lymph % (Auto) % Amelia % (Auto) % Eos % (Auto) % Baso % (Auto) % Neut # (Auto) (1.4-6.5) K/uL Lymph # (Auto) (1.2-3.4) K/uL Amelia # (Auto) (0.11-0.59) K/uL Eos # (Auto) (0-0.5) K/uL Baso # (Auto) (0-0.2) K/uL Immature Gran # (Auto) (0.00-0.02) K/uL PT (9.0-12.0) Seconds INR (0.9-1.1) APTT (21.0-31.0) Seconds PTT Ratio Sodium (136-145) mmol/L Potassium Chloride (98-107) mmol/L Carbon Dioxide (21-32) mmol/L Anion Gap (3-11) BUN (6-23) mg/dl Creatinine (0.6-1.4) mg/dl Est Cr Clr Drug Dosing ml/min Est GFR ( Amer) ml/min Est GFR (Non-Af Amer) ml/min BUN/Creatinine Ratio (10-20) Glucose (70-99(Fasting)) mg/dl Calcium (8.5-10.1) mg/dl Magnesium (1.7-2.4) mg/dl Total Bilirubin (0.2-1.0) mg/dl Direct Bilirubin AST ALT (7-52) U/L Alkaline Phosphatase (34-104) U/L Troponin I High Sens (0-20) pg/ml Total Protein (6.0-8.3) gm/dl Albumin (3.4-5.0) gm/dl Globulin (2.5-4.0) gm/dl Albumin/Globulin Ratio (0.9-2) Lipase (11-82) U/L Urine Color Yellow Urine Appearance Clear (Clear) Urine pH 5.0 (4.5-7.5) Ur Specific [place] 1.014 (1.000-1.030) Urine Protein Negative (Negative) Urine Glucose (UA) Negative (Negative) Urine Ketones Negative (Negative) Urine Blood Negative (Negative) Urine Nitrite Negative (Negative) Urine Bilirubin Negative (Negative) Urine Urobilinogen Negative (Negative) Ur Leukocyte Esterase Negative (Negative) Urine Opiates Screen Neg (Neg) Ur Methadone, Qual Neg (Neg) Urine Barbiturates Neg (Neg) Ur Phencyclidine (PCP) Neg (Neg) U Amphetamin/Meth Scrn Neg (Neg) MDMA (Ecstasy) Screen Neg (Neg) U Benzodiazepines Scrn Neg (Neg) Ur Cocaine Metabolite Neg (Neg) U Marijuana (THC) Screen Neg (Neg) Ethyl Alcohol mg/dL (<10.0) mg/dl Hepatitis C Ab (EIA) Hep C Ab Signal/Cutoff SARS-CoV-2, RNA, NAAT (NEGATIVE) 01/25/22 01/25/22 01/25/22 Range/Units 20:31 17:21 17:21 WBC (4.8-10.8) K/uL RBC (4.7-6.1) M/uL Hgb (14.0-18.0) g/dL Hct (42-52) % MCV (80-100) fL MCH (25-34) pg MCHC (32-36) g/dL RDW Std Deviation (36.4-46.3) fL RDW Coeff of Chrissy (11.5-14.5) % Plt Count (130-400) K/uL MPV (7.4-10.4) fL Immature Gran % (Auto) % Neut % (Auto) % Lymph % (Auto) % Amelia % (Auto) % Eos % (Auto) % Baso % (Auto) % Neut # (Auto) (1.4-6.5) K/uL Lymph # (Auto) (1.2-3.4) K/uL Amelia # (Auto) (0.11-0.59) K/uL Eos # (Auto) (0-0.5) K/uL Baso # (Auto) (0-0.2) K/uL Immature Gran # (Auto) (0.00-0.02) K/uL PT (9.0-12.0) Seconds INR (0.9-1.1) APTT (21.0-31.0) Seconds PTT Ratio Sodium (136-145) mmol/L Potassium 3.2 L Chloride (98-107) mmol/L Carbon Dioxide (21-32) mmol/L Anion Gap (3-11) BUN (6-23) mg/dl Creatinine (0.6-1.4) mg/dl Est Cr Clr Drug Dosing ml/min Est GFR ( Amer) ml/min Est GFR (Non-Af Amer) ml/min BUN/Creatinine Ratio (10-20) Glucose (70-99(Fasting)) mg/dl Calcium (8.5-10.1) mg/dl Magnesium (1.7-2.4) mg/dl Total Bilirubin (0.2-1.0) mg/dl Direct Bilirubin 0.4 H AST 24 ALT (7-52) U/L Alkaline Phosphatase (34-104) U/L Troponin I High Sens (0-20) pg/ml Total Protein (6.0-8.3) gm/dl Albumin (3.4-5.0) gm/dl Globulin (2.5-4.0) gm/dl Albumin/Globulin Ratio (0.9-2) Lipase (11-82) U/L Urine Color Urine Appearance (Clear) Urine pH (4.5-7.5) Ur Specific [place] (1.000-1.030) Urine Protein (Negative) Urine Glucose (UA) (Negative) Urine Ketones (Negative) Urine Blood (Negative) Urine Nitrite (Negative) Urine Bilirubin (Negative) Urine Urobilinogen (Negative) Ur Leukocyte Esterase (Negative) Urine Opiates Screen (Neg) Ur Methadone, Qual (Neg) Urine Barbiturates (Neg) Ur Phencyclidine (PCP) (Neg) U Amphetamin/Meth Scrn (Neg) MDMA (Ecstasy) Screen (Neg) U Benzodiazepines Scrn (Neg) Ur Cocaine Metabolite (Neg) U Marijuana (THC) Screen (Neg) Ethyl Alcohol mg/dL < 10.0 (<10.0) mg/dl Hepatitis C Ab (EIA) Hep C Ab Signal/Cutoff SARS-CoV-2, RNA, NAAT NEGATIVE (NEGATIVE) 01/25/22 01/25/22 01/25/22 Range/Units 16:50 16:50 16:50 WBC 12.55 H (4.8-10.8) K/uL RBC 4.27 L (4.7-6.1) M/uL Hgb 14.4 (14.0-18.0) g/dL Hct 42.9 (42-52) % MCV 100.5 H (80-100) fL MCH 33.7 (25-34) pg MCHC 33.6 (32-36) g/dL RDW Std Deviation 52.8 H (36.4-46.3) fL RDW Coeff of Chrissy 14.5 (11.5-14.5) % Plt Count 350 (130-400) K/uL MPV 10.8 H (7.4-10.4) fL Immature Gran % (Auto) 0.2 % Neut % (Auto) 78.0 % Lymph % (Auto) 9.6 % Amelia % (Auto) 11.6 % Eos % (Auto) 0.4 % Baso % (Auto) 0.2 % Neut # (Auto) 9.79 H (1.4-6.5) K/uL Lymph # (Auto) 1.21 (1.2-3.4) K/uL Amelia # (Auto) 1.45 H (0.11-0.59) K/uL Eos # (Auto) 0.05 (0-0.5) K/uL Baso # (Auto) 0.03 (0-0.2) K/uL Immature Gran # (Auto) 0.02 (0.00-0.02) K/uL PT 12.2 H (9.0-12.0) Seconds INR 1.2 H (0.9-1.1) APTT 24.5 (21.0-31.0) Seconds PTT Ratio 0.9 Sodium 139 (136-145) mmol/L Potassium TNP Chloride 104 (98-107) mmol/L Carbon Dioxide 23 (21-32) mmol/L Anion Gap 12 H (3-11) BUN 6 (6-23) mg/dl Creatinine 0.68 (0.6-1.4) mg/dl Est Cr Clr Drug Dosing 126.1 ml/min Est GFR ( Amer) 122.0 ml/min Est GFR (Non-Af Amer) 105.3 ml/min BUN/Creatinine Ratio 8.8 L (10-20) Glucose 118 H (70-99(Fasting)) mg/dl Calcium 8.8 (8.5-10.1) mg/dl Magnesium (1.7-2.4) mg/dl Total Bilirubin 1.2 H (0.2-1.0) mg/dl Direct Bilirubin TNP AST TNP ALT 11 (7-52) U/L Alkaline Phosphatase 61 (34-104) U/L Troponin I High Sens 5.6 (0-20) pg/ml Total Protein 7.7 (6.0-8.3) gm/dl Albumin 2.5 L (3.4-5.0) gm/dl Globulin 5.2 H (2.5-4.0) gm/dl Albumin/Globulin Ratio 0.5 L (0.9-2) Lipase 36 (11-82) U/L Urine Color Urine Appearance (Clear) Urine pH (4.5-7.5) Ur Specific [place] (1.000-1.030) Urine Protein (Negative) Urine Glucose (UA) (Negative) Urine Ketones (Negative) Urine Blood (Negative) Urine Nitrite (Negative) Urine Bilirubin (Negative) Urine Urobilinogen (Negative) Ur Leukocyte Esterase (Negative) Urine Opiates Screen (Neg) Ur Methadone, Qual (Neg) Urine Barbiturates (Neg) Ur Phencyclidine (PCP) (Neg) U Amphetamin/Meth Scrn (Neg) MDMA (Ecstasy) Screen (Neg) U Benzodiazepines Scrn (Neg) Ur Cocaine Metabolite (Neg) U Marijuana (THC) Screen (Neg) Ethyl Alcohol mg/dL (<10.0) mg/dl Hepatitis C Ab (EIA) Hep C Ab Signal/Cutoff SARS-CoV-2, RNA, NAAT (NEGATIVE)
[2022-01-26 08:54] LABS: INR 1.3 (0.9-1.1); Prothrombin Time 13.5 Seconds (9.0-12.0)
--- NOTE | 2022-01-26 09:12 | Electrocardiogram Report ---
Test Reason : Blood Pressure : / mmHG Vent. Rate : 131 BPM Atrial Rate : 131 BPM P-R Int : 140 ms QRS Dur : 084 ms QT Int : 336 ms P-R-T Axes : 014 -34 070 degrees QTc Int : 496 ms Poor data quality, interpretation may be adversely affected Sinus tachycardia Left axis deviation Inferior infarct , age undetermined Possible Anterior infarct , age undetermined Abnormal ECG When compared with ECG of 01-SEP-2021 23:55, Vent. rate has increased BY 56 BPM Questionable change in QRS duration Borderline criteria for Anterior infarct are now Present Confirmed by Mike Meneses ([id number]) on 01/26/2022 9:11:43 AM Referred By: REFERRED SELF Confirmed By:Jaswant Meneses
[2022-01-26] MEDS ORDERED: ALBUMIN 25% 100 mL 25 GM/100 ML VIAL IV ONE ×3 (09:30→23:49)
[2022-01-26 10:09] LABS: Hemoglobin 10.4 g/dL (14.0-18.0); Mean Corpuscular Hgb Conc 32.5 g/dL (32-36); Mean Corpuscular Volume 101.6 fL (80-100); Mean Platelet Volume 10.4 fL (7.4-10.4); Platelet Count 321 K/uL (130-400); RDW Coefficient of Variation 14.6 % (11.5-14.5); RDW Standard Deviation 53.7 fL (36.4-46.3); Red Blood Count 3.15 M/uL (4.7-6.1)
--- NOTE | 2022-01-26 10:32 | Ultrasound Report ---
ULTRASOUND GUIDED DIAGNOSTIC AND THERAPEUTIC PARACENTESIS CLINICAL HISTORY: decompensated cirrhosis with ascites COMPARISON STUDY: CT of the abdomen and pelvis January 25, 2022. PROCEDURE: The risks, benefits, and alternatives to the procedure were discussed with the patient inc luding the risk of bleeding, infection and injury to adjacent structures. The patient agreed to the procedure and informed written consent was obtained. Following real-time ultrasound localization, the skin of the right lower quadrant was prepped and draped. Following local anesthesia with Xylocaine, the sheath paracentesis needle was inserted and approximately 5 liters of straw-colored fluid was rem dustin by vacuum suction. The patient tolerated the procedure well and no immediate complications were evident. IMPRESSION: Ultrasound-guided paracentesis with removal of 5 liters of ascites. 1 L of ascites was s ent to the laboratory for analysis as ordered. ACT 112: Negative or not required by law. Electronically signed by: William Anderson M.D. 01/26/2022 10:30 AM
[2022-01-26] MEDS: NICOTINE 21 MG/24 HR TDSY TD SCH (10:43)
--- NOTE | 2022-01-26 10:46 | Ultrasound Report ---
US duplex portal hepatic veins CLINICAL HISTORY: Cirrhosis. Evaluate for portal vein thrombosis. COMPARISON STUDY: CT of the abdomen and pelvis January 25, 2022. TECHNIQUE: Color and duplex Doppler sonography of the major hepatic vessels was performed. FINDINGS: Hepatic echogenicity is increased. There is slight nodularity of the liver surface indicati ve of cirrhosis. Please note that a dedicated hepatic ultrasound was not performed. The main, left an d right portal veins are patent with appropriately directed flow. However, the right portal vein was partially obscured. Hepatic veins appear patent. Nonshadowing echogenic material within the gallbladd er is noted. There is no gallbladder wall thickening. IMPRESSION: 1. Exam mildly compromised but main portal vein patent with appropriately directed flow. 2. Cirrhosis. Perihepatic ascites. 3. Sludge or nonshadowing stones within the gallbladder. No evidence for acute cholecystitis. ACT 112: Negative or not required by law. Electronically signed by: William Anderson M.D. 01/26/2022 10:44 AM
[2022-01-26 10:50] LABS: Albumin Peritoneal Fluid < 1.5 gm/dl; Total Protein Peritoneal Fluid < 3.0 gm/dl
[2022-01-26 11:33] LABS: Appearance Peritoneal Fluid CLEAR; Basophils, Fluid 0 %; Color Peritoneal Fluid PALE YELLOW; Eosinophils, Fluid 2 %; Lymphocytes, Fluid 24 %; Mono,Macrophage,Mesothelial 59 %; Neutrophils, Fluid 15 %; RBC Peritoneal Fluid (A) < 3000 /uL; WBC Peritoneal Fluid (A) 145 /ul (0-300)
[2022-01-26] MEDS ORDERED: POTASSIUM CHLORIDE CRTAB 20 MEQ TABCR PO STA ×2 (13:19→23:50)
[2022-01-26 14:22] LABS: Hematocrit (blood only) 31.4 % (42-52); Hemoglobin 9.9 g/dL (14.0-18.0)
[2022-01-26] MEDS: MELATONIN 3 MG TAB PO PRN ×2 (20:06→21:29)
[2022-01-26] MEDS ORDERED: MAGNESIUM SULFATE / D5W 1 GM/100 ML BAG IV ONE (23:50)
[2022-01-27 00:27] LABS: BUN Creatinine Ratio 6.1 (10-20); Calcium 7.6 mg/dl (8.5-10.1); Creatinine Clr Calc Pharmacy 104.6 ml/min; Est GFR (Non-African American) 97.5 ml/min; Potassium 3.3 mmol/L (3.5-5.1)
[2022-01-27] MEDS ORDERED: POTASSIUM CHLORIDE CRTAB 20 MEQ TABCR PO STA (00:47)
[2022-01-27 01:38] LABS: Troponin I High Sensitivity 6.9 pg/ml (0-20)
[2022-01-27 01:42] LABS: Magnesium 1.8 mg/dl (1.7-2.4)
[2022-01-27 02:20] LABS: Hematocrit (blood only) 28.9 % (42-52); Hemoglobin 9.4 g/dL (14.0-18.0)
[2022-01-27] MEDS: cefTRIAXone SODIUM 1,000 MG in DEXTROSE 5% 50 ML IV SCH ×2 (02:32→23:25)
[2022-01-27 03:18] LABS: Partial Thromboplastin Ratio 1.3; Partial Thromboplastin Time 36.1 Seconds (21.0-31.0)
[2022-01-27] MEDS ORDERED: ALBUMIN 25% 100 mL 25 GM/100 ML VIAL IV ONE ×2 (06:00→15:30)
[2022-01-27 07:29] LABS: Hematocrit (blood only) 30.9 % (42-52); Hemoglobin 10.1 g/dL (14.0-18.0); Mean Corpuscular Hemoglobin 33.3 pg (25-34); Mean Corpuscular Hgb Conc 32.7 g/dL (32-36); Mean Platelet Volume 10.3 fL (7.4-10.4); Platelet Count 265 K/uL (130-400); RDW Coefficient of Variation 14.6 % (11.5-14.5); RDW Standard Deviation 54.3 fL (36.4-46.3); Red Blood Count 3.03 M/uL (4.7-6.1); White Blood Count 7.34 K/uL (4.8-10.8)
[2022-01-27 08:12] LABS: Albumin Level 2.4 gm/dl (3.4-5.0); BUN Creatinine Ratio 6.1 (10-20); Bilirubin,Total 1.1 mg/dl (0.2-1.0); Calcium 7.8 mg/dl (8.5-10.1); Creatinine Clr Calc Pharmacy 104.6 ml/min; Est GFR (Non-African American) 97.5 ml/min; Globulin 2.5 gm/dl (2.5-4.0); Magnesium 2.1 mg/dl (1.7-2.4); Phosphorus 2.8 mg/dl (2.5-4.9); Potassium 3.7 mmol/L (3.5-5.1); Total Protein 4.9 gm/dl (6.0-8.3)
[2022-01-27] MEDS: NICOTINE 21 MG/24 HR TDSY TD SCH (08:16)
--- NOTE | 2022-01-27 09:02 | Gastroenterology Progress Note ---
Date of Service January 27, 2022 Assessment & Plan (1) Coffee ground emesis: (2) Cirrhosis: Plan: 56 year old male with history of ETOH abuse, ongoing use, admitted with nausea/vomiting, report of coffee ground emesis at ?hematemesis. Imaging concerning for both cirrhosis and esophagitis. S/P paracentesis with 5L off, started lasix/Aldactone, still with moderate ascites, to go for repeat para this AM. Cytology pending, fluid studies not necessarily indicative of portal HTN NPO Repeat paracentesis Continue [id number] Consider urinary studies to rule out nephrosis EGD today Oral twice daily PPI ETOH withdrawal protocol ETOH cessation Diagnosed and therapeutic paracentesis OP Follow up to establish for cirrhosis management No NSAIDs Less than 2g sodium Less than 2g tylenol Thank you for allowing us to participate in the care of this patient. Please call with any acute changes, questions or concerns. Please see addendum below with additional recommendation from my supervising physician. Admission and Anticipated Discharge Date Admission Date: January 25, 2022 Supervising Physician Co-Signing Physician Notes Attg add: I interviewed and examined pt, reviewed chart and labs. pt without complaints. EGD today. Subjective Pt was seen and evaluated, chart reviewed. EGD yesterday postponed - anesthesia recommend paracentesis prior to. S/P para yesterday, 5L off, large volume residual. To go for repeat para this AM. Feels well, tired. Denies abd pain, nausea, vomiting No further report of coffee ground emesis, hematemesis. No melena or BRBPR. Paracentesis 2021: 5L off Fluid studies 2021: no SBP, SAAG 0.3 indicating portal HTN not necessarily cause of ascites, low total protein, cytology pending Hepatic Duplex 2021: Exam mildly compromised but main portal vein patent with appropriately directed flow.. Cirrhosis. Perihepatic ascites. Sludge or nonshadowing stones within the gallbladder. No evidence for acute cholecystitis. CTAP 2021:Large volume abdominal and pelvic ascites.Suspected cirrhosis. Suboptimal evaluation of the liver on this unenhanced exam. Distal esophageal wall thickening which is nonspecific but may reflect esophagitis. Trace adjacent stranding and fluid. Several mildly enlarged upper abdominal lymph nodes which are nonspecific although may be related to liver disease. Review of Systems Review of Systems: All systems reviewed & are unremarkable except as noted in HPI & below Physical Exam Constitutional: WD/WN, vitals as above Respiratory: normal respiratory effort, lungs clear to auscultation Cardiovascular: RRR, no murmur, no edema Gastrointestinal (Abdomen): normal bowel sounds, soft, nontender, no hepatosplenomegaly large volume ascites Skin: no rashes, warm and dry Results & Data ([facility]) Vital Signs (Past 12 Hours) Vital Signs Temp Pulse Pulse Resp BP Pulse Ox 01/27/22 08:05 36.6 C 70 18 106/72 93 01/27/22 08:00 72 01/27/22 03:00 36.6 C 69 16 91/56 L 91 01/27/22 00:39 71 16 103/69 93 01/26/22 23:00 36.6 C 73 73 16 88/52 L 94 Laboratory Results 01/27/22 01/27/22 01/27/22 Range/Units 07:20 07:02 07:02 WBC 7.34 (4.8-10.8) K/uL RBC 3.03 L (4.7-6.1) M/uL Hgb 10.1 L (14.0-18.0) g/dL Hct 30.9 L (42-52) % MCV 102.0 H (80-100) fL MCH 33.3 (25-34) pg MCHC 32.7 (32-36) g/dL RDW Std Deviation 54.3 H (36.4-46.3) fL RDW Coeff of Chrissy 14.6 H (11.5-14.5) % Plt Count 265 (130-400) K/uL MPV 10.3 (7.4-10.4) fL APTT (21.0-31.0) Seconds PTT Ratio Sodium 138 (136-145) mmol/L Potassium 3.7 (3.5-5.1) mmol/L Chloride 109 H (98-107) mmol/L Carbon Dioxide 26 (21-32) mmol/L Anion Gap 3 (3-11) BUN 5 L (6-23) mg/dl Creatinine 0.82 (0.6-1.4) mg/dl Est Cr Clr Drug Dosing 104.6 ml/min Est GFR ( Amer) 113.0 ml/min Est GFR (Non-Af Amer) 97.5 ml/min BUN/Creatinine Ratio 6.1 L (10-20) Glucose 121 H (70-99(Fasting)) mg/dl Lactate (0.4-2.0) mmol/L Calcium 7.8 L (8.5-10.1) mg/dl Phosphorus 2.8 (2.5-4.9) mg/dl Magnesium 2.1 (1.7-2.4) mg/dl Total Bilirubin 1.1 H (0.2-1.0) mg/dl AST 11 L (13-39) U/L ALT 5 L (7-52) U/L Alkaline Phosphatase 31 L (34-104) U/L Troponin I High Sens (0-20) pg/ml Total Protein 4.9 L (6.0-8.3) gm/dl Albumin 2.4 L (3.4-5.0) gm/dl Globulin 2.5 (2.5-4.0) gm/dl Albumin/Globulin Ratio 1.0 (0.9-2) Ur Random Creatinine Pending U Random Total Protein Pending Protein/Creatinin Ratio Pending Fluid Neutrophils % % Fluid Lymphocytes % % Fluid Eosinophils % % Fluid Basophils % % Fluid Meso/Macro/Placer % % Fluid Comment Peritoneal Color Peritoneal Appearance Peritoneal WBC (0-300) /ul Peritoneal RBC /uL Peritoneal Tot Protein gm/dl Peritoneal Albumin gm/dl 01/27/22 01/27/22 01/26/22 Range/Units 01:57 01:57 Unknown WBC (4.8-10.8) K/uL RBC (4.7-6.1) M/uL Hgb 9.4 L (14.0-18.0) g/dL Hct 28.9 L (42-52) % MCV (80-100) fL MCH (25-34) pg MCHC (32-36) g/dL RDW Std Deviation (36.4-46.3) fL RDW Coeff of Chrissy (11.5-14.5) % Plt Count (130-400) K/uL MPV (7.4-10.4) fL APTT 36.1 H (21.0-31.0) Seconds PTT Ratio 1.3 Sodium (136-145) mmol/L Potassium (3.5-5.1) mmol/L Chloride (98-107) mmol/L Carbon Dioxide (21-32) mmol/L Anion Gap (3-11) BUN (6-23) mg/dl Creatinine (0.6-1.4) mg/dl Est Cr Clr Drug Dosing ml/min Est GFR ( Amer) ml/min Est GFR (Non-Af Amer) ml/min BUN/Creatinine Ratio (10-20) Glucose (70-99(Fasting)) mg/dl Lactate (0.4-2.0) mmol/L Calcium (8.5-10.1) mg/dl Phosphorus (2.5-4.9) mg/dl Magnesium (1.7-2.4) mg/dl Total Bilirubin (0.2-1.0) mg/dl AST (13-39) U/L ALT (7-52) U/L Alkaline Phosphatase (34-104) U/L Troponin I High Sens (0-20) pg/ml Total Protein (6.0-8.3) gm/dl Albumin (3.4-5.0) gm/dl Globulin (2.5-4.0) gm/dl Albumin/Globulin Ratio (0.9-2) Ur Random Creatinine U Random Total Protein Protein/Creatinin Ratio Fluid Neutrophils % 15 % Fluid Lymphocytes % 24 % Fluid Eosinophils % 2 % Fluid Basophils % 0 % Fluid Meso/Macro/Placer % 59 % Fluid Comment Peritoneal Color PALE YELLOW Peritoneal Appearance CLEAR Peritoneal WBC 145 (0-300) /ul Peritoneal RBC < 3000 /uL Peritoneal Tot Protein gm/dl Peritoneal Albumin gm/dl 01/26/22 01/26/22 01/26/22 Range/Units Unknown 23:58 23:58 WBC (4.8-10.8) K/uL RBC (4.7-6.1) M/uL Hgb (14.0-18.0) g/dL Hct (42-52) % MCV (80-100) fL MCH (25-34) pg MCHC (32-36) g/dL RDW Std Deviation (36.4-46.3) fL RDW Coeff of Chrissy (11.5-14.5) % Plt Count (130-400) K/uL MPV (7.4-10.4) fL APTT (21.0-31.0) Seconds PTT Ratio Sodium (136-145) mmol/L Potassium (3.5-5.1) mmol/L Chloride (98-107) mmol/L Carbon Dioxide (21-32) mmol/L Anion Gap (3-11) BUN (6-23) mg/dl Creatinine (0.6-1.4) mg/dl Est Cr Clr Drug Dosing ml/min Est GFR ( Amer) ml/min Est GFR (Non-Af Amer) ml/min BUN/Creatinine Ratio (10-20) Glucose (70-99(Fasting)) mg/dl Lactate 1.3 (0.4-2.0) mmol/L Calcium (8.5-10.1) mg/dl Phosphorus (2.5-4.9) mg/dl Magnesium 1.8 (1.7-2.4) mg/dl Total Bilirubin (0.2-1.0) mg/dl AST (13-39) U/L ALT (7-52) U/L Alkaline Phosphatase (34-104) U/L Troponin I High Sens 6.9 (0-20) pg/ml Total Protein (6.0-8.3) gm/dl Albumin (3.4-5.0) gm/dl Globulin (2.5-4.0) gm/dl Albumin/Globulin Ratio (0.9-2) Ur Random Creatinine U Random Total Protein Protein/Creatinin Ratio Fluid Neutrophils % % Fluid Lymphocytes % % Fluid Eosinophils % % Fluid Basophils % % Fluid Meso/Macro/Placer % % Fluid Comment Peritoneal Color Peritoneal Appearance Peritoneal WBC (0-300) /ul Peritoneal RBC /uL Peritoneal Tot Protein < 3.0 gm/dl Peritoneal Albumin < 1.5 gm/dl 01/26/22 01/26/22 01/26/22 Range/Units 23:58 14:09 06:56 WBC 12.70 H (4.8-10.8) K/uL RBC 3.15 L (4.7-6.1) M/uL Hgb 9.9 L 10.4 L D (14.0-18.0) g/dL Hct 31.4 L 32.0 L (42-52) % MCV 101.6 H (80-100) fL MCH 33.0 (25-34) pg MCHC 32.5 (32-36) g/dL RDW Std Deviation 53.7 H (36.4-46.3) fL RDW Coeff of Chrissy 14.6 H (11.5-14.5) % Plt Count 321 (130-400) K/uL MPV 10.4 (7.4-10.4) fL APTT (21.0-31.0) Seconds PTT Ratio Sodium 137 (136-145) mmol/L Potassium 3.3 L (3.5-5.1) mmol/L Chloride 108 H (98-107) mmol/L Carbon Dioxide 25 (21-32) mmol/L Anion Gap 4 (3-11) BUN 5 L (6-23) mg/dl Creatinine 0.82 (0.6-1.4) mg/dl Est Cr Clr Drug Dosing 104.6 ml/min Est GFR ( Amer) 113.0 ml/min Est GFR (Non-Af Amer) 97.5 ml/min BUN/Creatinine Ratio 6.1 L (10-20) Glucose 142 H (70-99(Fasting)) mg/dl Lactate (0.4-2.0) mmol/L Calcium 7.6 L (8.5-10.1) mg/dl Phosphorus (2.5-4.9) mg/dl Magnesium (1.7-2.4) mg/dl Total Bilirubin (0.2-1.0) mg/dl AST (13-39) U/L ALT (7-52) U/L Alkaline Phosphatase (34-104) U/L Troponin I High Sens (0-20) pg/ml Total Protein (6.0-8.3) gm/dl Albumin (3.4-5.0) gm/dl Globulin (2.5-4.0) gm/dl Albumin/Globulin Ratio (0.9-2) Ur Random Creatinine U Random Total Protein Protein/Creatinin Ratio Fluid Neutrophils % % Fluid Lymphocytes % % Fluid Eosinophils % % Fluid Basophils % % Fluid Meso/Macro/Placer % % Fluid Comment Peritoneal Color Peritoneal Appearance Peritoneal WBC (0-300) /ul Peritoneal RBC /uL Peritoneal Tot Protein gm/dl Peritoneal Albumin gm/dl
[2022-01-27 09:14] LABS: Creatinine Urine Random 252.3 mg/dl; Protein Creatinine Ratio Urine 0.1 (0-0.2); Total Protein Urine Random 36.4 mg/dl (0-11.9)
--- NOTE | 2022-01-27 10:26 | Anesthesiology Consultation ---
Date of Service January 27, 2022 Assessment & Plan Chart Review Chart Review: Acceptable Risk for Surgery Consults Requested none History Surgery Operation Date: 01/26/22 17:15 Proposed Procedures p Esophagogastroduodenoscopy Dr Susanna Multani MD Operation Date: 01/27/22 16:30 Proposed Procedures p Esophagogastroduodenoscopy Dr Susanna Multani MD Height/Weight Height: 5 ft 11 in Weight: 79.9 kg Allergies Allergy/AdvReac Type Severity Reaction Status Date / Time No Known Allergies Allergy Verified 01/25/22 16:26 Medications Home Medications Medication Instructions Recorded Confirmed Last Taken No Known Home Medications 01/25/22 01/25/22 Unknown Active Medications Generic Name Dose Route Start Last Admin Trade Name Freq PRN Reason Stop Dose Admin Al Hydrox/Mg Hydrox/Simethicone 30 ml 01/25/22 22:44 01/25/22 23:03 Aluminum/Magnesium/Simeth (Maalox Max) 30 Ml Udc PO 02/24/22 22:43 30 ml Q6H PRN Administration severe heartburn Folic Acid 1 mg 01/25/22 23:00 01/26/22 10:42 Folic Acid 1 Mg Tab PO 02/24/22 22:59 1 mg QAM DEVON Administration Ceftriaxone Sodium 1,000 mg/ 50 mls @ 100 mls/hr 01/26/22 00:00 01/27/22 03:05 Dextrose IV 02/05/22 00:00 Infused Q24H DEVON Infusion Protocol Melatonin 3 mg 01/26/22 20:01 01/26/22 21:29 Melatonin 3 Mg Tab PO 02/25/22 20:00 3 mg HS PRN Administration Sleep Miscellaneous 1 ea 01/26/22 08:59 01/27/22 08:16 Remove Nicoderm Patch N/A 02/25/22 08:58 1 ea DAILY@[id number] DEVON Administration Nicotine 21 mg 01/26/22 09:00 01/27/22 08:16 Nicotine 21 Mg/24 Hr Tdsy TD 02/25/22 08:59 Not Given QAM DEVON Ondansetron HCl 4 mg 01/25/22 21:56 01/25/22 23:28 Ondansetron Inj 2 Mg/Ml 2 Ml Vial IV 05/19/22 21:55 4 mg Q6H PRN Administration Nausea Propranolol HCl 20 mg 01/25/22 23:00 01/26/22 20:08 Propranolol Hcl 20 Mg Tab PO 02/24/22 22:59 Not Given BID DEVON Thiamine HCl 100 mg 01/25/22 23:00 01/26/22 10:45 Thiamine Hcl 100 Mg Tab PO 02/24/22 22:59 100 mg QAM DEVON Administration NPO Date Last Intake of Fluids: 01/26/22 Time Last Intake of Fluids: 19:00 Date Last Intake of Solids: 01/23/22 Past Medical History Medical History (Updated 01/26/22 @ 08:49 by RHEA Vieyra) Abnormal LFTs Alcohol abuse Alcoholic hepatitis Back pain Depression Failure to thrive Reflux esophagitis Seizure Urinary retention Past Family History Family History Mother Diabetes Father Diabetes Past Surgical History Surgical History H/O rotator cuff surgery Social History Smoking Status: Current every day smoker tobacco type: cigarettes Hx Alcohol Use: Yes Alcohol type: beer Alcohol Intake Frequency Comment: had one beer 3 or more weeks ago Hx Substance Use: No Physical Exam Vital Signs Last Vital Signs Temp 36.3 C L 01/27/22 10:07 Pulse 68 01/27/22 10:07 Resp 16 01/27/22 10:07 BP 104/68 01/27/22 10:07 Pulse Ox 95 01/27/22 10:07 Testing Laboratory Results 01/27/22 07:02 01/27/22 07:02 PT 13.5 Seconds (9.0-12.0) H 01/26/22 06:56 INR 1.3 (0.9-1.1) H 01/26/22 06:56 APTT 36.1 Seconds (21.0-31.0) H 01/27/22 01:57 Urine Color Yellow 01/26/22 03:19 Urine Appearance Clear (Clear) 01/26/22 03:19 Urine pH 5.0 (4.5-7.5) 01/26/22 03:19 Ur Specific [place] 1.014 (1.000-1.030) 01/26/22 03:19 Urine Protein Negative (Negative) 01/26/22 03:19 Urine Glucose (UA) Negative (Negative) 01/26/22 03:19 Urine Ketones Negative (Negative) 01/26/22 03:19 Urine Nitrite Negative (Negative) 01/26/22 03:19 Ur Leukocyte Esterase Negative (Negative) 01/26/22 03:19 01/26/22 Unknown Gram Stain - Final Peritoneal Fluid Aerobic and Anaerobic Culture - Preliminary No growth to date.
--- NOTE | 2022-01-27 10:48 | History & Physical Report ---
Date of Service January 27, 2022 Assessment & Plan Admission and Anticipated Discharge Date Admission Date: January 25, 2022 History of Present Illness Primary Care Provider: David Adler Hematemesis, esophageal thickening on CT CV: RRR Resp: CTA Abd: soft A/P: EGD Allergies Allergy/AdvReac Type Severity Reaction Status Date / Time No Known Allergies Allergy Verified 01/25/22 16:26 Home Medications Medication Instructions Recorded Confirmed Type No Known Home Medications 01/25/22 01/25/22 History Past Med/Surg History Medical History (Updated 01/26/22 @ 08:49 by RHEA Vieyra) Abnormal LFTs Alcohol abuse Alcoholic hepatitis Back pain Depression Failure to thrive Reflux esophagitis Seizure Urinary retention Surgical History H/O rotator cuff surgery Family History Mother Diabetes Father Diabetes Social History Smoking Status: Current every day smoker Tobacco Type: Cigarettes Hx Alcohol Use: Yes Alcohol type: beer Alcohol Intake Frequency: 4 or More x per/Week Alcohol Intake Frequency Comment: 6 pack per day Hx Substance Use: No Preferred Language: Greenlandic Communication Ability: Effective Congressional Assistant Required: No Beliefs That Will Affect Care: None Current Living Situation: Family Other Information That Helps Us Care for You: No Feels Safe at Home: Yes Safety Concerns: Feels Safe At This Time Assistive Devices: None Results & Data Results & Data ([facility]) Vital Signs (Past 12 Hours) Vital Signs Temp Pulse Pulse Pulse Resp BP Pulse Ox 01/27/22 10:07 36.3 C L 68 16 104/68 95 01/27/22 08:05 36.6 C 70 18 106/72 93 01/27/22 08:00 72 01/27/22 03:00 36.6 C 69 16 91/56 L 91 01/27/22 00:39 71 16 103/69 93 01/26/22 23:00 36.6 C 73 73 16 88/52 L 94 Code Status & VTE Plan VTE Prophylaxis Plan VTE Prophylaxis will be ordered: Yes
[2022-01-27] MEDS ORDERED: ONDANSETRON INJ 2 MG/ML 2 ML VIAL ONE (10:57)
[2022-01-27] MEDS ORDERED: GLYCOPYRROLATE 0.2 MG/ML VIAL ONE (10:57)
[2022-01-27] MEDS ORDERED: PROPOFOL IV EMULSION 10 MG/ML 20 ML VIAL IV ONE (10:57)
[2022-01-27] MEDS ORDERED: LIDOCAINE 2% 2 ML VIAL/AMP(20MG/ML) INFIL ONE (10:57)
[2022-01-27] MEDS ORDERED: PHENYLEPHRINE HCL 10 MG/ML VIAL ONE (11:11)
--- NOTE | 2022-01-27 11:11 | Ultrasound Report ---
US paracentesis abd w/image CLINICAL HISTORY: 56 years-old Male with before EGD, up to 10 L off. Cirrhosis with ascites COMPARISON: CT 01/25/2022 PROCEDURE: The procedure was explained to the patient in the care including the benefits and possible risks/complications. The patient gave verbal understanding and written consent was obtained. A time -out was performed prior to the start of the procedure. The patient was placed on the ultrasound table in the supine position. Using ultrasound guidance, an appropriate procedure site in the left lower abdomen was marked. This area was then prepped and drape d in the usual sterile fashion. Local anesthesia was achieved within 1% lidocaine. An 8-[employer] is catheter was then inserted. Approximately 9.5 liters of clear, yellowish fluid was removed for the rapeutic purposes only. The catheter was removed and external pressure was held to achieve hemostasis. A sterile dressing was applied to the procedure site. The patient tolerated the procedure well without immediate complicati ons. IMPRESSION: Successful ultrasound-guided paracentesis with removal of 9.5 L ascitic fluid. ACT 112: Negative or not required by law. The above report was generated using voice recognition software. It may contain grammatical, syntax o r spelling errors. Electronically signed by: Bharat Copeland M.D. 01/27/2022 11:10 AM
--- NOTE | 2022-01-27 11:33 | GI REPORT ---
Patient Name: Mike Bates Procedure Date: 01/27/2022 10:57 AM Date of : 1965 Admit Type: Inpatient Age: 56 Gender: Male Attending MD: Bisi Multani MD Procedure: Upper GI endoscopy Providers: Bisi Multani MD Referring MD: Issac Johnston Md Indications: Vomiting Medicines: See the Anesthesia note for documentation of the administered medications Complications: No immediate complications. Estimated Blood Loss: Estimated blood loss: none. Procedure: Pre-Anesthesia Assessment: - ASA Grade Assessment: III - A patient with severe systemic disease. After obtaining informed consent, the endoscope was passed under direct vision. Throughout the procedure, the patient's blood pressure, pulse, and oxygen saturations were monitored continuously. The Endoscope was introduced through the mouth, and advanced to the third part of duodenum. The upper GI endoscopy was accomplished without difficulty. The patient tolerated the procedure well. Findings: LA Grade D (one or more mucosal breaks involving at least 75% of esophageal circumference) esophagitis with no bleeding was found 30 to 40 cm from the incisors. There was fullness of the GE junction suggestive of grade II varices were found in the lower third of the esophagus. No red mitch signs were present. There was mild portal gastropathy. There were no gastric varices. There was marked nodularity of the duodenal bulb, likely related to portal HTN. This was biopsied. The remainder of the duodenum was normal. Recommendation: - Twice daily PPI. Consider beta josiah. - Discharge patient to home. Bisi Multani M.D. Bisi Multani MD 01/27/2022 11:32:50 AM This report has been signed electronically. Note Initiated On: 01/27/2022 10:57 AM Number of Addenda: 0 I attest to the content of the Intraoperative Record and orders documented therein, exceptions below {[id number]}
--- NOTE | 2022-01-27 11:37 | Anesthesiology Progress Note ---
Date of Service January 27, 2022 Anesthesia Post Procedure Vital Signs Vital Signs: Temp Pulse Pulse Pulse Resp BP Pulse Ox 01/27/22 11:30 74 16 90/51 L 96 01/27/22 11:15 73 16 94/64 L 96 01/27/22 10:07 36.3 C L 68 16 104/68 95 01/27/22 08:05 36.6 C 70 18 106/72 93 01/27/22 08:00 72 01/27/22 03:00 36.6 C 69 16 91/56 L 91 01/27/22 00:39 71 16 103/69 93 01/26/22 23:00 36.6 C 73 73 16 88/52 L 94 01/26/22 19:00 36.7 C 70 18 103/63 96 01/26/22 18:18 67 01/26/22 15:52 36.8 C 68 18 91/57 L 93 01/26/22 12:14 36.5 C 64 19 103/69 98 Pain Intensity Abdomen: Pain Intensity: 7 Transfer of Care Handoff Completed per policy Notes Mental Status: alert / awake / arousable and participated in evaluation Patient Amnestic to Procedure: Yes Nausea / Vomiting: adequately controlled Pain: adequately controlled Airway Patency, RR, SpO2: stable & adequate BP & HR: stable & adequate Hydration State: stable & adequate Anesthetic Complications: no major complications apparent
[2022-01-27] MEDS: FOLIC ACID 1 MG TAB PO SCH (12:30)
[2022-01-27] MEDS: THIAMINE HCL 100 MG TAB PO SCH (12:30)
[2022-01-27] MEDS: PANTOprazole 40 MG TAB PO SCH ×2 (12:30→19:50)
[2022-01-27] MEDS: PROPRANOLOL HCL 20 MG TAB PO SCH ×2 (12:31→19:50)
[2022-01-27] MEDS: FUROSEMIDE 40 MG TAB PO SCH (12:31)
[2022-01-27] MEDS: SPIRONOLACTONE 100 MG TAB PO SCH (12:31)
--- NOTE | 2022-01-27 16:35 | Hospitalist Progress Note ---
Date of Service January 27, 2022 Assessment & Plan (1) Esophageal bleeding: Plan: EGD today shows non bleeding esophageal varices -already on PPI and propranolol (2) Decompensation of cirrhosis of liver: Plan: s/p large volume paracentesis x 2 followed by Albumin 5L removed 01/26 9.5L removed 01/27 -continue lasix 40mg daily. Add spironolactone 25mg daily with hold parameters -low salt diet -follow up with GI outpatient -likely alcoholic cirrhosis (3) Alcohol abuse: Plan: -patient reports last drink was > 1 month ago (4) Chronic back pain: Plan: PT/OT evaluation (5) Urinary retention: Plan: able to spontaneously void , this should also improve after paracentesis. (6) Smoker: Plan: nitocitne patch, encouraged to quit. (7) DVT prophylaxis: Plan: SCDs for now Disposition-- Discharge home tomorrow pending PT evaluation Admission and Anticipated Discharge Date Admission Date: January 25, 2022 Subjective Went for 2nd paracentesis today. Also EGD Patient overall feels well Reports his last alcoholic drink was 1 month ago. Plans to abstain from drinking, declines rehab, plans to return home Physical Exam Physical Exam: Appears older than stated age, no acute distress, non toxic Respiratory: breathing comfortably on room air, no wheezing/rhonchi/rales Cardiovascular: regular rate and rhythm, no murmurs/rubs/gallops Gastrointestinal (Abdomen): soft, non tender Musculoskeletal: trade edema Results & Data Results & Data ([facility]) Vital Signs (Past 12 Hours) Vital Signs Temp Pulse Pulse Pulse Resp BP Pulse Ox 01/27/22 15:34 36.6 C 68 19 116/74 97 01/27/22 15:02 68 01/27/22 13:00 75 20 130/88 97 01/27/22 12:19 74 18 122/72 94 01/27/22 12:01 36.8 C 72 20 110/75 94 01/27/22 11:45 72 16 90/54 L 95 01/27/22 11:30 74 16 90/51 L 96 01/27/22 11:15 73 16 94/64 L 96 01/27/22 10:07 36.3 C L 68 16 104/68 95 01/27/22 08:05 36.6 C 70 18 106/72 93 01/27/22 08:00 72 Laboratory Results Short CBC 01/27/22 01/27/22 Range/Units 01:57 07:02 WBC 7.34 (4.8-10.8) K/uL Hgb 9.4 L 10.1 L (14.0-18.0) g/dL Hct 28.9 L 30.9 L (42-52) % Plt Count 265 (130-400) K/uL BMP 01/26/22 01/27/22 23:58 07:02 Sodium 137 138 Potassium 3.3 L 3.7 Chloride 108 H 109 H Carbon Dioxide 25 26 BUN 5 L 5 L Creatinine 0.82 0.82 Glucose 142 H 121 H Calcium 7.6 L 7.8 L Liver Function 01/27/22 Range/Units 07:02 Total Bilirubin 1.1 H (0.2-1.0) mg/dl AST 11 L (13-39) U/L ALT 5 L (7-52) U/L Alkaline Phosphatase 31 L (34-104) U/L Albumin 2.4 L (3.4-5.0) gm/dl Medications Administered Current Inpatient Medications Acetaminophen (Acetaminophen 500 Mg Tab) 500 mg PO Q6H PRN PRN Reason: Pain or Fever Stop: 02/24/22 21:55 Al Hydrox/Mg Hydrox/Simethicone (Aluminum/Magnesium/Simeth (Maalox Max) 30 Ml Udc) 30 ml PO Q6H PRN PRN Reason: severe heartburn Stop: 02/24/22 22:43 Last Admin: 01/25/22 23:03 Dose: 30 ml Documented by: Folic Acid (Folic Acid 1 Mg Tab) [facility] Stop: 02/24/22 22:59 Last Admin: 01/27/22 12:30 Dose: 1 mg Documented by: Furosemide (Furosemide 40 Mg Tab) [facility] Stop: 02/26/22 08:59 Last Admin: 01/27/22 12:31 Dose: 40 mg Documented by: Ceftriaxone Sodium 1,000 mg/ (Dextrose) 50 mls @ 100 mls/hr IV Q24H [facility]; Protocol Stop: 02/05/22 00:00 Last Infusion: 01/27/22 03:05 Dose: Infused Documented by: Albumin Human (Albumin 25% 100 Ml) 25 gm in 100 mls @ 50 mls/hr IV ONE ONE Stop: 01/27/22 17:29 Last Admin: 01/27/22 15:12 Dose: 50 mls/hr Documented by: Lorazepam (Lorazepam 1 Mg Tab) 1 mg PO ONE PRN; Protocol PRN Reason: EtoH Withdrawal AWSS 6-10 Melatonin (Melatonin 3 Mg Tab) 3 mg PO HS PRN PRN Reason: Sleep Stop: 02/25/22 20:00 Last Admin: 01/26/22 21:29 Dose: 3 mg Documented by: Miscellaneous (Remove Nicoderm Patch) 1 ea N/A DAILY@0859 [facility] Stop: 02/25/22 08:58 Last Admin: 01/27/22 08:16 Dose: 1 ea Documented by: Nicotine (Nicotine 21 Mg/24 Hr Tdsy) 21 mg TD QAM [facility] Stop: 02/25/22 08:59 Last Admin: 01/27/22 08:16 Dose: Not Given Documented by: Ondansetron HCl (Ondansetron Inj 2 Mg/Ml 2 Ml Vial) 4 mg IV Q6H PRN PRN Reason: Nausea Stop: 02/24/22 21:55 Last Admin: 01/25/22 23:28 Dose: 4 mg Documented by: Pantoprazole Sodium (Pantoprazole 40 Mg Tab) 40 mg PO BID [facility] Stop: 02/26/22 08:59 Last Admin: 01/27/22 12:30 Dose: 40 mg Documented by: Polyethylene Glycol (Polyethylene (Miralax) 17 Gm Pack) 17 gm PO DAILY PRN PRN Reason: Constipation Stop: 02/24/22 21:55 Propranolol HCl (Propranolol Hcl 20 Mg Tab) 20 mg PO BID [facility] Stop: 02/24/22 22:59 Last Admin: 01/27/22 12:31 Dose: 20 mg Documented by: Spironolactone (Spironolactone 100 Mg Tab) 100 mg PO QAM [facility] Stop: 02/26/22 08:59 Last Admin: 01/27/22 12:31 Dose: 100 mg Documented by: Thiamine HCl (Thiamine Hcl 100 Mg Tab) 100 mg PO QAM [facility] Stop: 02/24/22 22:59 Last Admin: 01/27/22 12:30 Dose: 100 mg Documented by:
--- NOTE | 2022-01-27 18:08 | Electrocardiogram Report ---
Test Reason : Blood Pressure : / mmHG Vent. Rate : 070 BPM Atrial Rate : 070 BPM P-R Int : 180 ms QRS Dur : 096 ms QT Int : 456 ms P-R-T Axes : 029 009 050 degrees QTc Int : 492 ms Normal sinus rhythm Low voltage QRS Prolonged QT Abnormal ECG When compared with ECG of 25-JAN-2022 15:50, Vent. rate has decreased BY 61 BPM Borderline criteria for Anterior infarct are no longer Present Criteria for Inferior infarct are no longer Present Confirmed by Mike Meneses ([id number]) on 01/27/2022 6:07:51 PM Referred By: REFERRED SELF Confirmed By:Jaswant Meneses
[2022-01-27] MEDS: SACCHAROMYCES BOULARDII 250 MG CAP PO SCH (21:27)
[2022-01-28 06:58] LABS: Hematocrit (blood only) 34.5 % (42-52); Hemoglobin 11.3 g/dL (14.0-18.0); Mean Corpuscular Hemoglobin 33.1 pg (25-34); Mean Corpuscular Hgb Conc 32.8 g/dL (32-36); Mean Corpuscular Volume 101.2 fL (80-100); Mean Platelet Volume 10.4 fL (7.4-10.4); Platelet Count 311 K/uL (130-400); RDW Coefficient of Variation 14.3 % (11.5-14.5); RDW Standard Deviation 52.9 fL (36.4-46.3); Red Blood Count 3.41 M/uL (4.7-6.1); White Blood Count 9.34 K/uL (4.8-10.8)
[2022-01-28 07:25] LABS: BUN Creatinine Ratio 3.4 (10-20); Calcium 7.7 mg/dl (8.5-10.1); Creatinine Clr Calc Pharmacy 98.6 ml/min; Est GFR (African American) 110.3 ml/min; Est GFR (Non-African American) 95.1 ml/min; Magnesium 1.6 mg/dl (1.7-2.4); Potassium 3.2 mmol/L (3.5-5.1)
[2022-01-28] MEDS: FOLIC ACID 1 MG TAB PO SCH (08:20)
[2022-01-28] MEDS: FUROSEMIDE 40 MG TAB PO SCH ×2 (08:21→08:23)
[2022-01-28] MEDS: PROPRANOLOL HCL 20 MG TAB PO SCH ×2 (08:21→20:26)
[2022-01-28] MEDS: NICOTINE 21 MG/24 HR TDSY TD SCH (08:21)
[2022-01-28] MEDS: SACCHAROMYCES BOULARDII 250 MG CAP PO SCH ×2 (08:21→20:25)
[2022-01-28] MEDS: PANTOprazole 40 MG TAB PO SCH ×2 (08:21→20:25)
[2022-01-28] MEDS: SPIRONOLACTONE 100 MG TAB PO SCH ×2 (08:21→08:34)
[2022-01-28] MEDS: THIAMINE HCL 100 MG TAB PO SCH (08:22)
[2022-01-28] MEDS ORDERED: POTASSIUM CHLORIDE CRTAB 20 MEQ TABCR PO SCH (09:00)
[2022-01-28] MEDS ORDERED: SPIRONOLACTONE 25 MG TAB PO SCH (09:00)
[2022-01-28] MEDS: MAGNESIUM OXIDE 400 MG TAB PO SCH ×2 (09:29→20:27)
[2022-01-28] MEDS: ALBUMIN 25% 100 mL 25 GM/100 ML VIAL IV SCH ×2 (09:29→22:16)
[2022-01-28] MEDS: POTASSIUM CHLORIDE 20 MEQ/15 ML UDC PO SCH ×2 (09:29→20:24)
--- NOTE | 2022-01-28 12:48 | Hospitalist Progress Note ---
Date of Service January 28, 2022 Assessment & Plan (1) Esophageal bleeding: Plan: EGD 01/27 shows non bleeding esophageal varices -already on PPI and propranolol -discontinue cefriaxone (2) Decompensation of cirrhosis of liver: Plan: -likely alcoholic cirrhosis s/p large volume paracentesis x 2 followed by Albumin 5L removed 01/26 9.5L removed 01/27 -low salt diet -Lasix 40mg daily and spironolactone 100mg started per GI. However, patient with hypotension today. Will continue albumin 25mg BID and resume diuretics at lower dose when able (3) Alcohol abuse: Plan: -patient reports last drink was > 1 month ago (4) Chronic back pain: Plan: PT/OT evaluation ordered (5) Urinary retention: Plan: able to spontaneously void (6) Smoker: Plan: nicotine patch, encouraged to quit. (7) DVT prophylaxis: Plan: start SQ heparin Disposition-- Pending PT evaluation Admission and Anticipated Discharge Date Admission Date: January 25, 2022 Subjective BP low this morning Patient with reaccumulation of ascites again. "If my stomach looks like this immediately after draining, what's the point? I might as well go meet my maker!" Physical Exam Physical Exam: Appears chronically ill, disheveled, unkempt Respiratory: breathing comfortably on room air, no wheezing/rhonchi/rales Cardiovascular: regular rate and rhythm, no murmurs/rubs/gallops Gastrointestinal (Abdomen): Increased abdominal girth (compared to yesterday) but abdomen is not tense Musculoskeletal: no edema Neurologic: awake, alert, spontaneously moving extremities Results & Data Results & Data ([facility]) Vital Signs (Past 12 Hours) Vital Signs Temp Pulse Pulse Pulse Resp BP Pulse Ox 01/28/22 11:50 37.0 C 67 20 88/51 L 96 01/28/22 08:00 63 01/28/22 07:28 36.6 C 64 18 83/41 L 95 01/28/22 02:55 36.6 C 76 17 90/44 L 97 Laboratory Results Short CBC 01/28/22 Range/Units 05:46 WBC 9.34 (4.8-10.8) K/uL Hgb 11.3 L (14.0-18.0) g/dL Hct 34.5 L (42-52) % Plt Count 311 (130-400) K/uL [facility] 01/28/22 05:46 Sodium 138 Potassium 3.2 L Chloride 104 Carbon Dioxide 31 BUN 3 L Creatinine 0.87 Glucose 105 H Calcium 7.7 L Medications Administered Current Inpatient Medications Acetaminophen (Acetaminophen 500 Mg Tab) 500 mg PO Q6H PRN PRN Reason: Pain or Fever Stop: 02/24/22 21:55 Al Hydrox/Mg Hydrox/Simethicone (Aluminum/Magnesium/Simeth (Maalox Max) 30 Ml Udc) 30 ml PO Q6H PRN PRN Reason: severe heartburn Stop: 02/24/22 22:43 Last Admin: 01/25/22 23:03 Dose: 30 ml Documented by: Folic Acid (Folic Acid 1 Mg Tab) 1 mg PO QAM [facility] Stop: 02/24/22 22:59 Last Admin: 01/28/22 08:20 Dose: 1 mg Documented by: Furosemide (Furosemide 40 Mg Tab) 40 mg PO QAM [facility] Stop: 02/26/22 08:59 Last Admin: 01/28/22 08:23 Dose: Not Given Documented by: Ceftriaxone Sodium 1,000 mg/ (Dextrose) 50 mls @ 100 mls/hr IV Q24H [facility]; Protocol Stop: 02/05/22 00:00 Last Infusion: 01/27/22 23:58 Dose: Infused Documented by: Albumin Human (Albumin 25% 100 Ml) 25 gm in 100 mls @ 50 mls/hr IV BID [facility] Stop: 01/31/22 09:29 Last Infusion: 01/28/22 11:31 Dose: Infused Documented by: Lorazepam (Lorazepam 1 Mg Tab) 1 mg PO ONE PRN; Protocol PRN Reason: EtoH Withdrawal AWSS 6-10 Magnesium Oxide (Magnesium Oxide 400 Mg Tab) 400 mg PO BID [facility] Stop: 01/28/22 21:01 Last Admin: 01/28/22 09:29 Dose: 400 mg Documented by: Melatonin (Melatonin 3 Mg Tab) 3 mg PO HS PRN PRN Reason: Sleep Stop: 02/25/22 20:00 Last Admin: 01/26/22 21:29 Dose: 3 mg Documented by: Miscellaneous (Remove Nicoderm Patch) 1 ea N/A DAILY@0859 [facility] Stop: 02/25/22 08:58 Last Admin: 01/28/22 08:03 Dose: Not Given Documented by: Nicotine (Nicotine 21 Mg/24 Hr Tdsy) 21 mg TD QAM [facility] Stop: 02/25/22 08:59 Last Admin: 01/28/22 08:21 Dose: Not Given Documented by: Ondansetron HCl (Ondansetron Inj 2 Mg/Ml 2 Ml Vial) 4 mg IV Q6H PRN PRN Reason: Nausea Stop: 02/24/22 21:55 Last Admin: 01/25/22 23:28 Dose: 4 mg Documented by: Pantoprazole Sodium (Pantoprazole 40 Mg Tab) 40 mg PO BID [facility] Stop: 02/26/22 08:59 Last Admin: 01/28/22 08:21 Dose: 40 mg Documented by: Polyethylene Glycol (Polyethylene (Miralax) 17 Gm Pack) 17 gm PO DAILY PRN PRN Reason: Constipation Stop: 02/24/22 21:55 Potassium Chloride (Potassium Chloride 20 Meq/15 Ml Udc) 40 meq PO BID [facility] Stop: 01/28/22 21:01 Last Admin: 01/28/22 09:29 Dose: 40 meq Documented by: Propranolol HCl (Propranolol Hcl 20 Mg Tab) 20 mg PO BID [facility] Stop: 02/24/22 22:59 Last Admin: 01/28/22 08:21 Dose: Not Given Documented by: Saccharomyces Boulardii (Saccharomyces Boulardii 250 Mg Cap) 250 mg PO BID [facility] Stop: 02/26/22 20:59 Last Admin: 01/28/22 08:21 Dose: 250 mg Documented by: Spironolactone (Spironolactone 100 Mg Tab) 100 mg PO QAM [facility] Stop: 02/26/22 08:59 Last Admin: 01/28/22 08:34 Dose: Not Given Documented by: Thiamine HCl (Thiamine Hcl 100 Mg Tab) 100 mg PO QAM [facility] Stop: 02/24/22 22:59 Last Admin: 01/28/22 08:22 Dose: 100 mg Documented by:
[2022-01-29] MEDS ORDERED: FUROSEMIDE INJ 20 MG/2 ML VIAL IV ONE (01:29)
[2022-01-29] MEDS ORDERED: ALBUMIN 25% 12.5 GM/50 ML VIAL IV ONE (01:29)
[2022-01-29] MEDS ORDERED: ACETAMINOPHEN 500 MG TAB PO STA (01:29)
[2022-01-29 05:33] LABS: Hematocrit (blood only) 31.7 % (42-52); Hemoglobin 10.4 g/dL (14.0-18.0); Mean Corpuscular Hemoglobin 33.2 pg (25-34); Mean Corpuscular Hgb Conc 32.8 g/dL (32-36); Mean Corpuscular Volume 101.3 fL (80-100); Mean Platelet Volume 10.6 fL (7.4-10.4); Platelet Count 267 K/uL (130-400); RDW Coefficient of Variation 14.1 % (11.5-14.5); RDW Standard Deviation 52.3 fL (36.4-46.3); Red Blood Count 3.13 M/uL (4.7-6.1); White Blood Count 8.07 K/uL (4.8-10.8)
[2022-01-29 06:07] LABS: BUN Creatinine Ratio 6.8 (10-20); Calcium 7.8 mg/dl (8.5-10.1); Creatinine Clr Calc Pharmacy 115.9 ml/min; Est GFR (African American) 117.8 ml/min; Est GFR (Non-African American) 101.7 ml/min; Magnesium 1.7 mg/dl (1.7-2.4); Potassium 3.7 mmol/L (3.5-5.1)
[2022-01-29] MEDS: PHENAZOPYRIDINE HCL 100 MG TAB PO PRN (08:53)
[2022-01-29] MEDS: ALBUMIN 25% 100 mL 25 GM/100 ML VIAL IV SCH ×2 (08:53→20:42)
[2022-01-29] MEDS: SACCHAROMYCES BOULARDII 250 MG CAP PO SCH ×2 (08:54→20:44)
[2022-01-29] MEDS: NICOTINE 21 MG/24 HR TDSY TD SCH (08:54)
[2022-01-29] MEDS: PANTOprazole 40 MG TAB PO SCH ×2 (08:54→20:45)
[2022-01-29] MEDS: FOLIC ACID 1 MG TAB PO SCH (08:54)
[2022-01-29] MEDS: THIAMINE HCL 100 MG TAB PO SCH (08:54)
[2022-01-29] MEDS: PROPRANOLOL HCL 20 MG TAB PO SCH ×2 (08:54→20:45)
[2022-01-29] MEDS ORDERED: TAMSULOSIN HCL 0.4 MG CAP PO SCH (13:45)
[2022-01-29] MEDS ORDERED: LIDOCAINE 2% JELLY 5 ML TUBE ONE (13:50)
--- NOTE | 2022-01-29 14:06 | Hospitalist Progress Note ---
Date of Service January 29, 2022 Assessment & Plan (1) Esophageal bleeding: Plan: EGD 01/27 shows non bleeding esophageal varices -already on PPI and propranolol -discontinue cefriaxone (2) Decompensation of cirrhosis of liver: Plan: -likely alcoholic cirrhosis s/p large volume paracentesis x 2 followed by Albumin 5L removed 01/26 9.5L removed 01/27 -low salt diet -BP improved on albumin. Will continue for now. Resume lasix at 20mg daily. Spironolactone at 50mg daily with hold parameters (3) Alcohol abuse: Plan: -patient reports last drink was > 1 month ago (4) Chronic back pain: Plan: PT/OT evaluation ordered (5) Urinary retention: Plan: Now retaining again. Morales catheter placed. Start flomax (6) Smoker: Plan: nicotine patch, encouraged to quit. (7) DVT prophylaxis: Plan: SQ heparin Disposition-- Patient wants to return home Admission and Anticipated Discharge Date Admission Date: January 25, 2022 Subjective BP improved today Patient hoping to be discharged Later in afternoon, found to have urinary retention (bladder scan for > 1000cc urine). patient initially refused straight cath but finally agreed to morales catheter Physical Exam Physical Exam: dishevelled, appears older than stated age, chronically ill appearing Respiratory: breathing comfortably on room air, no wheezing/rhonchi/rales Cardiovascular: regular rate and rhythm, no murmurs/rubs/gallops Gastrointestinal (Abdomen): +increased girth, non tender Musculoskeletal: no edema Results & Data Results & Data ([facility]) Vital Signs (Past 12 Hours) Vital Signs Temp Pulse Pulse Resp BP Pulse Ox 01/29/22 12:00 36.8 C 76 18 104/63 98 01/29/22 08:00 36.8 C 73 91 H 18 96/59 L 96 01/29/22 03:41 37.7 C H 82 17 101/66 92 01/29/22 02:16 77 103/67 98 Laboratory Results Short CBC 01/29/22 Range/Units 04:51 WBC 8.07 (4.8-10.8) K/uL Hgb 10.4 L (14.0-18.0) g/dL Hct 31.7 L (42-52) % Plt Count 267 (130-400) K/uL [facility] 01/29/22 04:51 Sodium 136 Potassium 3.7 Chloride 106 Carbon Dioxide 27 BUN 5 L Creatinine 0.74 Glucose 92 Calcium 7.8 L Medications Administered Current Inpatient Medications Acetaminophen (Acetaminophen 500 Mg Tab) 500 mg PO Q6H PRN PRN Reason: Pain or Fever Stop: 02/24/22 21:55 Al Hydrox/Mg Hydrox/Simethicone (Aluminum/Magnesium/Simeth (Maalox Max) 30 Ml Udc) 30 ml PO Q6H PRN PRN Reason: severe heartburn Stop: 02/24/22 22:43 Last Admin: 01/25/22 23:03 Dose: 30 ml Documented by: Folic Acid (Folic Acid 1 Mg Tab) 1 mg PO QAM [facility] Stop: 02/24/22 22:59 Last Admin: 01/29/22 08:54 Dose: 1 mg Documented by: Furosemide (Furosemide 20 Mg Tab) 20 mg PO QAM [facility] Stop: 02/28/22 08:59 Albumin Human (Albumin 25% 100 Ml) 25 gm in 100 mls @ 50 mls/hr IV BID [facility] Stop: 01/31/22 09:29 Last Infusion: 01/29/22 10:55 Dose: Infused Documented by: Lorazepam (Lorazepam 1 Mg Tab) 1 mg PO ONE PRN; Protocol PRN Reason: EtoH Withdrawal AWSS 6-10 Melatonin (Melatonin 3 Mg Tab) 3 mg PO HS PRN PRN Reason: Sleep Stop: 02/25/22 20:00 Last Admin: 01/26/22 21:29 Dose: 3 mg Documented by: Miscellaneous (Remove Nicoderm Patch) 1 ea N/A DAILY@0859 [facility] Stop: 02/25/22 08:58 Last Admin: 01/29/22 08:40 Dose: Not Given Documented by: Nicotine (Nicotine 21 Mg/24 Hr Tdsy) 21 mg TD QAM [facility] Stop: 02/25/22 08:59 Last Admin: 01/29/22 08:54 Dose: Not Given Documented by: Ondansetron HCl (Ondansetron Inj 2 Mg/Ml 2 Ml Vial) 4 mg IV Q6H PRN PRN Reason: Nausea Stop: 02/24/22 21:55 Last Admin: 01/25/22 23:28 Dose: 4 mg Documented by: Pantoprazole Sodium (Pantoprazole 40 Mg Tab) 40 mg PO BID [facility] Stop: 02/26/22 08:59 Last Admin: 01/29/22 08:54 Dose: 40 mg Documented by: Phenazopyridine HCl (Phenazopyridine Hcl 100 Mg Tab) 100 mg PO TID PRN PRN Reason: Bladder pain Stop: 02/28/22 02:28 Last Admin: 01/29/22 08:53 Dose: 100 mg Documented by: Polyethylene Glycol (Polyethylene (Miralax) 17 Gm Pack) 17 gm PO DAILY PRN PRN Reason: Constipation Stop: 02/24/22 21:55 Propranolol HCl (Propranolol Hcl 20 Mg Tab) 20 mg PO BID [facility] Stop: 02/24/22 22:59 Last Admin: 01/29/22 08:54 Dose: Not Given Documented by: Saccharomyces Boulardii (Saccharomyces Boulardii 250 Mg Cap) 250 mg PO BID [facility] Stop: 02/26/22 20:59 Last Admin: 01/29/22 08:54 Dose: 250 mg Documented by: Spironolactone (Spironolactone 25 Mg Tab) 50 mg PO QAM [facility] Stop: 02/28/22 08:59 Tamsulosin HCl (Tamsulosin Hcl 0.4 Mg Cap) 0.4 mg PO HS [facility] Stop: 02/28/22 13:44 Thiamine HCl (Thiamine Hcl 100 Mg Tab) 100 mg PO QAM [facility] Stop: 02/24/22 22:59 Last Admin: 01/29/22 08:54 Dose: 100 mg Documented by:
[2022-01-29] MEDS: FUROSEMIDE 20 MG TAB PO SCH (14:10)
[2022-01-29] MEDS: SPIRONOLACTONE 25 MG TAB PO SCH (14:10)
[2022-01-29 17:32] LABS: Appearance Urine Cloudy (Clear); Color Urine Orange; Specific Gravity Urine 1.028 (1.000-1.030)
[2022-01-29 17:37] LABS: Epithelial Cell Urine 0-5 /lpf (0-5); RBC Urine >30 /hpf (0-4); WBC Urine 0-5 /hpf (0-5)
[2022-01-29 17:38] LABS: Bacteria Urine 1+ (Negative)
[2022-01-29] MEDS ORDERED: oxyCODONE HCL IR 5 MG TAB (IMMEDIATE RELEASE) PO PRN (19:25)
[2022-01-29] MEDS ORDERED: cefTRIAXone SODIUM 1,000 MG in DEXTROSE 5% 50 ML IV SCH (19:30)
[2022-01-29] MEDS: HEPARIN SOD 5,000 UNIT/0.5 ML VIAL SQ SCH (20:43)
--- NOTE | 2022-01-30 02:45 | Communication Note ---
Date of Service: January 29, 2022 Late entry Patient still with urinary urgency and burning pain as per RN not relieved by Tylenol and Pyridium. UA Cloudy, WBC 0-5 with bacteria AP Cystitis Follow urine CS, Ceftriaxone for now
[2022-01-30 06:45] LABS: BUN Creatinine Ratio 8.2 (10-20); Calcium 7.9 mg/dl (8.5-10.1); Creatinine Clr Calc Pharmacy 117.5 ml/min; Est GFR (African American) 118.5 ml/min; Est GFR (Non-African American) 102.2 ml/min; Magnesium 1.8 mg/dl (1.7-2.4); Potassium 3.5 mmol/L (3.5-5.1)
[2022-01-30] MEDS: HEPARIN SOD 5,000 UNIT/0.5 ML VIAL SQ SCH (08:12)
[2022-01-30] MEDS: SACCHAROMYCES BOULARDII 250 MG CAP PO SCH (08:12)
[2022-01-30] MEDS: SPIRONOLACTONE 25 MG TAB PO SCH (08:13)
[2022-01-30] MEDS: PHENAZOPYRIDINE HCL 100 MG TAB PO PRN (08:13)
[2022-01-30] MEDS: FUROSEMIDE 20 MG TAB PO SCH (08:13)
[2022-01-30] MEDS: THIAMINE HCL 100 MG TAB PO SCH (08:13)
[2022-01-30] MEDS: FOLIC ACID 1 MG TAB PO SCH (08:13)
[2022-01-30] MEDS: PANTOprazole 40 MG TAB PO SCH (08:13)
[2022-01-30] MEDS: NICOTINE 21 MG/24 HR TDSY TD SCH (08:13)
[2022-01-30] MEDS: PROPRANOLOL HCL 20 MG TAB PO SCH (08:14)
--- NOTE | 2022-01-30 15:21 | Discharge Summary ---
Date of Service January 30, 2022 Admission HPI Per Admitting Provider Hematemesis, esophageal thickening on CT CV: RRR Resp: CTA Abd: soft A/P: EGD Principal Diagnosis Decompensated Cirrhosis, likely alcoholic Non bleeding esophageal varices Discharge Exam He feels well. Denies feeling light headed or dizzy. Reports intermittent difficulty urinating even at home, he is uncertain if he has an enlarged prostate was called and discharge instructions reviewed with her Patient was instructed to abstain from alcohol. Patient is disheveled, appears older than stated age, no acute distress Abdomen is soft, non tender Lower extremity with no edema Breathing comfortably on room air Discharge Data Allergies Allergy/AdvReac Type Severity Reaction Status Date / Time No Known Allergies Allergy Verified 01/25/22 16:26 Consultations 01/25/22 20:59 ED Decision to Admit Stat 01/25/22 22:57 Consult Gastroenterology Routine Procedures Performed Operation Date: 01/26/22 17:15 <No data on this case meets the specified criteria> Operation Date: 01/27/22 16:30 Actual Procedures p EGD Biopsy Cytology - Bisi Multani MD Ordered Studies 01/25/22 19:09 CT abd pelvis wo con Stat CT chest diagnostic wo con Stat 01/26/22 07:00 US paracentesis abd w/image Routine 01/26/22 09:35 US duplex portal hepatic veins Routine 01/27/22 13:01 US paracentesis abd w/image Routine Hospital Course (1) Decompensation of cirrhosis of liver: (2) Alcohol abuse: (3) Chronic back pain: (4) Urinary retention: (5) Smoker: nicotine patch, encouraged to quit (6) Esophageal varices without bleeding: Mr Mike Bates is a 56 year old man with no prior medical history but with extensive alcohol use and current smoker presented to the ER on 01/25 with worsening abdominal pain and nausea/vomiting in the setting of increasing abdominal distension for past several months. Here, he underwent two large volume paracentesis (5L then 9.5L removed) then subsequently an EGD which showed non bleeding esophageal varices, portal gastropathy and non bleeding esophagitis. With his large volume paracentesis, he felt much better. Post procedure, he received albumin but continued to have hypotension so his albumin course was extended by 2 days. Prior to discharge, his blood pressure had stabilized and he was tolerating diuretics, a diet, and felt comfortable returning home. It was explained to him that he must abstain completely from alcohol, that he remain on a low salt and 1800cc fluid restricted diet to prevent recurrent ascites. He will need to follow up with GI for continued management of his cirrhosis. This was also explained to his . While here, he had intermittent difficulty urinating which may be related to his ascites but he also reports similar problems at home as well so he may have underlying BPH. He was started on flomax and instructed to follow up with his PCP for further management and referral to Urology if desired. Incidentally, his CT chest here showed prominent mediastinal lymph nodes and he needs a repeat CT chest in 6 months to monitor for stability. Total Time Total Time Spent Total Time Spent (In Minutes): 45 Discharge Plan Discharge Items Patient Disposition: Home - Self-Care Reason For Visit: DECOMPENSATED CIRRHOSIS Discharge Diagnosis: Decompensated Cirrhosis, likely alcoholic Non bleeding esophageal varices Condition on Discharge: Fair Activity: Resume your previous activity Non-emergency contact: Primary Care Provider and Boat Deckhand Call non-emergency contact if: you have any medication questions Follow-up/Referrals: David Adler [Primary Care Provider] - Jeremy Lynne MD [Physician] - Diet: Low Fat Fluids: 1800ml (7 cups) Addtl Attending Provider Instructions: You were admitted because of swelling of your abdomen and also becausea of vomiting You had 2 paracentesis (draining of your abdomen) with removal of total 15L fluid To avoid re-accumulation of fluid into into your abdomen--> you should be on a low salt diet and 1800 mL fluid restriction, also you were started on lasix 20mg daily and spironolactone 50mg daily. Please follow up with Gastroenterology for management of your cirrhosis Also, you had an EGD here which showed non bleeding esophageal varices. For this, you were started on propranolol While here, you had intermittent episodes of difficulty urinating. This may be due to the fluid in your abdomen, but it may also be due to prostate issues. You were started on flomax to help you urinate. This medicine may lower your blood pressure so you should take it at bedtime. Pending Studies at Discharge: No Stand-Alone Forms: My [facility] [employer], Smoking Cessation Medications and DC Order Prescriptions: New tamsulosin 0.4 mg Capsule 0.4 mg PO HS Qty: 30 RF: 0 propranolol 20 mg Tablet 20 mg PO BID 30 Days Qty: 60 RF: 1 spironolactone 25 mg Tablet 50 mg PO QAM Qty: 30 RF: 1 furosemide 20 mg Tablet 20 mg PO QAM 60 Days Qty: 30 RF: 1 thiamine HCl (vitamin B1) 100 mg Tablet 100 mg PO QAM 30 Days Qty: 30 RF: 0 phenazopyridine [Pyridium] 100 mg Tablet 100 mg PO TID PRN (Reason: painful urination) Qty: 6 RF: 0 folic acid 1 mg Tablet 1 mg PO QAM 30 Days Qty: 30 RF: 0 pantoprazole 40 mg Tablet,Delayed Release (Dr/Ec) 40 mg PO BID 30 Days Qty: 60 RF: 0 nicotine [Nicoderm CQ] 21 mg/24 hr patch 24 hour 1 patch transdermal DAILY Qty: 28 RF: 0 Discharge Orders: Discharge Order (Routine); Ordered 01/30/22 Ordered By: Marissa Maria/Other Patient Handouts: Treating Cirrhosis, Alcoholism Resources, Alcoholism: Getting Help, Cirrhosis of Liver Dc Admission Data Admit Date/Time: 01/25/22 21:32 Attending Provider: Marissa Johnston Admit Provider: Gwen Gaspar Primary Care Provider: David Adler Other Providers: Gwen Gaspar ; Jeremy Lynne ; Festus Price Other Interventions: Discharge Summary Assessment (RN) Last Done: 01/30/22 10:23
== END 2022-01-30 16:03 | disposition home or self-care (01) | DRG 369 ==
LOC: ED 15:41 → SUATTDRO 21:32 → 2S 21:32